=== PATIENT | female | born 1955 | race Caucasian/White ===

== ENCOUNTER → 2016-09-18 | Outpatient (CLI) | payer OTHER ==
[~2016-09-18] MED LIST: ALBU8I INH; AMBI5TAB PO; LORA-474 PO; NORC5TAB PO; PERC5TAB12 PO; PRED10 PO; VENTAER INH; ZOFR4TAB PO; ZOFR4TAB3 SL
== END ==
LOC: CPRE 09:28
PROVIDERS: ATTEND Orthopaedic Surgery
DX: Z01.812 Encounter for preprocedural laboratory examination (principal); M87.152 Osteonecrosis due to drugs, left femur; M79.609 Pain in unspecified limb

== ENCOUNTER 2016-12-20 10:02 | Day surgery (SDC) | payer OTHER ==
[~2016-12-20] VITALS: Ht 167.6 cm; Wt 51.0 kg
[~2016-12-20 10:02] MED LIST changes: -ALBU8I INH; -AMBI5TAB PO; -LORA-474 PO; +NS 1000P @30 MLS/HR (KVO) IV SCH; -PERC5TAB12 PO; -ZOFR4TAB3 SL
[2016-12-20] MEDS ORDERED: AMBI5TAB PO (10:59)
[2016-12-20] MEDS ORDERED: LORA-474 PO (10:59)
[2016-12-20 11:01] VITALS: BP 136/66; PULSE 104; RESP 18; TEMP 98; O2SAT 97
[2016-12-20 11:58] LABS: AUTOMATED NEUTROPHIL # 2.6 TH/MM3 (1.8-7.7); BASOPHIL # 0.1 TH/MM3 (0-0.2); BASOPHIL % 2.8 % (0.0-2.0); EOSINOPHIL # 0.2 TH/MM3 (0-0.4); EOSINOPHIL % 4.9 % (0.0-4.0); HEMATOCRIT 39.2 % (35.0-46.0); HEMO FLAGS DIFF FINAL; LYMPH % 26.1 % (9.0-44.0); LYMPHOCYTE # 1.3 TH/MM3 (1.0-4.8); MEAN CELL VOLUME 94.4 FL (80.0-100.0); MEAN CORPUSCULAR HEMOGLOBIN 32.8 PG (27.0-34.0); MEAN CORPUSCULAR HGB CONC 34.7 % (32.0-36.0); MONO % 12.2 % (0.0-8.0); PLATELET COUNT 220 TH/MM3 (150-450); RED BLOOD COUNT 4.16 MIL/MM3 (4.00-5.30); RED CELL DISTRIBUTION WIDTH 13.9 % (11.6-17.2); WHITE BLOOD COUNT 4.8 TH/MM3 (4.0-11.0)
[2016-12-20] MEDS ORDERED: HEPARIN-NS/PF INJ 500 ML ONE (12:10)
[2016-12-20 13:17] LABS: INTERNATIONAL NORMALIZED RATIO 1.2 RATIO; PROTHROMBIN TIME - PATIENT 13.1 SEC (9.8-11.6)
[2016-12-20 13:18] LABS: APTT (PATIENT) 31.5 SEC (24.3-30.1)
[2016-12-20 13:28] LABS: BICARBONATE 26.4 MEQ/L (21.0-32.0); POTASSIUM 3.9 MEQ/L (3.5-5.1)
[2016-12-20] MEDS ORDERED: MIDAZOLAM HCL 2 MG/2 ML VIAL ONE ×3 (13:34→14:48)
[2016-12-20] MEDS ORDERED: IOHEXOL 350 MG/ML 100 ML BTL (for Cath Lab) OTHER ONE (15:00)
--- NOTE | 2016-12-20 15:20 | CATHPROC ---
[employer] HIS Report Study Information Study Number Admission Scheduled Start Study Start 1037-17 12/20/2016 12/20/2016 Dec 20 2016 12:04PM Study Type [facility] Left and Right Heart Cath Cardiac Catheterization Referring Institution Admit Source Facility Department 1 Other [facility] - Collection Advisor Physician and Clinical Staff Initial Inderjit Brown Crystal Syrup Maker Jesus RN, Dean Recorder Aguila Griffin,RT(R) TECH2 Scrub Luzmaria Smith,RT(R) Procedures Performed Procedure Location (Site) Vessel Name Angiogram LV LV Ventricle Coronary Angiograms LCA Left Coronary Coronary Angiograms RCA Right Coronary Equipment Time Biometric Screener Description Size Mfg Part Number Used/Scraped [id number] 12:07 OWUSU ZIEGLER SWAN SHANI CATHETER FR 7 Used *[id number] TRANSDUCER, TRUWAVE [id number] 12:07 OWUSU ZIEGLER * Used W/STOCKCOCK *[id number] TRANSDUCER, TRUWAVE [id number] 12:07 OWUSU ZIEGLER * Used W/STOCKCOCK *[id number]-502-10.0- INTRODUCER SET, 12:07 [employer] FR 5 SC-NT-U-SST Used MICROPUNCTURE, STIFFENED *[id number] 538-476 *[id number] 538-420 *[id number] [id number] *[id number] INTRODUCER SET, 12:07 JRD Communication * [id number] Used MICROPUNCTURE [id number] 12:07 51 Give INDUSTRIES PACK, CCL CUSTOM * Used *[id number] 12:07 51 Give PACER PEN, SKIN DUAL W/ RULER * Used *[id number] 12:07 [email or web address] MEDICAL WIRE, 3MMJ .035 180CM 180CM Used *[id number] PROBE COVER, STERILE [id number] 12:07 [employer]UN * Used ULTRASOUND W/ GEL *[id number] 12:07 NAMIC MANIFOLD, 2 PORT * Used *[id number] 12:07 NAMIC MANIFOLD, 4 PORT * Used *[id number] 12:07 NYCOMED OMNIPAQUE, 350 MG, 150ML 150ML [id number] Used 14:46 NYCOMED OMNIPAQUE, 350 MG, 50ML 50ML [id number] Used [id number] 12:07 ELENA MEDICAL BLANKET,WARM AIR CCL * Used *[id number] 12:07 TERUMO MEDICAL SHEATH, FR4 TERUMO (10CM) FR 4 [id number] Used 12:07 TERUMO MEDICAL SHEATH, FR7 TERUMO (10CM) FR 7 [id number] Used History: Current Medications Medication Dosage/Unit Route Frequency Last Date/Time Taken PREDNISONE ATIVAN Ambien History: Allergies Allergy Reaction Ceftin NAUSEA/VOMITING/HIVES Dilaudid Confusion Ultram Confusion Cipro Nausea/Vomiting Latex Hives History: Risk Factors Family History of Hypertension Dyslipidemia Previous MD Previous Heart Failure Premature CAD No Yes No No No Prior Valve Prior PCI Prior CABG Surgery No No No Cerebrovascular Peripheral Artery Chronic Lung On Dialysis Diabetes Disease Disease Disease No No No Yes No History: Symptoms/Diagnosis Selection Items SOB History: Stress Tests Stress or Imaging Studies Performed Yes Standard Exercise Stress Test No Stress Echo No Stress Test SPECT No Stress Test CMR No Cardiac CTA Coronary Calcium Score No No History: Arrhythmias Selection Items Non-sustained VT PVC's History: Other Disease Selection Items COPD History: Other Current Smoker No Labs Hgb (g/dl) Hct (%) WBC (l/cumm) Platelets (thousands) 12.00-18.00 37.00-55.00 4.80-10.80 140.00-450.00 13.6 39.2 4.8 220 BUN (mg/dl) 8.00-20.00 90.7 Na (meq/l) K (meq/l) 138.00-146.00 3.80-5.10 137 3.9 PT (sec) INR (PTT:PT) 9.40-11.40 0.50-2.00 13.1 1.2 CPK-MB (ng/ML) 0.00-7.00 Not Drawn Medication Medication Total Dose (Bolus/Oral) Medication Total Dosage/Unit 1% XYLOCAINE 20 mL FENTANYL 100 mcg VERSED 5 mg Medications (Bolus/Oral) Medication Time Given Dosage/Unit Administered By Reason 1% XYLOCAINE 12/20/2016 2:26:59 PM 20 mL Inderjit Mancia 20 mL 1% XYLOCAINE given in lab by Inderjit Mancia in Right Groin via Subcutaneous. Ordered by Inderjit Moon. FENTANYL 12/20/2016 2:27:00 PM 50 mcg Dean Lee RN 50 mcg FENTANYL given in lab by Dean Lee RN via Peripheral IV. Ordered by Inderjit Mancia. VERSED 12/20/2016 2:28:00 PM 2 mg Dean Lee RN 2 mg VERSED given in lab by Dean Lee RN via Peripheral IV. Ordered by Inderjit Mancia. FENTANYL 12/20/2016 2:31:59 PM 50 mcg Dean Lee RN 50 mcg FENTANYL given in lab by Dean Lee RN via Peripheral IV. Ordered by Inderjit Mancia. VERSED 12/20/2016 2:32:00 PM 1 mg Dean Lee RN 1 mg VERSED given in lab by Dean Lee RN via Peripheral IV. Ordered by Inderjit Mancia. VERSED 12/20/2016 2:40:00 PM 1 mg Jesus AMBROSE, Dean 1 mg VERSED given in lab by Dean Lee RN via Peripheral IV. Ordered by Inderjit Mancia. VERSED 12/20/2016 2:49:00 PM 1 mg Dean Lee RN 1 mg VERSED given in lab by Dean Lee RN via Peripheral IV. Ordered by Inderjit Mancia. Medication (Drip) Medication Time Given Dosage/Unit Concentration/Unit Diluent (ml) Solution IV Solutions 12/20/2016 1:37:30 PM 0 mL (IV) 500 NaCl .9 Patient arrived on IV Solutions in Right Forearm via Peripheral IV. Pump/Drip Flow = 20 ml/hr using N aCl .9. Ordered by Inderjit Mancia. Initial Case Assessment Cardiovascular HR Rhythm 92 sr Edema Present Skin color Skin None Normal Warm Dry Circulatory - Right Pulses Dorsalis Pedis Femoral 2 2 Scale (0,1,2,3,4,d) Circulatory - Left Pulses Dorsalis Pedis Femoral 2 2 Scale (0,1,2,3,4,d) Circulatory - Lower Extremities Color Lower Right Color Lower Left Normal Normal Neurological State Oriented to time-place- Alert Moves all extremities person Respiration - General SpO2 (%) 100 Final Case Assessment Cardiovascular HR Rhythm NIBP Chest Pain 90 sr 124/65 0 Edema Present Skin color Skin None Normal Warm Dry Circulatory - Right Pulses Dorsalis Pedis Femoral 2 2 Scale (0,1,2,3,4,d) Circulatory - Left Pulses Dorsalis Pedis Femoral 2 2 Scale (0,1,2,3,4,d) Circulatory - Lower Extremities Color Lower Right Color Lower Left Normal Normal Neurological State Oriented to time-place- Alert Moves all extremities person Respiration - General SpO2 (%) 100 Chronological Log Time Study Chronological Log 13:37:14 Patient arrived via Bed. 13:37:15 Patient Name, D.O.B, / Armband Verified By R.N. 13:37:16 Consent signed by the physician and the patient and verified by the Collection Advisor staff. 13:37:19 Pre-op and post- op instructions given; patient acknowledges understanding of instructions. 13:37:22 Patient has been NPO for Less than 6Hrs. 13:37:22 Skin Breakdown- none 13:37:24 Patient Warmer Placed on the Table. 13:37:27 Abilio Prominences Protected 13:37:28 A # 20 IV was noted in the Forearm (right). Grade = 0 Patient arrived on IV Solutions in Right Forearm via Peripheral IV. Pump/Drip Flow = 20 ml/hr u sing NaCl .9. Ordered 13:37:30 by Inderjit Mancia. 13:37:34 History and physical on the chart or being dictated. Assessment: Initial Case, HR=92 BPM, Rhythm=sr, Edema=None, Color=Normal, Skin = Warm, Dry Right Pulses: Amador Ped=2, Femoral=2 Left Pulses: Amador Ped=2, Femoral=2 13:37:36 Lower Right Extremities: Color=Normal Lower Left Extremities: Color=Normal Neurological: State=Alert, Ox3, MENDEZ Respiration: XhR4=441 % 13:37:40 Table restraints applied according to hospital policy 13:37:43 Bilateral groins prepped with 2% chlorhexidine, and with a 3 min. waiting time. Vitals capture started with the following parameters, Patient=Adult, Interval=15 min, Initial P qzdweog=799 mmHg, :39:17 Deflation Rate=5 mmHg 13:39:29 Vitals capture stopped. Vitals capture started with the following parameters, Patient=Adult, Interval=15 min, Initial P lbgfmig=597 mmHg, 13:40:13 Deflation Rate=5 mmHg 13:40:39 Reference ECG taken 13:40:57 HR=94 bpm, UTCH=882/71 mmhg, SpO2=99.0 %, Resp=17 B/min, Pain=0, Quang=10, Malone=2 13:45:47 HR=96 bpm, MDHY=069/79 mmhg, SpO2=99.0 %, Resp=16 B/min 13:50:48 HR=85 bpm, IJUA=709/80 mmhg, SpO2=98.0 %, Resp=14 B/min 13:55:52 HR=93 bpm, KQUP=962/75 mmhg, SpO2=98.0 %, Resp=20 B/min, Pain=0, Quang=10, Malone=2 14:00:48 HR=82 bpm, JZAF=968/76 mmhg, SpO2=98.0 %, Resp=13 B/min, Pain=0, Quang=10, Malone=2 14:03:40 Pressure channel 1 zeroed. 14:05:52 HR=88 bpm, DNFF=792/74 mmhg, SpO2=99.0 %, Resp=12 B/min 14:06:24 Pressure channel 2 zeroed. 14:10:49 HR=89 bpm, VHCM=416/84 mmhg, SpO2=99.0 %, Resp=11 B/min, Pain=0, Quang=10, Malone=2 14:15:52 HR=91 bpm, NUOL=842/85 mmhg, SpO2=98.0 %, Resp=13 B/min, Pain=0, Quang=10, Malone=2 14:20:51 HR=87 bpm, SAQX=610/82 mmhg, SpO2=98.0 %, Resp=32 B/min, Pain=0, Quang=10, Malone=2 14:22:53 The physician was 120 minutes late. 14:25:50 HR=97 bpm, TBUK=340/70 mmhg, SpO2=97.0 %, Resp=20 B/min Time Out. Correct patient, correct procedure,correct physician, ,power injector loaded or not l oaded with contrast with 14:26:29 surgical team present. Time Out Concurred by MD, individual staff and DIE CASTING MACHINE SETTER in procedure 14:26:39 Case Start 20 mL 1% XYLOCAINE given in lab by Inderjit Mancia in Right Groin via Subcutaneous. Ordered by Blanche, 14:26:59 Inderjit. 14:27:00 50 mcg FENTANYL given in lab by Dean Lee RN via Peripheral IV. Ordered by Courtney Mancia. 14:27:10 Access site was Right Femoral Artery. 14:27:18 Access site was Right Femoral Vein. 14:28:00 2 mg VERSED given in lab by Dean Lee RN via Peripheral IV. Ordered by Inderjit Mancia. A INTRODUCER SET, MICROPUNCTURE, STIFFENED FR 5 was advanced into the Fem Art (right) using the Modified 14:30:36 Seldinger technique. 14:30:53 HR=93 bpm, ZJQE=911/74 mmhg, SpO2=95.0 %, Resp=20 B/min, Pain=0, Quang=10, Malone=2 A SHEATH, FR4 TERUMO (10CM) FR 4 was exchanged in the Fem Art (right). This was necessary in or monica to 14:31:03 accomodate a larger catheter. 14:31:59 50 mcg FENTANYL given in lab by Dean Lee RN via Peripheral IV. Ordered by Courtney Mancia. 14:32:00 1 mg VERSED given in lab by Dean Lee RN via Peripheral IV. Ordered by Inderjit Mancia. A JL 4.0 INFINITI CATHETER FR 4 was advanced over a wire. OMNIPAQUE, 350 MG, 150ML 150ML was us ed for 14:34:24 injections. Recorded Pressure: Ao, HR=88, Condition=Condition 1 14:35:10 (Aorta) Ao 128/77/99 14:35:28 The LCA was injected and visualized at various angles. OMNIPAQUE, 350 MG, 150ML 150ML used . Recorded Pressure: Ao, HR=87, Condition=Condition 1 14:35:50 (Aorta) Ao 130/75/98 14:35:52 HR=88 bpm, ASXC=979/71 mmhg, SpO2=95.0 %, Resp=14 B/min, Pain=0, Quang=10, Malone=2 After removing the current catheter a 3DRC INFINITI CATHETER FR 4 was advanced over a WIRE, 3MM J .035 180CM 14:39:25 180CM. 14:39:34 The RCA was injected and visualized at various angles. OMNIPAQUE, 350 MG, 150ML 150ML used . 14:40:00 1 mg VERSED given in lab by Dean Lee RN via Peripheral IV. Ordered by Inderjit Mancia. 14:40:51 HR=89 bpm, DRXL=109/75 mmhg, SpO2=95.0 %, Resp=11 B/min, Pain=0, Quang=10, Malone=2 After removing the current catheter a PIGTAIL ANG. INFINITI CATHETER FR 4 was advanced over a W WILLIE, 3MMJ .035 14:41:14 180CM 180CM. Recorded Pressure: LV, HR=84, Condition=Condition 1 14:43:02 (Left Ventricle) LV 131/2/8 Recorded Pressure: LV, Ao, HR=87, Condition=Condition 1 14:45:23 (Left Ventricle) LV 128/-19/10, (Aorta) Ao 124/65/92 14:45:48 The LV was injected at 8 cc/sec for a total of 32. OMNIPAQUE, 350 MG, 50ML 50ML used. 14:45:54 HR=88 bpm, YFZZ=689/66 mmhg, SpO2=93.0 %, Resp=19 B/min, Pain=0, Quang=10, Malone=2 A INTRODUCER SET, MICROPUNCTURE, STIFFENED FR 5 was advanced into the Fem Vein (right) using th e Modified 14:47:12 Seldinger technique. 14:47:21 A SHEATH, FR7 TERUMO (10CM) FR 7 was advanced into the Fem Vein (right) using the Modified Seldinger technique. 14:49:00 1 mg VERSED given in lab by Dean Lee RN via Peripheral IV. Ordered by Inderjit Mancia. 14:49:03 A SWAN SHANI CATHETER FR 7 was inserted via Fem Vein (right) 14:50:47 HR=86 bpm, SSPP=677/114 mmhg, SpO2=96.0 %, Resp=12 B/min Recorded Pressure: PCW, HR=83, Condition=Condition 1 14:51:10 (Pulmonary Capillary Wedge) PCW Recorded Pressure: MPA, HR=84, Condition=Condition 1 14:51:27 (Main Pulmonary Artery) MPA 17/06/17 Recorded Pressure: PCW, HR=89, Condition=Condition 1 14:54:23 (Pulmonary Capillary Wedge) PCW Thermo CO: CO=4.8 l/m, HR=89 bpm, Condition=Condition 1. Used in calculation. 14:55:29 Equipment: Description and Size=SWAN SHANI CATHETER FR 7, Type=Bath Probe, CC=0.579 Injectant: Temp=19.0 - 22.0 Celsius, Volume=10.0 ml 14:55:58 HR=88 bpm, DEDO=910/65 mmhg, SpO2=95.0 %, Resp=11 B/min, Pain=0, Quang=10, Malone=2 Thermo CO: CO=4.7 l/m, HR=90 bpm, Condition=Condition 1. Used in calculation. 14:55:59 Equipment: Description and Size=SWAN SHANI CATHETER FR 7, Type=Bath Probe, CC=0.579 Injectant: Temp=19.0 - 22.0 Celsius, Volume=10.0 ml Thermo CO: CO=4.6 l/m, HR=82 bpm, Condition=Condition 1. Used in calculation. 14:56:38 Equipment: Description and Size=SWAN SHANI CATHETER FR 7, Type=Bath Probe, CC=0.579 Injectant: Temp=19.0 - 22.0 Celsius, Volume=10.0 ml 14:57:07 Saturation: Site=Ao (Aorta) , O2=95.9 %, Hgb=13.6 gm/dl, Condition=Condition 1. Used in jad culation. 14:57:34 Saturation: Site=PA (Pulmonary Artery) , O2=79.5 %, Hgb=13.6 gm/dl, Condition=Condition 1. Used in calculation. Recorded Pressure: RV, HR=89, Condition=Condition 1 14:58:07 (Right Ventricle) RV Recorded Pressure: RA, HR=85, Condition=Condition 1 14:58:23 (Right Atrium) RA Recorded Pressure: RA, HR=88, Condition=Condition 1 14:58:34 (Right Atrium) RA 14:59:20 Saturation: Site=RA (Right Atrium) , O2=79.1 %, Hgb=13.6 gm/dl, Condition=Condition 1. Used in calculation. 15:00:55 HR=88 bpm, FIPD=165/56 mmhg, SpO2=97.0 %, Resp=8 B/min, Pain=0, Quang=10, Malone=2 15:01:50 [place] Shani Catheter Removed 15:02:02 Case End 15:06:31 HR=86 bpm, HEEG=662/70 mmhg, SpO2=97.0 %, Resp=10 B/min, Pain=0, Quang=10, Malone=2 Assessment: Final Case, HR=90 BPM, Rhythm=sr, INOJ=367/65 mmhg, Chest Pain=0, Edema=None, Amoret r=Normal, Skin = Warm, Dry Right Pulses: Amador Ped=2, Femoral=2 Left Pulses: Amador Ped=2, Femoral=2 15:09:56 Lower Right Extremities: Color=Normal Lower Left Extremities: Color=Normal Neurological: State=Alert, Ox3, MENDEZ Respiration: TgW1=333 % 15:12:01 Patient moved to stretcher 15:24:59 notes updated. d.e.r. End Study - Contrast Media Used In Study Contrast Total Opened (mL) Total Used (mL) Total Wasted (mL) Omnipaque 200 72 128 End Study - Radiation Exposure Fluoro Time (minutes) 3.4 End Study - Patient Disposition Complications Transferred To Interventional Outcome No Collection Advisor Holding No attempt made
--- NOTE | 2016-12-21 12:32 | MA ---
cc: INDERJIT MANCIA M.D., C. B. M.D (CHARLES). DATE 12/20/2016 PROCEDURE PERFORMED Cardiac catheterization. INDICATION FOR CATHETERIZATION. 1. Mitral regurgitation. 2. Shortness of breath on exertion. CONSENT A full, informed consent was obtained prior to the procedure. The risks of , bleeding, myocardial infarction, perforation, aspiration, foreseen and unforeseen complications were reviewed. The patient fully appeared to understand the risks. PROCEDURAL STATEMENTS The patient was draped and prepped in the usual manner. The right femoral artery and vein were entered using a micropuncture technique. Via the 4-Maltese sheath, a full left heart catheterization was carried out with bilateral coronaries and left ventriculogram. Following this, a right heart catheterization was carried out via the venous 7-Maltese sheath including cardiac outputs and saturations. At the end of the all catheters were removed. The sheaths were left in place, to be pulled in the holding area. FINDINGS I. HEMODYNAMICS The left ventricular pressure was 128 with the left ventricular end-diastolic pressure of 10. The aortic pressure was 124/____ with mean of 92. The mean pulmonary artery pressure is 26/11 with a mean of 17. The wedge pressure was 7/4 with a mean of 4. The right ventricular pressure was 24 with a right ventricular end-diastolic pressure of 3. The right atrial pressure was 3/1. ANGIOGRAPHY CORONARIES The left main is short and free of significant disease. The left anterior descending artery is a large vessel with enlarged first diagonal branch that trifurcated. The remainder of the LAD was large with a large septal process control specialist. There is no evidence of significant coronary artery disease. The circumflex artery is a large, very tortuous vessel and is free of significant disease. The right coronary artery gave off a medium-sized posterior descending artery and a large posterolateral branch. The right coronary artery was also very tortuous with mild 25-30% disease in its mid-section. LEFT VENTRICULOGRAM The left ventricular ejection fraction is estimated at 60%; it is normal. There is evidence of 4+ mitral regurgitation. CONCLUSIONS 1. Normal LV function. 2. 4+ mitral regurgitation. 3. No significant coronary artery disease. PLAN We will have to reevaluate for possible mitral valve repair. Given her very bad COPD, we will consider mitral valve clip versus minimally invasive mitral valve replacement. Inderjit Mancia MD, LINK,[facility]/CASSANDRA D 12/20/2016/3:19 PM T 01/03/2017/9:33 AM
--- NOTE | 2016-12-22 17:51 | MA ---
cc: INDERJIT MANCIA M.D. Corrected: 01/02/2017 DATE OF PROCEDURE 12/22/16 INDICATION FOR CATHETERIZATION Mitral regurgitation, marked shortness of breath. CONSENT Full informed consent was obtained prior to procedure. The risks of , bleeding, myocardial infarction, stroke, foreseen and foreseen complications reviewed. The patient fully appeared to understand the risks. PROCEDURE 1. Sedation. 2. Right and left heart catheterization. 3. Coronaries. 4. LV gram. PROCEDURAL STATEMENTS The patient was draped and prepped in the usual manner. The right femoral artery was entered using a micropuncture technique via the 4-Lithuanian sheath. Left and right coronary catheters used to intubate the left and right coronaries, pigtail catheter the left ventricle. Multiple angiographic views were carried out. Following this a full right heart catheterization was carried out. FINDINGS 1. HEMODYNAMICS: Thermodilution cardiac output was estimated at 4.7 liters per minute. Pulmonary artery saturation was 79.5, right ventricular pressure is 24 with a right ventricular end systolic pressure . Right atrial pressure was 4/2 with mean of 1. The wedge pressure was 7/4 with a mean of 4. Pulmonary artery pressure was 26/11 with a mean of 17. Femoral artery saturation was 97.0. CORONARIES The left main was short and free of significant disease. The left anterior descending had a very tortuous and free of significant disease. The circumflex artery was a large vessel with a large obtuse marginal branch and was free of significant disease. The right coronary artery was a large dominant artery with a medium sized PDA and a large posterolateral branch. There was a large diagonal branch, also free of significant disease coming off the LAD. There is a large tortuous obtuse marginal branch that was free of significant disease. LV gram showed normal ejection fraction 60%, heavy mitral annular calcification. There is evidence of 4+ mitral regurgitation. CONCLUSION 1. 4+ mitral vegetation. No significant coronary artery disease. PLAN Will possibly need mitral valve repair versus replacement and possibly a mitral valve clip given her history of severe lung disease. Inderjit Mancia MD, FRCP,FACC HAJ/ELIAN /3:13 PM /8:40 AM ZACH
== END 2016-12-20 19:42 | disposition home or self-care (01) ==
LOC: HDOC 10:02 → HDIC 10:03 → HDOC 19:42
PROVIDERS: ATTEND Internal Medicine Cardiovascular Disease
DX: I34.0 Nonrheumatic mitral (valve) insufficiency (principal); I34.1 Nonrheumatic mitral (valve) prolapse; J44.9 Chronic obstructive pulmonary disease, unspecified; F41.9 Anxiety disorder, unspecified; E78.5 Hyperlipidemia, unspecified; Z88.1 Allergy status to other antibiotic agents
CPT/HCPCS: 80048; 85025; 85610; 85730; 93460; C1769; C1893; J1644; J2250; J3010; J7030; Q9967

== ENCOUNTER 2017-04-19 07:53 | Day surgery (SDC) | payer MEDICARE, OTHER ==
--- NOTE | 2017-04-18 13:20 | PD.CAR.PN ---
CVT Progress Note Subjective/Hospital Course: sts data discussed with pt RISK SCORES About the STS Risk Calculator Procedure: MV Replacement Only Risk of Mortality: 1.542% Morbidity or Mortality: 16.524% Long Length of Stay: 7.432% Short Length of Stay: 26.023% Permanent Stroke: 1.083% Prolonged Ventilation: 10.844% DSW Infection: 0.139% Renal Failure: 2.225% Reoperation: 8.794% Tonya Jacobson Apr 18, 2017 13:20
[~2017-04-19] VITALS: Ht 167.6 cm; Wt 51.2 kg
[2017-04-19 06:11] VITALS: RESP 22; TEMP 97.8
[2017-04-19 07:16] VITALS: BP 120/79; PULSE 91; O2SAT 96
[~2017-04-19 07:53] MED LIST changes: +AMBI5TAB PO; +BUPIVACAINE HCL PF 0.5% 30 ML VIAL ONE; +CEFAZOLIN 500 MG in NS IRR BTL 500 ML IRRIGATION SCH; +CHLORHEXIDINE GLUCONATE 2 % 1 PACK (2 CLOTHS) TOPICAL PRN; +CHLORHEXIDINE GLUCONATE 4% SOLN 120 ML BTL TOPICAL SCH; +HEPARIN SODIUM - SQ 10,000 UNITS/ML VIAL ONE; +INSULIN HUMAN REGULAR 1,000 UNITS/10 ML VIAL SQ PRN; +INSULIN REGULAR 100 UNITS in NS 100 ML IV SCH; +IPRA17I INH; +LACTATED RINGER'S 1000 ML IV PRN; +LORA-474 PO; +METOPROLOL TARTRATE 25 MG TAB PO PRN; +METOPROLOL TARTRATE 25 MG TAB PO SCH; -NS 1000P @30 MLS/HR (KVO) IV SCH; +POVIDONE IODINE 5% (ANTISEPSIS KIT) 4 APPLICATIONS EACH NARE PRN; +SODIUM CHLORID 0.9% 500 ML IV PRN; +VANCOMYCIN HCL 1000 MG VIAL ONE; +ceFAZolin 2 GM PREMIX 0 ML ONE; +ceFAZolin 2 GM PREMIX 50 ML IV SCH; +methylPREDNISolone SOD SUCC 125 MG/2 ML VIAL ONE
--- NOTE | 2017-04-19 08:12 | EKG ---
Date Performed: 04/19/2017 Time Performed: 06:22:48 PTAGE: 62 years EKG: Sinus tachycardia with non-sustained ventricular tachycardia Left axis deviation Lateral ST -T changes are nonspecific Since previous tracing, now with NSVT Abnormal ECG PREVIOUS TRACING : 10/10/2014 13.35 DOCTOR: Zohra Mckay Interpretating Date/Time 04/19/2017 08:10:37
[2017-04-19 08:57] LABS: MRSA PCR NEGATIVE (NEGATIVE); STAPH AUREUS PCR NEGATIVE (NEGATIVE)
[2017-04-19] MEDS ORDERED: MIDAZOLAM HCL 5 MG/5 ML VIAL IV ONE (12:00)
[2017-04-19] MEDS ORDERED: fentaNYL CITRATE 1000 MCG/20 ML VIAL IV ONE (12:00)
== END 2017-04-19 08:07 | disposition home or self-care (01) ==
LOC: HSDC 07:53 → HSDI 07:55 → HSDC 08:07
PROVIDERS: ATTEND Thoracic Surgery (Cardiothoracic Vascular Surgery)
DX: I34.0 Nonrheumatic mitral (valve) insufficiency (principal); I50.33 Acute on chronic diastolic (congestive) heart failure; I47.2 Ventricular tachycardia; I10 Essential (primary) hypertension; I25.10 Atherosclerotic heart disease of native coronary artery without angina pectoris; J44.9 Chronic obstructive pulmonary disease, unspecified; Z53.09 Procedure and treatment not carried out because of other contraindication; Z79.891 Long term (current) use of opiate analgesic; Z79.51 Long term (current) use of inhaled steroids; Z79.52 Long term (current) use of systemic steroids; Z79.899 Other long term (current) drug therapy
CPT/HCPCS: 86850; 86900; 86901; 86920; 87640; 87641; 93005; G0463; J0690; J1644; J2250; J3010; J7120; 36430; 99211; J2930; J3370; P9016

== ENCOUNTER 2017-05-07 05:23 | Inpatient (IN) | payer OTHER, MEDICARE ==
[~2017-05-07] VITALS: Ht 167.6 cm; Wt 57.5 kg
[2017-05-07] VITALS (8 sets, daily range): BP systolic 94–157; BP diastolic 56–83; PULSE 91–109; RESP 12–18; TEMP 94.5–97.8; O2SAT 93–100
[~2017-05-07 05:23] MED LIST changes: -BUPIVACAINE HCL PF 0.5% 30 ML VIAL ONE; -CEFAZOLIN 500 MG in NS IRR BTL 500 ML IRRIGATION SCH; -CHLORHEXIDINE GLUCONATE 2 % 1 PACK (2 CLOTHS) TOPICAL PRN; -CHLORHEXIDINE GLUCONATE 4% SOLN 120 ML BTL TOPICAL SCH; -HEPARIN SODIUM - SQ 10,000 UNITS/ML VIAL ONE; -INSULIN HUMAN REGULAR 1,000 UNITS/10 ML VIAL SQ PRN; -INSULIN REGULAR 100 UNITS in NS 100 ML IV SCH; -LACTATED RINGER'S 1000 ML IV PRN; -METOPROLOL TARTRATE 25 MG TAB PO PRN; -METOPROLOL TARTRATE 25 MG TAB PO SCH; -POVIDONE IODINE 5% (ANTISEPSIS KIT) 4 APPLICATIONS EACH NARE PRN; -SODIUM CHLORID 0.9% 500 ML IV PRN; -VANCOMYCIN HCL 1000 MG VIAL ONE; -VENTAER INH; -ZOFR4TAB PO; -ceFAZolin 2 GM PREMIX 0 ML ONE; -ceFAZolin 2 GM PREMIX 50 ML IV SCH; -methylPREDNISolone SOD SUCC 125 MG/2 ML VIAL ONE
[2017-05-07] MEDS ORDERED: METOPROLOL TARTRATE 25 MG TAB PO PRN (05:45)
[2017-05-07] MEDS ORDERED: POVIDONE IODINE 5% (ANTISEPSIS KIT) 4 APPLICATIONS EACH NARE PRN (05:45)
[2017-05-07] MEDS ORDERED: INSULIN HUMAN REGULAR 1,000 UNITS/10 ML VIAL SQ PRN (05:45)
[2017-05-07] MEDS ORDERED: ceFAZolin 2 GM PREMIX 50 ML IV SCH (05:45)
[2017-05-07] MEDS ORDERED: INSULIN REGULAR 100 UNITS in NS 100 ML IV PRN (05:45)
[2017-05-07] MEDS ORDERED: LACTATED RINGER'S 1000 ML IV PRN (05:45)
[2017-05-07] MEDS ORDERED: CHLORHEXIDINE GLUCONATE 4% SOLN 120 ML BTL TOPICAL SCH (05:45)
[2017-05-07] MEDS ORDERED: SODIUM CHLORID 0.9% 500 ML IV PRN (05:45)
[2017-05-07] MEDS ORDERED: METOPROLOL TARTRATE 25 MG TAB PO SCH (05:45)
[2017-05-07] MEDS ORDERED: CHLORHEXIDINE GLUCONATE 2 % 1 PACK (2 CLOTHS) TOPICAL PRN (05:45)
[2017-05-07 06:26] LABS: AUTOMATED NEUTROPHIL # 3.4 TH/MM3 (1.8-7.7); BASOPHIL # 0.2 TH/MM3 (0-0.2); BASOPHIL % 2.3 % (0.0-2.0); EOSINOPHIL # 0.5 TH/MM3 (0-0.4); EOSINOPHIL % 7.8 % (0.0-4.0); HEMATOCRIT 39.1 % (35.0-46.0); HEMO FLAGS DIFF FINAL; LYMPH % 29.6 % (9.0-44.0); LYMPHOCYTE # 1.9 TH/MM3 (1.0-4.8); MEAN CELL VOLUME 96.5 FL (80.0-100.0); MEAN CORPUSCULAR HEMOGLOBIN 33.3 PG (27.0-34.0); MEAN CORPUSCULAR HGB CONC 34.5 % (32.0-36.0); MONO % 7.2 % (0.0-8.0); NEUT % 53.1 % (16.0-70.0); PLATELET COUNT 231 TH/MM3 (150-450); RED BLOOD COUNT 4.05 MIL/MM3 (4.00-5.30); RED CELL DISTRIBUTION WIDTH 13.1 % (11.6-17.2); WHITE BLOOD COUNT 6.4 TH/MM3 (4.0-11.0)
[2017-05-07] MEDS ORDERED: HEPARIN SODIUM - SQ 10,000 UNITS/ML VIAL ONE (06:33)
[2017-05-07] MEDS ORDERED: methylPREDNISolone SOD SUCC 125 MG/2 ML VIAL ONE (06:34)
[2017-05-07] MEDS ORDERED: ceFAZolin 2 GM PREMIX 50 ML ONE (06:34)
[2017-05-07] MEDS ORDERED: VANCOMYCIN HCL 1000 MG VIAL ONE (06:34)
[2017-05-07 06:40] LABS: INTERNATIONAL NORMALIZED RATIO 1.1 RATIO
[2017-05-07 06:47] LABS: BICARBONATE 22.5 MEQ/L (21.0-32.0); POTASSIUM 3.6 MEQ/L (3.5-5.1)
[2017-05-07 06:50] LABS: BLOOD, URINE NEG (NEG); COMMENT (UR) CULT NOT INDICATED; CULTURE IF INDICATED CULT NOT INDICATED; GLUCOSE,URINE NEG (NEG); KETONE, URINE NEG (NEG); NITRITE,URINE NEG (NEG); SQUAMOUS EPITHELIAL CELL URINE <1 /hpf (0-5); URINE COLOR LIGHT-YELLOW (YELLW/STRAW)
[2017-05-07] MEDS ORDERED: CUSTODIOL HTK IRR SOLN 2,000 ML ONE (07:18)
[2017-05-07] MEDS ORDERED: MANNITOL INJ 100 ML ONE (07:18)
[2017-05-07] MEDS ORDERED: HEPARIN SODIUM - IV 10,000 UNITS/10 ML VIAL ONE (07:19)
[2017-05-07] MEDS ORDERED: POTASSIUM CHLORIDE 20 MEQ/10 ML VIAL ONE (07:19)
[2017-05-07] MEDS ORDERED: SODIUM BICARBONATE 8.4% INJ 100 ML ONE (07:20)
[2017-05-07] MEDS: MUPIROCIN 2% OINT 22 GM TUBE EACH NARE SCH ×2 (09:00→21:00)
[2017-05-07] MEDS ORDERED: BUPIVACAINE HCL PF 0.5% 30 ML VIAL ONE (10:46)
[2017-05-07] MEDS ORDERED: DEXMEDETOMIDINE HCL 200 MCG/2 ML VIAL ONE (10:53)
[2017-05-07] MEDS ORDERED: HEPARIN SODIUM - SQ 10,000 UNITS/ML VIAL SQ ONE (12:00)
[2017-05-07] MEDS ORDERED: VECURONIUM BROMIDE 10 MG VIAL IV ONE (12:00)
[2017-05-07] MEDS ORDERED: PROTAMINE SULFATE 250 MG/25 ML VIAL IV ONE (12:00)
[2017-05-07] MEDS ORDERED: MIDAZOLAM HCL 2 MG/2 ML VIAL IV ONE (12:00)
[2017-05-07] MEDS ORDERED: NOREPINEPHRINE 4 MG/4 ML AMP IV ONE (12:00)
[2017-05-07] MEDS ORDERED: SODIUM BICARBONATE 8.4% INJ 50 MEQ/50 ML SYR IV ONE (12:00)
[2017-05-07] MEDS ORDERED: ARTIFICIAL TEARS OPTH OINT 3.5 APPLIC/3.5 GM TUBO EACH EYE ONE (12:00)
[2017-05-07] MEDS ORDERED: LIDOCAINE HCL 2% 100 MG/5 ML SYRINGE OTHER ONE (12:00)
[2017-05-07] MEDS ORDERED: ESMOLOL HCL 100 MG/10 ML VIAL IV ONE (12:00)
[2017-05-07] MEDS ORDERED: PROPOFOL 500 MG/50 ML BTL IV ONE (12:00)
[2017-05-07] MEDS ORDERED: CARDIOPLEGIC IRR 2,000 ML IRRIGATION ONE (12:00)
[2017-05-07] MEDS ORDERED: MAGNESIUM SULFATE 1 GM/2 ML VIAL IV ONE (12:00)
[2017-05-07] MEDS ORDERED: PHENYLEPH/NS 1000 MCG/10 ML SYR IV ONE (12:00)
[2017-05-07] MEDS ORDERED: PHENYLEPHRINE HCL 10 MG/ML VIAL IV ONE (12:00)
[2017-05-07] MEDS ORDERED: ePHEDrine/NS 25 MG/5 ML SYR IV ONE (12:00)
[2017-05-07] MEDS ORDERED: CALCIUM CHLORIDE 10% SOLN 1 GRAM/10 ML SYR IV ONE (12:00)
[2017-05-07] MEDS ORDERED: LACTATED RINGER'S 1000 ML INJ 500 ML IV PRN (12:09)
[2017-05-07] MEDS ORDERED: ALBUMIN 5% INJ 250 ML IV PRN (12:15)
[2017-05-07] MEDS ORDERED: SODIUM BICARBONATE 8.4% SOLN 50 MEQ/50 ML VIAL IV PUSH PRN ×2 (12:15)
[2017-05-07] MEDS ORDERED: CALCIUM CHLORIDE INJ 1 GM in SODIUM CHLORIDE 0.9% INJ 100 ML IV PRN (12:15)
[2017-05-07] MEDS ORDERED: NOREPINEPHRINE-DEXTROSE DRIP 250 ML IV SCH (12:15)
[2017-05-07] MEDS ORDERED: CALCIUM CHLORIDE 10% 1 GRAM/10 ML VIAL IV PUSH PRN (12:15)
[2017-05-07] MEDS ORDERED: INSULIN REGULAR (IV INFUSION) 100 UNITS in SODIUM CHLORIDE 0.9% INJ 99 ML IV PRN (12:15)
[2017-05-07] MEDS ORDERED: CLEVIDIPINE INJ 50 ML IV PRN (12:15)
[2017-05-07] MEDS ORDERED: hydrALAZINE HCL 20 MG/ML VIAL IV PUSH PRN (12:15)
[2017-05-07] MEDS ORDERED: METOPROLOL TARTRATE 5 MG/5 ML VIAL IV PUSH PRN (12:15)
[2017-05-07] MEDS ORDERED: Post-op Orders (for Pharmacy) MISC OTHER ONE (12:15)
[2017-05-07] MEDS ORDERED: ONDANSETRON HCL 4 MG/2 ML VIAL IV PUSH PRN (12:15)
[2017-05-07] MEDS ORDERED: ACETAMINOPHEN 650 MG SUPP RECTAL PRN (12:15)
[2017-05-07] MEDS ORDERED: ACETAMINOPHEN 325 MG TAB PO PRN (12:15)
[2017-05-07] MEDS ORDERED: MAGNESIUM SULFATE INJ 2 GM in SODIUM CHLORIDE 0.9% INJ 100 ML IV PRN ×4 (12:15)
[2017-05-07] MEDS ORDERED: POTASSIUM CHLOR 20 MEQ PREMIX 100 ML IV PRN ×2 (12:15)
[2017-05-07] MEDS ORDERED: RESP: RACEPINEPHRINE 2.25% 0.5 ML NEB NEB PRN (12:15)
[2017-05-07] MEDS ORDERED: POTASSIUM CHLORIDE 20 MEQ CONTROLLED RELEASE TAB PO PRN ×2 (12:15)
[2017-05-07] MEDS ORDERED: LORazepam 1 MG TAB PO PRN (12:15)
[2017-05-07] MEDS ORDERED: DEXMEDETOMIDINE INJ 200 MCG in SODIUM CHLORIDE 0.9% INJ 50 ML IV PRN (12:15)
--- NOTE | 2017-05-07 12:31 | PD.OP ---
cc: Inderjit Mancia MD; Argentina Molina MD Operative Report Date of Surgery: May 07, 2017 Preoperative Diagnosis: (1) Mitral regurgitation (2) Diastolic CHF due to valvular disease Postoperative Diagnosis: same Procedure: Minimally invasive MV repair with a 30 Camden ring WENDI Ultrasound guided percutaneous cannulation of the left femoral artery and vein with Perclose closure of the artery Anesthesia: Dr. Mohr Surgeon: Argentina Molina Crushing Mill Operator(s): Tommy Fletcher MD Operation and Findings: Standard monitoring lines and Melton catheter were placed. General anesthesia was induced. The patient was prepped and draped in a sterile fashion. A 6 cm right anterior thoracotomy was performed in the 5th intercostal space. An Jared retractor was placed followed by a small chest retractor. The pericardium was opened and a pericardial sling was created using interrupted 0 silk sutures. A small 1 cm incision was made at the 7th intercostal space and an LV vent CO2 line were placed through this access port. The aorta was dissected posteriorly for crossclamp placement. The left femoral artery and vein were percutaneously accessed using ultrasound guidance. The patient was heparinized for cardiopulmonary bypass. The left femoral artery was cannulated with a 17F [employer] arterial cannula. The left femoral vein was cannulated with a 21 [employer] cannula under WENDI guidance. Three Perclose devices were placed in the artery for later closure. Antegrade Custodiol cardioplegia was employed. The patient was placed on cardiopulmonary bypass. Waterstons groove was dissected using electrocuatery and blunt dissection. An aortic cross-clamp was applied and the heart was arrested using cold Custodiol cardioplegia delivered through a 14F catheter. The left atrium was opened and the mitral valve was exposed. The valve was analyzed and both leaflets were redundant with some prolapse. In order to increase the zone of coaptation, an annuloplasty was performed using a 30 [address] Zack Camden ring. This was performed using interrupted 4-0 Ticron horizontal mattress sutures. The repair was tested and found to be excellent. The left atrium was closed using running 4-0 Prolene suture. The patient systemically rewarmed and placed in Trendelenburg position. The cross clamp was removed, with the aorta and LV vented. The patient was easily weaned from cardiopulmonary bypass. Decannulation was carried out without incident and the artery was secured with the Perclose sutures. The vein was controlled with manual compression. Protamine was given. There was no adverse reaction. Intraoperative WENDI following the procedure showed a good repair with no MR or ALANNA. LV function was preserved. Wound was checked for hemostasis was obtained using electrocautery. A 32F right pleural chest tube was placed and secured to the skin with a 0 silk suture. The ribs were approximated using a 1 Vicryl suture. The subcutaneous tissue was closed using a running 3-0 Monocryl suture. The skin was closed with 4-0 Monocryl. Sterile dressings were placed. At the end of the operation, all sponge, instruments, and needle counts were correct. The patient was transferred to the CVICU in stable condition. The patient was noted to have a left pneumothorax and a 28F chest tube was placed percutaneously. Argentina Molina MD May 07, 2017 12:31
[2017-05-07] MEDS ORDERED: RESP: ALBUTEROL 2.5 MG/IPRATROPIUM 0.5 MG NEB (SCH) ONE (12:35)
[2017-05-07] MEDS: ACETAMINOPHEN 1000 MG/100 ML 100 ML IV SCH ×2 (13:46→18:18)
[2017-05-07] MEDS: POTASSIUM CHLOR 20 MEQ PREMIX 100 ML IV PRN ×2 (13:47→20:45)
--- NOTE | 2017-05-07 13:53 | RADRPT ---
EXAM DATE/TIME: 05/07/2017 13:23 [facility] COMPARISON: CHEST SINGLE AP, October 10, 2014, 14:06. INDICATIONS : Post stat CABG. MEDICAL HISTORY : Cardiovascular disease. Chronic obstructive pulmonary disease. Asthma. SURGICAL HISTORY : Cholecystectomy. ENCOUNTER: Subsequent ACUITY: 2 days PAIN SCORE: Non-responsive. LOCATION: Bilateral chest FINDINGS: The bilateral chest tubes and endotracheal tube are in good position. The heart is normal in size. Th e lungs demonstrate chronic interstitial changes but are otherwise clear. The bony structures are grossly intact. Note is made of an introducer sheath with interest of the head the left subclavian. The catheter is d irected cephalad into the left internal jugular. CONCLUSION: 1. The patient's left subclavian catheter is directed cephalad into the left internal jugular. 2. Bilateral chest tubes and endotracheal tube in good position. 3. Chronic interstitial changes within the pulmonary parenchyma Freddy Cox MD on May 07, 2017 at 13:51 Board Certified Radiologist. This report was verified electronically.
[2017-05-07] MEDS: RESP: ALBUTEROL 2.5 MG/IPRATROPIUM 0.5 MG NEB (PRN) NEB ×2 (14:59→21:02)
[2017-05-07] MEDS ORDERED: CALCIUM CHLORIDE INJ 1 GM in SODIUM CHLORIDE 0.9% INJ 100 ML IV ONE ×2 (16:00→22:00)
[2017-05-07] MEDS: DEXTROSE 50% IN WATER 50 ML VIAL(D50) IV PUSH PRN (20:45)
--- NOTE | 2017-05-07 21:55 | EKG ---
Date Performed: 05/07/2017 Time Performed: 06:30:25 PTAGE: 62 years EKG: Sinus rhythm WITH OCCASIONAL VENTRICULAR PREMATURE COMPLEXES MARKED LEFT AXIS DEVIATION MODERATE INTRAVENTRICULAR CONDUCTION DELAY ABNORMAL ECG Compared to the PREVIOUS TRACING NSVT no longer present DOCTOR: Evelyne Varghese Interpretating Date/Time 05/07/2017 21:54:41
[2017-05-07] MEDS ORDERED: MAGNESIUM SULFATE 2 GM/NS 100 ML IV ONE ×2 (22:00)
[2017-05-07] MEDS ORDERED: AMIODARONE 150 MG/D5W 97 ML BOLUS 10 MINUTES IV ONE ×2 (22:00)
[2017-05-08] VITALS (17 sets, daily range): BP systolic 106–131; BP diastolic 54–76; PULSE 86–110; RESP 16–22; TEMP 97.7–98.4; O2SAT 92–99
[2017-05-08] MEDS: ACETAMINOPHEN 1000 MG/100 ML 100 ML IV SCH ×2 (00:06→06:20)
[2017-05-08] MEDS: DEXTROSE 50% IN WATER 50 ML VIAL(D50) IV PUSH PRN (01:45)
[2017-05-08] MEDS: RESP: ALBUTEROL 2.5 MG/IPRATROPIUM 0.5 MG NEB (PRN) NEB ×2 (02:07→07:41)
[2017-05-08 03:24] LABS: HEMATOCRIT 27.9 % (35.0-46.0); MEAN CELL VOLUME 97.2 FL (80.0-100.0); MEAN CORPUSCULAR HEMOGLOBIN 33.3 PG (27.0-34.0); MEAN CORPUSCULAR HGB CONC 34.2 % (32.0-36.0); PLATELET COUNT 92 TH/MM3 (150-450); RED BLOOD COUNT 2.87 MIL/MM3 (4.00-5.30); RED CELL DISTRIBUTION WIDTH 12.9 % (11.6-17.2); WHITE BLOOD COUNT 11.6 TH/MM3 (4.0-11.0)
[2017-05-08 03:47] LABS: BICARBONATE 23.7 MEQ/L (21.0-32.0); MAGNESIUM 2.2 MG/DL (1.5-2.5); POTASSIUM 4.2 MEQ/L (3.5-5.1)
[2017-05-08 04:02] LABS: REVIEW FLAG FINAL
[2017-05-08] MEDS: predniSONE 10 MG TAB PO PRN ×3 (04:02→18:33)
--- NOTE | 2017-05-08 05:58 | RADRPT ---
EXAM DATE/TIME: 05/08/2017 04:47 [facility] COMPARISON: CHEST SINGLE AP, May 07, 2017, 13:23. INDICATIONS : Short of breath. MEDICAL HISTORY : Cardiovascular disease. Chronic obstructive pulmonary disease. Asthma. SURGICAL HISTORY : None. ENCOUNTER: Subsequent ACUITY: 1 week PAIN SCORE: 0/10 LOCATION: Bilateral chest FINDINGS: The cardiac silhouette is enlarged in transverse diameter. A right chest tube is in place. There is n o evidence of pneumothorax. Left chest tube is slightly kinked with a small left apical pneumothorax without tension. There is right lower lobe atelectasis versus pneumonia. This is new when compared wi th the prior exam. CONCLUSION: 1. Small left apical pneumothorax 2. New right basilar atelectasis versus pneumonia Timi Gonzalez MD on May 08, 2017 at 5:56 Board Certified Radiologist. This report was verified electronically.
[2017-05-08] MEDS: PANTOPRAZOLE SOD 40 MG DELAYED RELEASE TAB PO SCH (06:00)
[2017-05-08] MEDS ORDERED: SOD PHOSPHATE/SOD BIPHOSPHATE (ADULT) ENEMA 133ML RECTAL PRN (09:00)
[2017-05-08] MEDS ORDERED: BISACODYL 10 MG SUPP RECTAL PRN (09:00)
[2017-05-08] MEDS ORDERED: GLUCAGON 1 MG/ML VIAL OTHER PRN (09:00)
[2017-05-08] MEDS ORDERED: MULTIVITAMIN INJ 10 ML, THIAMINE INJ 500 MG, FOLIC ACID INJ 1 MG in SODIUM CHLORID 0.9%... IV SCH (09:00)
[2017-05-08] MEDS ORDERED: INSULIN DETEMIR 100 UNITS/ML VIAL SQ ONE (09:00)
[2017-05-08] MEDS: MAGNESIUM HYDROXIDE SUSP 30 ML CUP PO SCH (09:00)
[2017-05-08] MEDS ORDERED: DEXTROSE 50% IN WATER 50 ML VIAL(D50) IV PUSH PRN (09:00)
[2017-05-08] MEDS: ACETAMINOPHEN/HYDROcodone 325 MG/5 MG TAB PO PRN ×3 (09:08→20:22)
[2017-05-08] MEDS: TIOTROPIUM BROMIDE 18 MCG INH INH SCH (09:08)
[2017-05-08] MEDS: ASPIRIN 81 MG CHEW TAB PO SCH (09:08)
[2017-05-08] MEDS ORDERED: PILL SPLITTER OTHER PRN (09:30)
[2017-05-08] MEDS: MULTIVITAMINS/MINERALS THERAPEUTIC TAB PO SCH (10:27)
[2017-05-08] MEDS: METOPROLOL TARTRATE 25 MG TAB PO SCH ×2 (10:27→20:20)
[2017-05-08] MEDS ORDERED: POTASSIUM CHLOR 20 MEQ PREMIX 100 ML ONE (11:20)
[2017-05-08] MEDS: INSULIN ASPART SUPPLEMENTAL SCALE SQ SCH ×3 (13:36→21:42)
[2017-05-08] MEDS ORDERED: BENZOCAINE-MENTHOL (SUGAR FREE) 15 MG-3.6 MG LOZENGE BUCCAL PRN (15:30)
--- NOTE | 2017-05-08 17:51 | PD.CAR.PN ---
CVT Progress Note Subjective/Hospital Course: 62/ multi medical hx / hx of MVP severe MR elective surgery PMH: Vtach, esophageal strictures/ prior dilation , asthma, HLP, COPD anxiety , EF 57% surgery : Mini MVR 30 sequin ring/ WENDI intraop 05/07 extubated after surgery 05/08 c/o of difficulty swallowing , speech therapy consulted, requesting GI consult with Dr Huerta weaned off insulin gtt, pain controlled , add low dose xanax transfer to stepdown cxr small right apical PTX Objective: GENERAL: SKIN: Warm and dry. dressing D&I right upper chest wall, HEAD: Normocephalic. EYES: No scleral icterus. No injection or drainage. NECK: Supple, trachea midline. No JVD or lymphadenopathy. CARDIOVASCULAR: Regular rate and rhythm without murmurs, gallops, or rubs. RESPIRATORY: Breath sounds equal bilaterally. No accessory muscle use. right and left chest tube in place , right + 1 air leak GASTROINTESTINAL: Abdomen soft, non-tender, nondistended. MUSCULOSKELETAL: No cyanosis, or edema. BACK: Nontender without obvious deformity. No CVA tenderness. Vital Signs Date Time Temp Pulse Resp B/P (MAP) Pulse Ox O2 Delivery O2 Flow Rate FiO2 05/08/17 17:01 98 05/08/17 16:00 104 05/08/17 15:30 96 Nasal Cannula 4.00 05/08/17 15:30 97.7 97 20 125/76 (92) 96 05/08/17 15:01 102 05/08/17 14:00 110 05/08/17 13:00 102 05/08/17 11:01 92 Nasal Cannula 4.00 05/08/17 11:01 97.7 96 22 125/69 (87) 92 Arterial Line 05/08/17 07:41 94 Nasal Cannula 4.00 05/08/17 07:00 94 Nasal Cannula 4.00 05/08/17 07:00 96 05/08/17 07:00 97.9 100 16 122/74 (90) 97 123/65 (84) 05/08/17 06:50 16 05/08/17 04:00 98 Nasal Cannula 4.00 05/08/17 03:00 98.0 91 18 118/66 (83) 98 131/66 (87) 05/08/17 03:00 95 05/08/17 00:00 97 Nasal Cannula 4.00 05/08/17 00:00 18 05/07/17 23:00 91 05/07/17 23:00 97.8 91 18 136/72 (93) 97 05/07/17 21:55 99 Nasal Cannula 4.00 05/07/17 21:40 98 143/72 05/07/17 20:00 97 Nasal Cannula 4.00 05/07/17 19:00 97.6 102 18 113/64 (80) 96 05/07/17 19:00 102 05/07/17 19:00 18 Result Diagram: 05/08/17 0305 05/08/17 0305 Telemetry: NSR (1) COPD (chronic obstructive pulmonary disease) Plan: nebs, wean 02 as tolerated (2) Anxiety Plan: dd prn xanax (3) History of esophageal stricture Plan: consult GI, speech (4) Dysphagia (5) S/P MVR (mitral valve replacement) Plan: ASA, (6) Mitral regurgitation (7) Diastolic CHF due to valvular disease Tonya Jacobson May 08, 2017 17:51
[2017-05-08] MEDS: RESP: ALBUTEROL 2.5 MG/IPRATROPIUM 0.5 MG NEB (SCH) NEB (19:35)
--- NOTE | 2017-05-08 20:15 | EKG ---
Date Performed: 05/08/2017 Time Performed: 05:05:04 PTAGE: 62 years EKG: Sinus rhythm with PVC(s) Leftward axis Poor R wave progression - probable normal variant Low QRS voltages in prec ordial leads Since previous tracing 05/07/2017, QRS slightly narrower, otherwise no significant price e. Borderline ECG PREVIOUS TRACING : 05/07/2017 06.30 DOCTOR: Kam Vail Interpretating Date/Time 05/08/2017 20:14:35
[2017-05-08] MEDS: AMIODARONE 200 MG TAB PO SCH (20:22)
[2017-05-08] MEDS: DOCUSATE SODIUM 100 MG CAP PO SCH (21:00)
[2017-05-08] MEDS: SENNOSIDES 8.6 MG TAB PO SCH (21:00)
[2017-05-09] VITALS (29 sets, daily range): BP systolic 100–121; BP diastolic 56–58; PULSE 80–94; TEMP 98.2–99.2; O2SAT 97–99
--- NOTE | 2017-05-09 00:27 | PD.CONS ---
HPI History of Present Illness This is a 62 year old female who has undergone mitral valve repair complains of dysphagia this is an ongoing problem for her but appears to have slightly worsened she says she is not able to get anything down but talking to the nurse she is able to swallow her pills with apple sauce and she does need to have her pills crushed she has had dilations in the past but she tells me that her last gis specialist told her that she couldn't do anything for her and she was going to send her to [facility] in bed she had a complex situation but looking back at her earlier reports of endoscopy and at this hospital apparently she had a cervical lab and a Schatzki ring that were dilated in the past she denies any heartburn or reflux she is currently having some chest discomfort but no shortness of breath PFSH Past Medical History Esophageal strictures Mitral valve disease Past Surgical History Cholecystectomy Endoscopies Coded Allergies: ciprofloxacin (Unverified Allergy, Severe, Nausea/Vomiting, 05/07/17) hydromorphone (Unverified Allergy, Severe, Confusion, 03/06/17) latex (Unverified Allergy, Severe, Hives, 05/07/17) tramadol (Unverified Allergy, Severe, NAUSEA, 05/07/17) cefuroxime (Unverified Adverse Reaction, Unknown, PT STATES SHE IS NOT ALLERGIC TO THIS, 05/07/17) STATES SHE HAS NEVER HAD THIS MEDICATION ONLY ALLERGIC TO CIPRO AN ANTIBIOTIC Medications Current Medications Lactated Ringer's 1,000 ml @ 30 mls/hr Q24H PRN IV SEE LABEL COMMENTS Last administered on 05/07/17 06:12; Start 05/07/17 at 05:45; Stop 05/08/17 at 08 :57; Status DC Sodium Chloride 500 ml @ 30 mls/hr [id number] PRN IV SEE LABEL COMMENTS; Start at 05:45; Stop 05/10/17 at 05:44 Metoprolol Tartrate (Lopressor) 25 mg CAREER COORDINATOR PRN PO SEE LABEL COMMENTS; Start 05/07/17 at 05:45; Stop 05/08/17 at 08:57; Status DC Povidone Iodine (Betadine 5% Antisepsis Kit) 1 applic CAREER COORDINATOR PRN EACH NARE SEE LABEL COMMENTS Last administered on 05/07/17 06:20; Start 05/07/17 at 05: 45; Stop 05/08/17 at 08:57; Status DC Chlorhexidine Gluconate (Chlorhexidine 2% Cloth) 3 pack CAREER COORDINATOR PRN TOPICAL SEE LABEL COMMENTS Last administered on 05/07/17 05:40; Start 05/07/17 at 05: 45; Stop 05/08/17 at 08:57; Status DC Insulin Human Regular (NovoLIN R INJ) See Protocol Table ... CAREER COORDINATOR PRN SQ SEE PROTOCOL TABLE; Start 05/07/17 at 05:45; Stop 05/10/17 at 05:44 Cefazolin Sodium/ Dextrose 50 ml @ 150 mls/hr CAREER COORDINATOR IV Last administered on 05/07/17 08:40; Start 05/07/17 at 05:45; Stop 05/08/17 at 09:14; Status DC Metoprolol Tartrate (Lopressor) 12.5 mg CAREER COORDINATOR PO Last administered on 06:03; Start 05/07/17 at 05:45; Stop 05/08/17 at 08:57; Status DC Mupirocin (Bactroban 2% Oint) 1 applic BID EACH NARE ; Start 05/07/17 at 09:00 ; Stop 05/08/17 at 08:57; Status DC Chlorhexidine Gluconate (Hibiclens 4% Top Soln) 1 applic CAREER COORDINATOR TOPICAL ; Start 05/07/17 at 05:45; Stop 05/08/17 at 08:57; Status DC Insulin Human Regular 100 units/ Sodium Chloride 100 ml @ 3 mls/hr TITRATE PRN IV for blood glucose control; Start 05/07/17 at 05:45; Stop 05/08/17 at 08:57 ; Status DC Heparin Sodium (Porcine) (Heparin Inj) 40,000 units STK-MED ONCE .ROUTE Last administered on 05/07/17 06:33; Start 05/07/17 at 06:33; Stop 05/07/17 at 06 :34; Status DC Methylprednisolone Sodium Succinate (SoluMEDROL INJ) 125 mg STK-MED ONCE .ROUTE ; Start 05/07/17 at 06:34; Stop 05/07/17 at 06:35; Status DC Vancomycin HCl (Vancomycin Inj) 4,000 mg STK-MED ONCE .ROUTE ; Start 05/07/17 at 06:34; Stop 05/07/17 at 06:35; Status DC Cefazolin Sodium/ Dextrose 50 ml @ As Directed STK-MED ONCE .ROUTE ; Start at 06:34; Stop 05/07/17 at 06:35; Status DC Multi-Ingred Electrol/Mineral Irrig 2,000 ml @ As Directed STK-MED ONCE .ROUTE ; Start 05/07/17 at 07:18; Stop 05/07/17 at 07:19; Status DC Mannitol 100 ml @ As Directed STK-MED ONCE .ROUTE ; Start 05/07/17 at 07:18; Stop 05/07/17 at 07:19; Status DC Heparin Sodium (Porcine) (Heparin Inj) 20,000 units STK-MED ONCE .ROUTE ; Start 05/07/17 at 07:19; Stop 05/07/17 at 07:20; Status DC Potassium Chloride (KCl Inj) 2 meq STK-MED ONCE .ROUTE ; Start 05/07/17 at 07: 19; Stop 05/07/17 at 07:20; Status DC Sodium Bicarbonate 100 ml @ As Directed STK-MED ONCE .ROUTE ; Start 05/07/17 at 07:20; Stop 05/07/17 at 07:21; Status DC Bupivacaine HCl (Marcaine Pf 0.5% Inj) 30 ml STK-MED ONCE .ROUTE Last administered on 05/07/17t 10:46; Start 05/07/17 at 10:46; Stop 05/08/17 at 08 :57; Status DC Dexmedetomidine HCl (Precedex Inj) 200 mcg STK-MED ONCE .ROUTE ; Start at 10:53; Stop 05/08/17 at 08:57; Status DC Dexmedetomidine HCl 200 mcg/ Sodium Chloride 52 ml @ 2.73 mls/hr TITRATE PRN IV SEDATION; Start 05/07/17 at 12:15; Stop 05/08/17 at 08:57; Status DC Norepinephrine Bitartrate 250 ml @ 7.5 mls/hr UNSCH IV ; Start 05/07/17 at 12: 15; Stop 05/08/17 at 08:57; Status DC Clevidipine 50 ml @ 2 mls/hr TITRATE PRN IV Maintain BP < 140/90 mmHg; Start 05/07/17 at 12:15; Stop 05/08/17 at 08:57; Status DC Albumin Human 250 ml @ 250 mls/hr UNSCH PRN IV SEE LABEL COMMENTS; Start at 12:15; Stop 05/08/17 at 08:57; Status DC Lactated Ringer's 500 ml @ 500 mls/hr Q1H PRN IV SEE LABEL COMMENTS; Start at 12:09; Stop 05/08/17 at 08:57; Status DC Miscellaneous Information (Post-op Orders (for Pharmacy)) STAT ONCE OTHER ; Start 05/07/17 at 12:15; Stop 05/07/17 at 13:52; Status DC Cefazolin Sodium 1000 mg/Sodium Chloride 100 ml @ 200 mls/hr Q8H IV Last administered on 05/08/17 17:00; Start 05/07/17 at 17:00; Stop 05/09/17 at 01 :29 Aspirin (Aspirin Chew) 81 mg DAILY PO Last administered on 05/08/17 09:08; Start 05/08/17 at 09:00 Pantoprazole Sodium (Protonix) 40 mg DAILY@06 PO Last administered on 06:00; Start 05/08/17 at 06:00 Multivitamins 10 ml/Thiamine HCl 500 mg/Folic Acid 1 mg/Sodium Chloride 515.2 ml @ 21 mls/hr DAILY IV ; Start 05/08/17 at 09:00; Stop 05/08/17 at 09:00; Status DC Acetaminophen (Tylenol) 650 mg Q4H PRN PO TEMPERATURE > 101 F; Start 05/07/17 at 12:15 Acetaminophen (Tylenol Supp) 650 mg Q4H PRN RECTAL TEMPERATURE > 101 F; Start 05/07/17 at 12:15 Acetaminophen 100 ml @ 400 mls/hr Q6H IV Last administered on 05/08/17 06:20 ; Start 05/07/17 at 13:00; Stop 05/08/17 at 07:14; Status DC Fentanyl Citrate (fentaNYL INJ) 25 mcg Q1H PRN IV PUSH BREAKTHROUGH PAIN Last administered on 05/07/17 18:18; Start 05/07/17 at 12:15; Stop 05/07/17 at 19 :31; Status DC Ondansetron HCl (Zofran Inj) 4 mg Q6H PRN IV PUSH NAUSEA OR VOMITING Last administered on 05/07/17 19:51; Start 05/07/17 at 12:15 Hydralazine HCl (Apresoline Inj) 10 mg Q4H PRN IV PUSH SEE LABEL COMMENTS; Start 05/07/17 at 12:15 Metoprolol Tartrate (Lopressor Inj) 2.5 mg Q1H PRN IV PUSH SEE LABEL COMMENTS; Start 05/07/17 at 12:15; Stop 05/08/17 at 08:57; Status DC Potassium Chloride 100 ml @ 50 mls/hr UNSCH PRN IV SEE LABEL COMMENTS; Start 05/07/17 at 12:15; Stop 05/08/17 at 08:57; Status DC Potassium Chloride 100 ml @ 50 mls/hr UNSCH PRN IV SEE LABEL COMMENTS Last administered on 05/07/17 20:45; Start 05/07/17 at 12:15; Stop 05/07/17 at 20 :46; Status DC Potassium Chloride 100 ml @ 50 mls/hr UNSCH PRN IV SEE LABEL COMMENTS; Start 05/07/17 at 12:15; Stop 05/08/17 at 08:57; Status DC Potassium Chloride (KCl) 20 meq UNSCH PRN PO SEE LABEL COMMENTS; Start at 12:15; Stop 05/08/17 at 08:57; Status DC Potassium Chloride (KCl) 40 meq UNSCH PRN PO SEE LABEL COMMENTS; Start at 12:15; Stop 05/08/17 at 08:57; Status DC Magnesium Sulfate 2 gm/Sodium Chloride 104 ml @ 100 mls/hr UNSCH PRN IV SEE LABEL COMMENTS; Start 05/07/17 at 12:15 Magnesium Sulfate 2 gm/Sodium Chloride 104 ml @ 50 mls/hr UNSCH PRN IV SEE LABEL COMMENTS; Start 05/07/17 at 12:15 Calcium Chloride 1 gm/Sodium Chloride 110 ml @ 100 mls/hr UNSCH PRN IV SEE LABEL COMMENTS Last administered on 05/07/17 13:47; Start 05/07/17 at 12:15; Stop 05/07/17 at 13:48; Status DC Calcium Chloride (Calcium Chloride Inj) 0.5 gm UNSCH PRN IV PUSH SEE LABEL COMMENTS; Start 05/07/17 at 12:15; Stop 05/08/17 at 08:57; Status DC Insulin Human Regular 100 units/ Sodium Chloride 100 ml @ 3 mls/hr TITRATE PRN IV for blood glucose control; Start 05/07/17 at 12:15; Stop 05/08/17 at 12:00 ; Status DC Dextrose (D50w (Vial) Inj) 50 ml UNSCH PRN IV PUSH HYPOGLYCEMIA-SEE COMMENTS Last administered on 05/08/17 01:45; Start 05/07/17 at 12:15; Stop 05/08/17 at 09:14; Status DC Sodium Bicarbonate (Sodium Bicarbonate 8.4% Inj) 50 meq UNSCH PRN IV PUSH SEE LABEL COMMENTS; Start 05/07/17 at 12:15; Stop 05/08/17 at 08:57; Status DC Sodium Bicarbonate (Sodium Bicarbonate 8.4% Inj) 100 meq UNSCH PRN IV PUSH SEE LABEL COMMENTS; Start 05/07/17 at 12:15; Stop 05/08/17 at 08:57; Status DC Albuterol/ Ipratropium (Duoneb Neb) 1 ampule Q2HR NEB PRN NEB WHEEZING Last administered on 05/08/17 07:41; Start 05/07/17 at 12:15 Racepinephrine (Racepinephrine 2.25% Neb) 0.5 ml UNSCH X1 PRN NEB STRIDOR; Start 05/07/17 at 12:15; Stop 05/08/17 at 08:57; Status DC Acetaminophen/ Hydrocodone Bitart ([place] 5-325 Mg) 1 tab Q4H PRN PO PAIN 1-10 Last administered on 05/08/17 20:22; Start 05/07/17 at 12:15 Tiotropium [place] (Spiriva Inh) 18 mcg DAILY INH Last administered on 09:08; Start 05/08/17 at 09:00 Lorazepam (Ativan) 1 mg HS PRN PO ANXIETY AND/OR AGITATION Last administered on 05/08/17 03:55; Start 05/07/17 at 12:15; Stop 05/08/17 at 08:57; Status DC Prednisone (Deltasone) 10 mg DAILY PRN PO WHEEZING Last administered on 18:33; Start 05/07/17 at 12:15 Zolpidem Tartrate (Ambien) 5 mg HS PRN PO INSOMNIA; Start 05/07/17 at 21:00 Albuterol/ Ipratropium (Duoneb Neb) 2 ampule STK-MED ONCE .ROUTE ; Start at 12:35; Stop 05/07/17 at 12:36; Status DC Calcium Chloride 1 gm/Sodium Chloride 110 ml @ 110 mls/hr NOW ONCE IV Last administered on 05/07/17 16:00; Start 05/07/17 at 16:00; Stop 05/08/17 at 08 :57; Status DC Fentanyl Citrate (fentaNYL INJ) 50 mcg Q1H PRN IV PUSH BREAKTHROUGH PAIN Last administered on 05/08/17 04:58; Start 05/07/17 at 19:45; Stop 05/08/17 at 08 :57; Status DC Magnesium Sulfate 2 gm/Sodium Chloride 104 ml @ 52 mls/hr ONCE ONCE IV Last administered on 05/07/17 21:41; Start 05/07/17 at 22:00; Stop 05/07/17 at 23 :59; Status DC Amiodarone HCl 150 mg/Dextrose 100 ml @ 600 mls/hr NOW ONCE IV Last administered on 05/07/17 21:40; Start 05/07/17 at 22:00; Stop 05/07/17 at 22 :09; Status DC Calcium Chloride 1 gm/Sodium Chloride 110 ml @ 110 mls/hr ONCE ONCE IV Last administered on 05/07/17 21:41; Start 05/07/17 at 22:00; Stop 05/08/17 at 08 :57; Status DC Albuterol/ Ipratropium (Duoneb Neb) 1 ampule Q6HR WHILE AWAKE NEB NEB Last administered on 05/08/17 19:35; Start 05/08/17 at 14:00; Stop 05/10/17 at 13 :59 Docusate Sodium (Colace) 100 mg BID PO ; Start 05/08/17 at 21:00 Multivitamins/ Minerals Therapeutic (Theragran M Tab) 1 tab DAILY PO Last administered on 05/08/17 10:27; Start 05/08/17 at 09:00 Magnesium Hydroxide (Milk Of Magnesia Liq) 30 ml DAILY PO ; Start 05/08/17 at 09:00 Bisacodyl (Dulcolax Supp) 10 mg UNSCH PRN RECTAL SEE LABEL COMMENTS; Start at 09:00 Polyethylene Glycol (Miralax) 17 gm DAILY PO ; Start 05/09/17 at 09:00 Sennosides (Senokot) 8.6 mg HS PO ; Start 05/08/17 at 21:00 Sodium Biphosphate/ Sodium Phosphate (Fleets Enema (Adult)) 133 ml UNSCH PRN RECTAL SEE LABEL COMMENTS; Start 05/08/17 at 09:00 Metoprolol Tartrate (Lopressor) 12.5 mg BID PO Last administered on 05/08/17 20:20; Start 05/08/17 at 09:00 Insulin Detemir (Levemir Inj) 5 units ONCE ONCE SQ Last administered on 10:27; Start 05/08/17 at 09:00; Stop 05/08/17 at 09:12; Status DC Insulin Aspart (NovoLOG SUPPLEMENTAL SCALE) 1 02,06,10,14,18,22 SQ ; Start at 14:00; Stop 05/09/17 at 10:01 Dextrose (D50w (Vial) Inj) 50 ml UNSCH PRN IV PUSH HYPOGLYCEMIA-SEE COMMENTS; Start 05/08/17 at 09:00 Glucagon (Glucagon Inj) 1 mg UNSCH PRN OTHER HYPOGLYCEMIA-SEE COMMENTS; Start 05/08/17 at 09:00 Amiodarone HCl (Cordarone) 200 mg Q12HR PO Last administered on 05/08/17 20: 22; Start 05/08/17 at 09:15 Insulin Aspart (NovoLOG SUPPLEMENTAL SCALE) 1 02,06,10,14,18,22 SQ ; Start at 14:00 Miscellaneous (Pill Splitter) 1 ea UNSCH PRN OTHER SEE LABEL COMMENTS; Start 05/08/17 at 09:30 Potassium Chloride 100 ml @ As Directed STK-MED ONCE .ROUTE ; Start 05/08/17 at 11:20; Stop 05/08/17 at 11:21; Status DC Fentanyl Citrate (fentaNYL INJ) 50 mcg Q1H PRN IV PUSH BREAKTHROUGH PAIN Last administered on 05/08/17 21:53; Start 05/08/17 at 12:30 Benzocaine/Menthol (Cepacol Extra Arlette (Sugar Free)) 1 lozenge Q2HR PRN BUCCAL SORE THROAT ; Start 05/08/17 at 15:30 Family History Noncontributory Review of Systems ROS Review of systems Patient denies any headache dizziness blurry vision, denies any chest pain shortness of breath cough fever chills, Denies any palpitations or fatigue denies any polyuria dysuria hematuria, denies any numbness tingling or weakness, denies any skin rash pruritus or jaundice, denies any easy bruising or bleeding tendency, denies any recent change in mood GI Exam Vitals I&O Vital Signs Date Time Temp Pulse Resp B/P (MAP) Pulse Ox O2 Delivery O2 Flow Rate FiO2 05/08/17 19:35 96 Nasal Cannula 5.00 05/08/17 18:19 Nasal Cannula 5.00 05/08/17 18:01 101 05/08/17 17:01 98 05/08/17 16:00 104 05/08/17 15:30 96 Nasal Cannula 4.00 05/08/17 15:30 97.7 97 20 125/76 (92) 96 05/08/17 15:01 102 05/08/17 14:00 110 05/08/17 13:00 102 05/08/17 11:01 92 Nasal Cannula 4.00 05/08/17 11:01 97.7 96 22 125/69 (87) 92 Arterial Line 05/08/17 07:41 94 Nasal Cannula 4.00 05/08/17 07:00 94 Nasal Cannula 4.00 05/08/17 07:00 96 05/08/17 07:00 97.9 100 16 122/74 (90) 97 123/65 (84) 05/08/17 06:50 16 05/08/17 04:00 98 Nasal Cannula 4.00 05/08/17 03:00 98.0 91 18 118/66 (83) 98 131/66 (87) 05/08/17 03:00 95 I/O 05/08/17 05/08/17 05/08/17 05/09/17 05/09/17 05/09/17 07:00 15:00 23:00 07:00 15:00 23:00 Intake Total 800 ml 240 ml Output Total 1230 ml 575 ml Balance -430 ml -335 ml Intake Oral 200 ml 240 ml IV Total 600 ml Output Urine Total 1100 ml 300 ml Chest Tube Drainage Total 130 ml 275 ml # Voids 2 # Bowel Movements 0 2 Imaging Last Impressions Chest X-Ray 10/17/17 0500 Signed Impressions: Service Date/Time: Monday, May 08, 2017 04:47 - CONCLUSION: 1. Small left apical pneumothorax 2. New right basilar atelectasis versus pneumonia Timi Gonzalez MD Laboratory Test 05/08/17 03:05 White Blood Count 11.6 TH/MM3 Red Blood Count 2.87 MIL/MM3 Hemoglobin 9.5 GM/DL Hematocrit 27.9 % Mean Corpuscular Volume 97.2 FL Mean Corpuscular Hemoglobin 33.3 PG Mean Corpuscular Hemoglobin Concent 34.2 % Red Cell Distribution Width 12.9 % Platelet Count 92 TH/MM3 Mean Platelet Volume 7.8 FL Blood Urea Nitrogen 11 MG/DL Creatinine 0.42 MG/DL Random Glucose 133 MG/DL Calcium Level 8.2 MG/DL Magnesium Level 2.2 MG/DL Sodium Level 142 MEQ/L Potassium Level 4.2 MEQ/L Chloride Level 110 MEQ/L Carbon Dioxide Level 23.7 MEQ/L Anion Gap 8 MEQ/L Estimat Glomerular Filtration Rate 152 ML/MIN Physical Examination HEENT: Pupils round and reactive to light; normocephalic; atraumatic; no jaundice. Throat is clear. NECK: Neck is supple, no JVD, no lymphadenopathy. CHEST: Chest is clear to auscultation and percussion. CARDIAC: Regular rate and rhythm with no murmur gallop or rubs. ABDOMEN: Soft, nondistended, nontender; no hepatosplenomegaly; bowel sounds are present in all four quadrants. EXTREMITIES: No clubbing, cyanosis, or edema. SKIN: Normal; no rash; no jaundice. INSURANCE CLAIMS REPRESENTATIVE: No focal deficits; alert and oriented times three. Assessment and Plan Plan Dysphagia History of a cervical web and Schatzki ring At this point the patient states that she can't do the barium swallow she's not able to swallow anything and she wants to hold off on any endoscopy or possible dilation Continue with precautionary measures by crushing her pills and proceeding with pured diet Our best advice would be to proceed with an upper endoscopy and possible dilation we will readdress this issue with the patient tomorrow Savage Luciano MD May 09, 2017 00:27
[2017-05-09] MEDS: ZOLPIDEM TARTRATE 5 MG TAB PO PRN ×2 (00:35→23:14)
[2017-05-09] MEDS: INSULIN ASPART SUPPLEMENTAL SCALE SQ SCH ×6 (02:00→21:00)
[2017-05-09] MEDS: PANTOPRAZOLE SOD 40 MG DELAYED RELEASE TAB PO SCH (05:17)
[2017-05-09] MEDS: ACETAMINOPHEN/HYDROcodone 325 MG/5 MG TAB PO PRN ×4 (05:17→21:29)
[2017-05-09 06:06] LABS: AUTOMATED NEUTROPHIL # 9.5 TH/MM3 (1.8-7.7); BASOPHIL % 0.1 % (0.0-2.0); HEMATOCRIT 23.2 % (35.0-46.0); LYMPH % 9.5 % (9.0-44.0); LYMPHOCYTE # 1.1 TH/MM3 (1.0-4.8); MEAN CELL VOLUME 98.6 FL (80.0-100.0); MEAN CORPUSCULAR HGB CONC 33.5 % (32.0-36.0); MONO % 5.6 % (0.0-8.0); NEUT % 84.8 % (16.0-70.0); PLATELET COUNT 63 TH/MM3 (150-450); RED BLOOD COUNT 2.36 MIL/MM3 (4.00-5.30); RED CELL DISTRIBUTION WIDTH 13.1 % (11.6-17.2); WHITE BLOOD COUNT 11.2 TH/MM3 (4.0-11.0)
[2017-05-09 06:11] LABS: HEMO FLAGS AUTO DIFF
[2017-05-09 06:34] LABS: BICARBONATE 28.5 MEQ/L (21.0-32.0); MAGNESIUM 2.1 MG/DL (1.5-2.5)
[2017-05-09 07:42] LABS: PLATELET ESTIMATE SMEAR LOW (NORMAL); PLATELET MORPHOLOGY NORMAL (NORMAL)
[2017-05-09 07:43] LABS: SCAN/DIFF AUTO DIFF CONFIRMED
[2017-05-09] MEDS: RESP: ALBUTEROL 2.5 MG/IPRATROPIUM 0.5 MG NEB (SCH) NEB ×3 (08:07→20:40)
[2017-05-09] MEDS: TIOTROPIUM BROMIDE 18 MCG INH INH SCH (08:30)
[2017-05-09] MEDS: MULTIVITAMINS/MINERALS THERAPEUTIC TAB PO SCH (08:34)
[2017-05-09] MEDS: DOCUSATE SODIUM 100 MG CAP PO SCH ×2 (08:35→21:00)
[2017-05-09] MEDS: ASPIRIN 81 MG CHEW TAB PO SCH (08:35)
[2017-05-09] MEDS: AMIODARONE 200 MG TAB PO SCH ×2 (08:36→21:29)
[2017-05-09] MEDS: POLYETHYLENE GLYCOL 17 GM PKG PO SCH (08:36)
[2017-05-09] MEDS: METOPROLOL TARTRATE 25 MG TAB PO SCH ×2 (08:36→21:29)
[2017-05-09] MEDS: MAGNESIUM HYDROXIDE SUSP 30 ML CUP PO SCH (08:36)
--- NOTE | 2017-05-09 11:37 | RADRPT ---
EXAM DATE/TIME: 05/09/2017 10:43 [facility] COMPARISON: CHEST SINGLE AP, May 08, 2017, 4:47. INDICATIONS : Evaluate pneumothorax. Patient complains of chest pain. MEDICAL HISTORY : Cardiovascular disease. Chronic obstructive pulmonary disease. Asthma SURGICAL HISTORY : Cholecystectomy. Right shoulder. ENCOUNTER: Subsequent ACUITY: 3 days PAIN SCORE: 10/10 LOCATION: Bilateral chest FINDINGS: Right chest tube in good position with the 1.6 cm right pneumothorax. Left chest tube in good positi on. Heart is minimally enlarged. Bilateral parenchymal changes are slowly resolving. CONCLUSION: 1.6 there are left pneumothorax with chest tube in good position. Bairon Cox MD FACR on May 09, 2017 at 11:35 Board Certified Radiologist. This report was verified electronically.
--- NOTE | 2017-05-09 14:04 | HHI.GIFU ---
Subjective Remarks States she is still having difficulty swallowing, but takes soups, applesauce, and ice. Does not want EGD with dilatation until after her current issues resolve. (So Lozano) Objective Vitals I&O Vital Signs Date Time Temp Pulse Resp B/P (MAP) Pulse Ox O2 Delivery O2 Flow Rate FiO2 05/09/17 13:00 84 05/09/17 12:00 86 05/09/17 11:48 98.8 80 102/56 (71) 99 05/09/17 11:46 96 Nasal Cannula 5.00 05/09/17 11:00 82 05/09/17 10:00 88 05/09/17 09:00 84 05/09/17 08:11 97 Nasal Cannula 5.00 05/09/17 08:00 99.2 84 105/57 (73) 99 05/09/17 08:00 85 05/09/17 07:52 96 Nasal Cannula 5.00 05/09/17 07:00 82 05/09/17 06:06 85 05/09/17 05:00 90 05/09/17 04:27 90 05/09/17 04:14 98.6 80 100/56 (71) 99 05/09/17 04:14 Nasal Cannula 5.00 60 05/09/17 03:00 80 05/09/17 02:00 86 05/09/17 01:00 94 05/09/17 00:00 84 05/08/17 23:00 Nasal Cannula 4.00 05/08/17 23:00 103 05/08/17 23:00 98.3 86 107/58 (74) 99 05/08/17 22:00 90 05/08/17 21:00 92 05/08/17 20:00 98.4 86 106/54 (71) 99 05/08/17 20:00 103 05/08/17 20:00 Nasal Cannula 4.00 05/08/17 19:35 96 Nasal Cannula 5.00 05/08/17 19:00 103 05/08/17 18:19 Nasal Cannula 5.00 05/08/17 18:01 101 05/08/17 17:01 98 05/08/17 16:00 104 05/08/17 15:30 96 Nasal Cannula 4.00 05/08/17 15:30 97.7 97 20 125/76 (92) 96 05/08/17 15:01 102 05/08/17 14:00 110 I/O 05/08/17 05/08/17 05/08/17 05/09/17 05/09/17 05/09/17 06:59 14:59 22:59 06:59 14:59 22:59 Intake Total 800 ml 240 ml 340 ml 100 ml Output Total 1230 ml 575 ml 170 ml Balance -430 ml -335 ml 170 ml 100 ml Intake Oral 200 ml 240 ml 240 ml IV Total 600 ml 100 ml 100 ml Output Urine Total 1100 ml 300 ml Chest Tube Drainage Total 130 ml 275 ml 170 ml # Voids 2 2 # Bowel Movements 0 2 2 Laboratory Laboratory Tests Test 05/09/17 05:51 White Blood Count 11.2 Red Blood Count 2.36 Hemoglobin 7.8 Hematocrit 23.2 Mean Corpuscular Volume 98.6 Mean Corpuscular Hemoglobin 33.0 Mean Corpuscular Hemoglobin Concent 33.5 Red Cell Distribution Width 13.1 Platelet Count 63 Mean Platelet Volume 8.6 Neutrophils (%) (Auto) 84.8 Lymphocytes (%) (Auto) 9.5 Monocytes (%) (Auto) 5.6 Eosinophils (%) (Auto) 0.0 Basophils (%) (Auto) 0.1 Neutrophils # (Auto) 9.5 Lymphocytes # (Auto) 1.1 Monocytes # (Auto) 0.6 Eosinophils # (Auto) 0.0 Basophils # (Auto) 0.0 CBC Comment AUTO DIFF Differential Comment AUTO DIFF CONFIRMED Platelet Estimate LOW Platelet Morphology Comment NORMAL Basophilic Stippling FAINT Blood Urea Nitrogen 12 Creatinine 0.43 Random Glucose 129 Calcium Level 8.3 Magnesium Level 2.1 Sodium Level 143 Potassium Level 4.0 Chloride Level 108 Carbon Dioxide Level 28.5 Anion Gap 7 Estimat Glomerular Filtration Rate 148 Imaging Last Impressions Chest X-Ray 05/09/17 0000 Signed Impressions: Service Date/Time: Tuesday, May 09, 2017 10:43 - CONCLUSION: 1.6 there are left pneumothorax with chest tube in good position. Bairon Cox MD FACR Physical Exam HEENT: Normocephalic; atraumatic; no jaundice. CHEST: Resp. shallow/even. CT CARDIAC: RRR ABDOMEN: Soft, nondistended, nontender; no hepatosplenomegaly; bowel sounds are present in all four quadrants. EXTREMITIES: No clubbing, cyanosis, or edema. MANAGER MEETING: No focal deficits; lethargic and oriented times three. (So Lozano) Assessment and Plan Plan ASSESSMENT: - Dysphagia with hx of cervical web and Schatzki ring. She states she is taking liquids/apple sauce/ice chips. D/W patient possible EGD with dilatation, but she is wanting to hold off any endoscopic procedures until her current issues resolve. Recommend precautionary measures by crushing her pills and proceeding with pured diet. - Hx MVP with severe MR/. S/P Mitral Valve replacement per CVT. PLAN: - Puree diet - Crush pills and place in apple sauce - Recommend EGD with possible dilatation, patient is wanting to wait until she recovers from MVR surgery - Supportive care - Further recommendations to follow based on results of above - Pt seen and examined by Dr. Luciano and myself and this note is written on his behalf (So Lozano) Physician Comments Patient seen and examined Agree with above Continue with current supportive care Monitor labs Can also consider barium swallow We will defer to attending physician At this point not much to add from a GI perspective we will sign off (Savage Luciano MD) So Lozano May 09, 2017 14:04 Savage Luciano MD May 09, 2017 17:39
--- NOTE | 2017-05-09 17:32 | PD.CAR.PN ---
CVT Progress Note Subjective/Hospital Course: 62/ multi medical hx / hx of MVP severe MR elective surgery PMH: Vtach, esophageal strictures/ prior dilation , asthma, HLP, COPD anxiety , EF 57% surgery : Mini MVR 30 sequin ring/ WENDI intraop 05/07 extubated after surgery 05/08 c/o of difficulty swallowing , speech therapy consulted, requesting GI consult with Dr Huerta weaned off insulin gtt, pain controlled , add low dose xanax transfer to stepdown cxr small right apical PTX 05/09 small bilat PTX, leave chest tubes in to suction dysphagia improved pain controlled pulm toileting OOB/ ambulate Objective: GENERAL: SKIN: Warm and dry. dressing right upper chest wall / HEAD: Normocephalic. EYES: No scleral icterus. No injection or drainage. NECK: Supple, trachea midline. No JVD or lymphadenopathy. CARDIOVASCULAR: Regular rate and rhythm without murmurs, gallops, or rubs. RESPIRATORY: Breath sounds equal bilaterally. No accessory muscle use. R&L chest tube no air leak left drained 50cc/ 12 hrs , right drained 225cc/ 12hrs GASTROINTESTINAL: Abdomen soft, non-tender, nondistended. MUSCULOSKELETAL: No cyanosis, or edema. BACK: Nontender without obvious deformity. No CVA tenderness. Vital Signs Date Time Temp Pulse Resp B/P (MAP) Pulse Ox O2 Delivery O2 Flow Rate FiO2 05/09/17 16:00 95 Nasal Cannula 5.00 05/09/17 16:00 98.5 80 104/58 (73) 97 05/09/17 16:00 85 05/09/17 15:00 87 05/09/17 14:00 88 05/09/17 13:00 84 05/09/17 12:00 86 05/09/17 11:48 98.8 80 102/56 (71) 99 05/09/17 11:46 96 Nasal Cannula 5.00 05/09/17 11:00 82 05/09/17 10:54 18 05/09/17 10:00 88 05/09/17 09:34 20 05/09/17 09:00 84 05/09/17 08:11 97 Nasal Cannula 5.00 05/09/17 08:00 99.2 84 105/57 (73) 99 05/09/17 08:00 85 05/09/17 07:52 96 Nasal Cannula 5.00 05/09/17 07:00 82 05/09/17 06:06 85 05/09/17 05:00 90 05/09/17 04:27 90 05/09/17 04:14 98.6 80 100/56 (71) 99 05/09/17 04:14 Nasal Cannula 5.00 60 05/09/17 03:00 80 05/09/17 02:00 86 05/09/17 01:00 94 05/09/17 00:00 84 05/08/17 23:00 Nasal Cannula 4.00 05/08/17 23:00 103 05/08/17 23:00 98.3 86 107/58 (74) 99 05/08/17 22:00 90 05/08/17 21:00 92 05/08/17 20:00 98.4 86 106/54 (71) 99 05/08/17 20:00 103 05/08/17 20:00 Nasal Cannula 4.00 05/08/17 19:35 96 Nasal Cannula 5.00 05/08/17 19:00 103 05/08/17 18:19 Nasal Cannula 5.00 05/08/17 18:01 101 Labs: Laboratory Tests Test 05/09/17 05:51 White Blood Count 11.2 TH/MM3 (4.0-11.0) Red Blood Count 2.36 MIL/MM3 (4.00-5.30) Hemoglobin 7.8 GM/DL (11.6-15.3) Hematocrit 23.2 % (35.0-46.0) Mean Corpuscular Volume 98.6 FL (80.0-100.0) Mean Corpuscular Hemoglobin 33.0 PG (27.0-34.0) Mean Corpuscular Hemoglobin Concent 33.5 % (32.0-36.0) Red Cell Distribution Width 13.1 % (11.6-17.2) Platelet Count 63 TH/MM3 (150-450) Mean Platelet Volume 8.6 FL (7.0-11.0) Neutrophils (%) (Auto) 84.8 % (16.0-70.0) Lymphocytes (%) (Auto) 9.5 % (9.0-44.0) Monocytes (%) (Auto) 5.6 % (0.0-8.0) Eosinophils (%) (Auto) 0.0 % (0.0-4.0) Basophils (%) (Auto) 0.1 % (0.0-2.0) Neutrophils # (Auto) 9.5 TH/MM3 (1.8-7.7) Lymphocytes # (Auto) 1.1 TH/MM3 (1.0-4.8) Monocytes # (Auto) 0.6 TH/MM3 (0-0.9) Eosinophils # (Auto) 0.0 TH/MM3 (0-0.4) Basophils # (Auto) 0.0 TH/MM3 (0-0.2) CBC Comment AUTO DIFF Differential Comment AUTO DIFF CONFIRMED Platelet Estimate LOW (NORMAL) Platelet Morphology Comment NORMAL (NORMAL) Basophilic Stippling FAINT (NORMAL) Blood Urea Nitrogen 12 MG/DL (7-18) Creatinine 0.43 MG/DL (0.50-1.00) Random Glucose 129 MG/DL (74-106) Calcium Level 8.3 MG/DL (8.5-10.1) Magnesium Level 2.1 MG/DL (1.5-2.5) Sodium Level 143 MEQ/L (136-145) Potassium Level 4.0 MEQ/L (3.5-5.1) Chloride Level 108 MEQ/L (98-107) Carbon Dioxide Level 28.5 MEQ/L (21.0-32.0) Anion Gap 7 MEQ/L (5-15) Estimat Glomerular Filtration Rate 148 ML/MIN (>89) Result Diagram: 05/09/17 0551 05/09/17 0551 (1) COPD (chronic obstructive pulmonary disease) Plan: nebs, wean 02 as tolerated (2) Anxiety Plan: dd prn xanax (3) History of esophageal stricture Plan: consult GI, speech (4) Dysphagia Plan: mechanical soft diet appreciate GI input (5) S/P MVR (mitral valve replacement) Plan: ASA, amiodarone pulm toileting OOB ambulate leave chest tubes in (6) Mitral regurgitation (7) Diastolic CHF due to valvular disease Tonya Jacobson May 09, 2017 17:32
--- NOTE | 2017-05-09 17:35 | HHI.FF ---
Face to Face Verification Diagnosis: (1) Mitral regurgitation (2) Diastolic CHF due to valvular disease (3) COPD (chronic obstructive pulmonary disease) (4) Anxiety (5) Dysphagia (6) History of esophageal stricture (7) S/P MVR (mitral valve replacement) Physical Therapy Order: Evaluate and Treat Home Health Nursing Order: Signs/symptoms of disease process Medication education-adverse effect Wound care and dressing changes Nursing assessment with vital signs Instructions: Heart and Vascular Surgery patients *Special attention to sternal dressing Mandatory frequency Assess and evaluation, 4 days in a row The next week 3X week 2 times a week for 4 weeks 1 time a week for 5 weeks Schedule Heart and Vascular patients for full 60 day certification period Initial visit Review Open Heart Surgery Discharge Instructions (Sternal precautions, Activity, Elastic hose, Incision care, Driving, Incentive spirometry, Smoking, Crane, Work and other) Need Betadine to paint incision Medication reconciliation Importance of follow up care/ check on appointments Make calendar record temperature daily When to call [facility] at Home nurse, review instructions, phone list Incentive Spirometry, demonstration Visit 1- Begin discharge instruction for patient family and/ or caregiver using teach back method- Signs and symptoms of infection Disease characteristics Medicines and side effects Foods and nutrition/ appetite Infection control/ hand washing/ hygiene Visit 2- Continue teaching Discharge instructions- include additional information on smoking cessation , sternal dressing (sternal vac) Visit 3- Continue teaching- Cough and deep breathing, incision monitoring. Choose my plate Visit 4- Continue teaching- Discuss limitations Discuss how they are feeling Discuss progress toward goals Remaining visits- continue teaching and monitoring Incentive spirometry Q1 hr x 10, while awake, also use acapella device hourly whole awake Sternal Breast Bone Precautions: NO pushing or pulling, ( pt must use sternal pillow to support chest with all activities and with coughing ( takes up to 3 months breast bone to heal ) All females to wear sternal bra , launder as needed Daily incision care: ok to shower daily, no tub bath. Wash all incisions with liquid dial soap, clean wash cloth to each site, rinse and pat dry. Observe for any signs of infection, such as drainage which is dark yellow, smith, green or foul smelling. Immediately report to the surgeon any drainage from the chest incision, or legs, and for any abnormal drainage from the chest tube sites. Notify surgeon if any temp >101.5 degrees F. When specialty dressing removed/ or if you do not have one, continue to shower daily as above, then rinse and pat incision dry and paint with betadine daily x 5 days. Allow steri strips to fall off if you have any. Avoid lotions, creams, salves, oils, etc. for the first month For Dr. Molina patients , please obtain CBC, BMP, PA & Lat CXR in 2 weeks, results to Dr. Mloina ( prescription will be given) ( ) (Tele: [phone]) , Valve replacement pts will need 2decho in 2 weeks with results to Dr. Molina . Please obtain 2 d echo at your highway engineering technician office if possible F/U appointment: as per DC instructions: PCP in 2 weeks, CV surgeon 2 weeks, Starch Crab 3-4 weeks For any questions regarding incisions/ dressing / meds / post op care or above Symptoms, Sunday 8am-5pm Heart & Vascular Surgery Office ( Dr. Fletcher & Dr. Molina), After Hours / Nights (5pm -8am) Weekends and Holidays Please call [facility] ([facility]) Charge Nurse I have seen patient Valentine Adamson on 05/09/17. My clinical findings support the need for the requested home health care services because: Patient has SOB Deconditioned w/ increased weakness I certify that my clinical findings support that this patient is homebound because: Post-op weakness Tonya Jacobson May 09, 2017 17:35
[2017-05-09] MEDS: SENNOSIDES 8.6 MG TAB PO SCH (21:28)
[2017-05-10] VITALS (31 sets, daily range): BP systolic 97–117; BP diastolic 55–70; PULSE 80–105; RESP 16–20; TEMP 97–98.4; O2SAT 97–100
[2017-05-10] MEDS: RESP: ALBUTEROL 2.5 MG/IPRATROPIUM 0.5 MG NEB (PRN) NEB ×2 (02:37→20:27)
[2017-05-10] MEDS: ALPRAZolam 0.25 MG TAB PO PRN ×2 (03:25→19:16)
[2017-05-10] MEDS: ACETAMINOPHEN/HYDROcodone 325 MG/5 MG TAB PO PRN ×4 (03:26→21:02)
--- NOTE | 2017-05-10 05:11 | RADRPT ---
EXAM DATE/TIME: 05/10/2017 04:19 [facility] COMPARISON: CHEST SINGLE AP, May 09, 2017, 10:43. INDICATIONS : Shortness of breath, possible pulmonary disease. MEDICAL HISTORY : Cardiovascular disease. Chronic obstructive pulmonary disease. Asthma SURGICAL HISTORY : Cholecystectomy. ENCOUNTER: Subsequent ACUITY: 4 - 6 days PAIN SCORE: 8/10 LOCATION: Bilateral chest FINDINGS: The cardiac silhouette is enlarged in transverse diameter. A left chest tube is in place. There is no evidence of pneumothorax. A vascular sheath is kinked in the left subclavian vein. A right chest tub e is present with small right apical pneumothorax. There is subsegmental atelectasis in the both bas es. CONCLUSION: 1. Small right apical pneumothorax. There has been no significant change when compared to the prior e xam. 2. Vascular sheath kinked in the left subclavian vein Timi Gonzalez MD on May 10, 2017 at 5:08 Board Certified Radiologist. This report was verified electronically.
[2017-05-10] MEDS: PANTOPRAZOLE SOD 40 MG DELAYED RELEASE TAB PO SCH (05:28)
[2017-05-10] MEDS: INSULIN ASPART SUPPLEMENTAL SCALE SQ SCH ×4 (08:00→21:00)
[2017-05-10] MEDS: RESP: ALBUTEROL 2.5 MG/IPRATROPIUM 0.5 MG NEB (SCH) NEB (08:42)
[2017-05-10] MEDS: ASPIRIN 81 MG CHEW TAB PO SCH (09:00)
[2017-05-10] MEDS: POLYETHYLENE GLYCOL 17 GM PKG PO SCH (09:00)
[2017-05-10] MEDS: MAGNESIUM HYDROXIDE SUSP 30 ML CUP PO SCH (09:00)
[2017-05-10] MEDS: METOPROLOL TARTRATE 25 MG TAB PO SCH ×2 (09:25→21:03)
[2017-05-10] MEDS: AMIODARONE 200 MG TAB PO SCH ×2 (09:25→21:02)
[2017-05-10] MEDS: MULTIVITAMINS/MINERALS THERAPEUTIC TAB PO SCH (09:25)
[2017-05-10] MEDS: DOCUSATE SODIUM 100 MG CAP PO SCH ×2 (09:26→21:02)
[2017-05-10] MEDS: TIOTROPIUM BROMIDE 18 MCG INH INH SCH (09:26)
--- NOTE | 2017-05-10 10:15 | PD.CAR.PN ---
CVT Progress Note Subjective/Hospital Course: 62/ multi medical hx / hx of MVP severe MR elective surgery PMH: Vtach, esophageal strictures/ prior dilation , asthma, HLP, COPD anxiety , EF 57% surgery : Mini MVR 30 sequin ring/ WENDI intraop 05/07 extubated after surgery 05/08 c/o of difficulty swallowing , speech therapy consulted, requesting GI consult with Dr Huerta weaned off insulin gtt, pain controlled , add low dose xanax transfer to stepdown cxr small right apical PTX 05/09 small bilat PTX, leave chest tubes in to suction dysphagia improved pain controlled pulm toileting OOB/ ambulate 05/10 right upper chest wall incision intact and well approximated silk suture removed from left groin left chest tube removed without difficulty right chest tube now to water seal PLT 63 05/09/ f/u lab in am , hold ASA for PLT <70K Objective: GENERAL: SKIN: Warm and dry. incision intact right upper chest wall, right chest tube in place, to water seal HEAD: Normocephalic. EYES: No scleral icterus. No injection or drainage. NECK: Supple, trachea midline. No JVD or lymphadenopathy. CARDIOVASCULAR: Regular rate and rhythm without murmurs, gallops, or rubs. + 1 edema lower ext RESPIRATORY: Breath sounds equal bilaterally. No accessory muscle use. right chest tube in place, no air leak , left chest tube removed GASTROINTESTINAL: Abdomen soft, non-tender, nondistended. MUSCULOSKELETAL: No cyanosis, or edema. BACK: Nontender without obvious deformity. No CVA tenderness. Vital Signs Date Time Temp Pulse Resp B/P (MAP) Pulse Ox O2 Delivery O2 Flow Rate FiO2 05/10/17 08:43 100 Nasal Cannula 4.00 05/10/17 08:32 100 Nasal Cannula 4.00 05/10/17 08:32 98.1 89 16 117/60 (79) 100 05/10/17 07:10 96 05/10/17 06:00 86 05/10/17 05:00 82 05/10/17 04:04 82 05/10/17 03:53 98.1 95 109/70 (83) 100 05/10/17 03:53 Nasal Cannula 5.00 05/10/17 03:00 105 05/10/17 02:26 105 05/10/17 01:00 80 05/10/17 00:22 97.8 83 103/56 (72) 100 05/10/17 00:22 Nasal Cannula 5.00 05/10/17 00:00 80 05/09/17 23:00 80 05/09/17 22:00 86 05/09/17 21:00 90 05/09/17 20:41 97 Nasal Cannula 4.00 05/09/17 20:38 98 Nasal Cannula 3.00 05/09/17 20:00 88 05/09/17 19:00 Nasal Cannula 5.00 05/09/17 19:00 88 05/09/17 19:00 98.2 90 121/57 (78) 99 05/09/17 18:00 85 05/09/17 17:01 20 05/09/17 17:01 20 05/09/17 17:00 84 05/09/17 16:00 95 Nasal Cannula 5.00 05/09/17 16:00 98.5 80 104/58 (73) 97 05/09/17 16:00 85 05/09/17 15:00 87 05/09/17 14:00 88 05/09/17 13:00 84 05/09/17 12:00 86 05/09/17 11:48 98.8 80 102/56 (71) 99 05/09/17 11:46 96 Nasal Cannula 5.00 05/09/17 11:00 82 Result Diagram: 05/09/1755005/09/17550 (1) COPD (chronic obstructive pulmonary disease) Plan: nebs, wean 02 as tolerated (2) Anxiety Plan: prn xanax (3) History of esophageal stricture Plan: GI, speech following / improved (4) Dysphagia Plan: mechanical soft diet appreciate GI input (5) S/P MVR (mitral valve replacement) Plan: ASA, amiodarone pulm toileting OOB ambulate left chest tube dc right chest tube to water seal (6) Mitral regurgitation (7) Diastolic CHF due to valvular disease Plan: on Tonya Roberts May 10, 2017 10:15
[2017-05-10] MEDS: FUROSEMIDE 20 MG/2 ML VIAL IV PUSH SCH ×2 (12:19→17:03)
[2017-05-10] MEDS: POTASSIUM CHLORIDE 10 MEQ CAP PO SCH ×2 (12:20→21:02)
[2017-05-10] MEDS: ZOLPIDEM TARTRATE 5 MG TAB PO PRN (21:03)
[2017-05-10] MEDS: SENNOSIDES 8.6 MG TAB PO SCH (21:03)
[2017-05-11] VITALS (27 sets, daily range): BP systolic 92–116; BP diastolic 53–60; PULSE 16–103; RESP 14–16; TEMP 97–98.8; O2SAT 92–98
[2017-05-11] MEDS: ACETAMINOPHEN/HYDROcodone 325 MG/5 MG TAB PO PRN ×3 (04:19→14:11)
[2017-05-11 05:45] LABS: HEMATOCRIT 24.5 % (35.0-46.0); MEAN CELL VOLUME 98.9 FL (80.0-100.0); MEAN CORPUSCULAR HEMOGLOBIN 34.4 PG (27.0-34.0); MEAN CORPUSCULAR HGB CONC 34.8 % (32.0-36.0); PLATELET COUNT 88 TH/MM3 (150-450); RED BLOOD COUNT 2.47 MIL/MM3 (4.00-5.30); RED CELL DISTRIBUTION WIDTH 12.2 % (11.6-17.2); WHITE BLOOD COUNT 8.1 TH/MM3 (4.0-11.0)
[2017-05-11 05:49] LABS: REVIEW FLAG FINAL
[2017-05-11 05:53] LABS: BICARBONATE 32.3 MEQ/L (21.0-32.0); POTASSIUM 3.2 MEQ/L (3.5-5.1)
--- NOTE | 2017-05-11 06:19 | RADRPT ---
EXAM DATE/TIME: 05/11/2017 04:48 [facility] COMPARISON: CHEST SINGLE AP, May 10, 2017, 4:19. INDICATIONS : Follow up right sided pneumothorax. MEDICAL HISTORY : Cardiovascular disease. Chronic obstructive pulmonary disease. Asthma. SURGICAL HISTORY : Cholecystectomy. ENCOUNTER: Subsequent ACUITY: 4 - 6 days PAIN SCORE: 0/10 LOCATION: chest FINDINGS: A single view of the chest demonstrates right-sided chest tube and tiny right apical pneumothorax. Mi nimal bibasilar atelectasis slightly improved. Left-sided chest tube removed. No pneumothorax on the left. Heart normal in size and midline. Osseous structures are intact. CONCLUSION: 1. Tiny right apical pneumothorax. 2. Removal of left-sided chest tube and no pneumothorax. Andry Pretty MD on May 11, 2017 at 6:16 Board Certified Radiologist. This report was verified electronically.
[2017-05-11] MEDS: PANTOPRAZOLE SOD 40 MG DELAYED RELEASE TAB PO SCH (06:20)
[2017-05-11] MEDS: INSULIN ASPART SUPPLEMENTAL SCALE SQ SCH ×4 (08:00→21:36)
[2017-05-11] MEDS: RESP: ALBUTEROL 2.5 MG/IPRATROPIUM 0.5 MG NEB (PRN) NEB (08:39)
[2017-05-11] MEDS: MAGNESIUM HYDROXIDE SUSP 30 ML CUP PO SCH (09:00)
[2017-05-11] MEDS: POLYETHYLENE GLYCOL 17 GM PKG PO SCH (09:00)
[2017-05-11] MEDS: ASPIRIN 81 MG CHEW TAB PO SCH (09:00)
[2017-05-11] MEDS ORDERED: POTASSIUM CHLORIDE 10 MEQ CONTROLLED RELEASE TAB PO ONE (09:00)
[2017-05-11] MEDS: TIOTROPIUM BROMIDE 18 MCG INH INH SCH (09:04)
[2017-05-11] MEDS: METOPROLOL TARTRATE 25 MG TAB PO SCH ×2 (09:04→21:15)
[2017-05-11] MEDS: MULTIVITAMINS/MINERALS THERAPEUTIC TAB PO SCH (09:05)
[2017-05-11] MEDS: DOCUSATE SODIUM 100 MG CAP PO SCH ×2 (09:05→21:00)
[2017-05-11] MEDS: AMIODARONE 200 MG TAB PO SCH ×2 (09:05→21:16)
[2017-05-11] MEDS: FUROSEMIDE 20 MG/2 ML VIAL IV PUSH SCH (09:07)
--- NOTE | 2017-05-11 13:22 | RADRPT ---
EXAM DATE/TIME: 05/11/2017 12:56 [facility] COMPARISON: CHEST SINGLE AP, May 11, 2017, 4:48. INDICATIONS : Chest tube removed. MEDICAL HISTORY : Cardiovascular disease. Chronic obstructive pulmonary disease. Asthma SURGICAL HISTORY : Right shoulder. ENCOUNTER: Subsequent ACUITY: 4 - 6 days PAIN SCORE: 0/10 LOCATION: Bilateral chest FINDINGS: Status post removal of the right-sided chest tube. No definite pneumothorax. There are mild bibasilar infiltrates. The heart size is stable. The bony structures are stable. CONCLUSION: No evidence of pneumothorax. Martín Crooks MD on May 11, 2017 at 13:19 Board Certified Radiologist. This report was verified electronically.
[2017-05-11] MEDS ORDERED: ASPI81CH25 PO (16:05)
[2017-05-11] MEDS ORDERED: ALPR.25 PO (16:05)
[2017-05-11] MEDS ORDERED: METO25TA3 PO (16:05)
[2017-05-11] MEDS ORDERED: AMBI5TAB PO (16:05)
[2017-05-11] MEDS ORDERED: AMIO200T PO (16:05)
[2017-05-11] MEDS ORDERED: DOCU1CAP39 PO (16:05)
[2017-05-11] MEDS ORDERED: HYDR-3516 PO (16:05)
[2017-05-11] MEDS ORDERED: THERM PO (16:05)
--- NOTE | 2017-05-11 16:13 | HHI.DS ---
Discharge Summary Admission Date May 07, 2017 at 05:23 Discharge Date: May 12, 2017 Admitting Diagnosis MITRAL VALVE REGURGITATION (1) Mitral regurgitation Diagnosis: Principal ICD Codes: I34.0 - Nonrheumatic mitral (valve) insufficiency Status: Chronic (2) Diastolic CHF due to valvular disease Diagnosis: Principal ICD Codes: I38 - Endocarditis, valve unspecified; I50.30 - Unspecified diastolic (congestive) heart failure Status: Chronic (3) COPD (chronic obstructive pulmonary disease) Diagnosis: Principal ICD Codes: J44.9 - Chronic obstructive pulmonary disease, unspecified Status: Chronic (4) Anxiety Diagnosis: Principal ICD Codes: F41.9 - Anxiety disorder, unspecified Status: Chronic (5) Dysphagia Diagnosis: Principal ICD Codes: R13.10 - Dysphagia, unspecified Status: Chronic (6) History of esophageal stricture Diagnosis: Principal ICD Codes: Z87.19 - Personal history of other diseases of the digestive system Status: Chronic (7) S/P MVR (mitral valve replacement) Diagnosis: Principal ICD Codes: Z95.2 - Presence of prosthetic heart valve Procedures Minimally invasive MV repair with a 30 [place] ring WENDI Ultrasound guided percutaneous cannulation of the left femoral artery and vein with Perclose closure of the artery 05/07 Brief History 62/ multi medical hx / hx of MVP severe MR elective surgery PMH: Vtach, esophageal strictures/ prior dilation , asthma, HLP, COPD anxiety , EF 57% surgery : Mini MVR 30 sequin ring/ WENDI intraop 05/07 CBC/BMP: 05/11/17 0510 05/11/17 0510 Significant Findings Laboratory Tests Test 05/09/17 05:51 05/11/17 05:10 White Blood Count 11.2 TH/MM3 (4.0-11.0) Red Blood Count 2.36 MIL/MM3 (4.00-5.30) 2.47 MIL/MM3 (4.00-5.30) Hemoglobin 7.8 GM/DL (11.6-15.3) 8.5 GM/DL (11.6-15.3) Hematocrit 23.2 % (35.0-46.0) 24.5 % (35.0-46.0) Platelet Count 63 TH/MM3 (150-450) 88 TH/MM3 (150-450) Neutrophils (%) (Auto) 84.8 % (16.0-70.0) Neutrophils # (Auto) 9.5 TH/MM3 (1.8-7.7) Platelet Estimate LOW (NORMAL) Basophilic Stippling FAINT (NORMAL) Creatinine 0.43 MG/DL (0.50-1.00) 0.35 MG/DL (0.50-1.00) Random Glucose 129 MG/DL (74-106) Calcium Level 8.3 MG/DL (8.5-10.1) Chloride Level 108 MEQ/L (98-107) Mean Corpuscular Hemoglobin 34.4 PG (27.0-34.0) Blood Urea Nitrogen 4 MG/DL (7-18) Potassium Level 3.2 MEQ/L (3.5-5.1) Carbon Dioxide Level 32.3 MEQ/L (21.0-32.0) Imaging Last Impressions Chest X-Ray 05/11/17 1300 Signed Impressions: Service Date/Time: Thursday, May 11, 2017 12:56 - CONCLUSION: No evidence of pneumothorax. Martín Crooks MD PE at Discharge GENERAL: SKIN: Warm and dry.incision intact right upper chest wall dressing to right and left chest tube sites HEAD: Normocephalic. EYES: No scleral icterus. No injection or drainage. NECK: Supple, trachea midline. No JVD or lymphadenopathy. CARDIOVASCULAR: Regular rate and rhythm without murmurs, gallops, or rubs. RESPIRATORY: Breath sounds equal bilaterally. No accessory muscle use. GASTROINTESTINAL: Abdomen soft, non-tender, nondistended. MUSCULOSKELETAL: No cyanosis, or edema. BACK: Nontender without obvious deformity. No CVA tenderness. Hospital Course extubated after surgery 05/08 c/o of difficulty swallowing , speech therapy consulted, requesting GI consult with Dr Huerta weaned off insulin gtt, pain controlled , add low dose xanax transfer to stepdown cxr small right apical PTX 05/09 small bilat PTX, leave chest tubes in to suction dysphagia improved pain controlled pulm toileting OOB/ ambulate 05/10 right upper chest wall incision intact and well approximated silk suture removed from left groin left chest tube removed without difficulty right chest tube now to water seal PLT 63 05/09/ f/u lab in am , hold ASA for PLT <70K 05/11 plt improving to 88 k right chest tube removed without difficulty f/u CXR no PTX , eval for dc to SNF in am remains in NSR Pt Condition on Discharge: Good Discharge Disposition: Discharge to SNF Discharge Instructions DIET: Follow Instructions for: Heart Healthy Diet Activities you can perform: Full Weight Bearing, Shower Only-No Bath Activities to avoid: Prolonged Standing, Strenuous Activity, Driving Additional Activity Instructio: no lifting > 8 lbs or gallon of milk Follow up Referrals: Appointment for Follow Up Appointment for Follow Up PCP Follow-up New Orders: 2D ECHO - 2 Weeks BASIC METABOLIC PROF - 2 Weeks CBC NO DIFF - 2 Weeks X-RAY CHEST PA & LAT - 2 Weeks New Medications: Alprazolam (Xanax) 0.25 Mg Tab 0.25 MG PO Q12HR PRN for ANXIETY AND/OR INSOMNIA, #14 TAB 0 Refills Amiodarone (Amiodarone) 200 Mg Tab 200 MG PO Q12HR for heart rhythm, #28 TAB 0 Refills for 2 weeks only Aspirin (Aspirin Low Strength) 81 Mg Chew 81 MG PO DAILY for Blood Clot Prevention, #30 EA 2 Refills Docusate Sodium (Dok) 100 Mg Cap 100 MG PO DAILY PRN for CONSTIPATION, #30 CAP Hydrocodone-Acetaminophen (Hydrocodone-Acetaminophen) 5-325 mg Tab 1 TAB PO Q4H PRN for PAIN SCALE 1 TO 5, #40 TAB 0 Refills Metoprolol Tartrate (Metoprolol Tartrate) 25 Mg Tab 12.5 MG PO BID for Blood Pressure Management, #60 TAB 2 Refills Multiple Vitamins W/ Minerals (Thera M Plus) 1 Tab 1 TAB PO DAILY for multi vitamin, #30 TAB 2 Refills Zolpidem (Ambien) 5 Mg Tab 5 MG PO HS PRN for INSOMNIA, #7 TAB 0 Refills Continued Medications: Ipratropium HFA 12.9 GM Inh (Atrovent HFA 12.9 GM Inh) 17 Mcg/Actuation Aer 2 PUFF INH QID, #1 INHALER 0 Refills Prednisone (Prednisone) 10 Mg Tab 10 MG PO DAILY PRN for WHEEZING, TAB 0 Refills Discontinued Medications: Hydrocodone-Acetaminophen ([place]) 5-325 mg Tab 1 TAB PO Q4H PRN for PAIN, TAB 0 Refills Lorazepam (Ativan) 1 Mg Tab 1 MG PO HS PRN for ANXIETY AND/OR AGITATION, TAB 0 Refills Zolpidem (Ambien) 5 Mg Tab 5 MG PO HS PRN for INSOMNIA, TAB 0 Refills Tonya Jacobson May 11, 2017 16:13
[2017-05-11] MEDS: predniSONE 10 MG TAB PO PRN (18:37)
[2017-05-11] MEDS: ALPRAZolam 0.25 MG TAB PO PRN (18:37)
[2017-05-11] MEDS: SENNOSIDES 8.6 MG TAB PO SCH (21:00)
[2017-05-11] MEDS: ZOLPIDEM TARTRATE 5 MG TAB PO PRN (21:15)
[2017-05-12] VITALS (25 sets, daily range): BP systolic 88–108; BP diastolic 50–65; PULSE 80–105; RESP 16–18; TEMP 97.7–98.7; O2SAT 94–100
[2017-05-12] MEDS: ACETAMINOPHEN/HYDROcodone 325 MG/5 MG TAB PO PRN ×3 (01:00→21:09)
[2017-05-12] MEDS: PANTOPRAZOLE SOD 40 MG DELAYED RELEASE TAB PO SCH (06:00)
[2017-05-12 06:28] LABS: BICARBONATE 32.6 MEQ/L (21.0-32.0); MAGNESIUM 1.9 MG/DL (1.5-2.5); POTASSIUM 4.1 MEQ/L (3.5-5.1)
[2017-05-12] MEDS: INSULIN ASPART SUPPLEMENTAL SCALE SQ SCH ×4 (08:00→21:00)
[2017-05-12] MEDS: POLYETHYLENE GLYCOL 17 GM PKG PO SCH (09:00)
[2017-05-12] MEDS: DOCUSATE SODIUM 100 MG CAP PO SCH ×2 (09:00→21:00)
[2017-05-12] MEDS: POTASSIUM CHLORIDE 10 MEQ CAP PO SCH (09:00)
[2017-05-12] MEDS: MAGNESIUM HYDROXIDE SUSP 30 ML CUP PO SCH (09:00)
[2017-05-12] MEDS: METOPROLOL TARTRATE 25 MG TAB PO SCH ×2 (09:12→21:09)
[2017-05-12] MEDS: FUROSEMIDE 20 MG/2 ML VIAL IV PUSH SCH (09:12)
[2017-05-12] MEDS: AMIODARONE 200 MG TAB PO SCH ×2 (09:13→21:08)
[2017-05-12] MEDS: TIOTROPIUM BROMIDE 18 MCG INH INH SCH (09:13)
[2017-05-12] MEDS: MULTIVITAMINS/MINERALS THERAPEUTIC TAB PO SCH (09:13)
[2017-05-12] MEDS: ASPIRIN 81 MG CHEW TAB PO SCH (09:13)
--- NOTE | 2017-05-12 09:41 | PD.CAR.PN ---
CVT Progress Note Subjective/Hospital Course: 62/ multi medical hx / hx of MVP severe MR elective surgery PMH: Vtach, esophageal strictures/ prior dilation , asthma, HLP, COPD anxiety , EF 57% surgery : Mini MVR 30 sequin ring/ WENDI intraop 05/07 extubated after surgery 05/08 c/o of difficulty swallowing , speech therapy consulted, requesting GI consult with Dr Huerta weaned off insulin gtt, pain controlled , add low dose xanax transfer to stepdown cxr small right apical PTX 05/09 small bilat PTX, leave chest tubes in to suction dysphagia improved pain controlled pulm toileting OOB/ ambulate 05/10 right upper chest wall incision intact and well approximated silk suture removed from left groin left chest tube removed without difficulty right chest tube now to water seal PLT 63 05/09/ f/u lab in am , hold ASA for PLT <70K 05/12 Doing well Awaiting discharge disposition. Evaluate for SNF Objective: Vital Signs Date Time Temp Pulse Resp B/P (MAP) Pulse Ox O2 Delivery O2 Flow Rate FiO2 05/12/17 06:00 84 05/12/17 05:00 82 05/12/17 04:00 80 05/12/17 04:00 14 05/12/17 03:00 100 Nasal Cannula 2.00 05/12/17 03:00 94 05/12/17 03:00 98.7 85 16 96/53 (67) 100 05/12/17 02:04 16 05/12/17 02:00 82 05/12/17 01:00 84 05/12/17 00:00 86 05/11/17 23:00 94 Room Air 05/11/17 23:00 88 05/11/17 23:00 98.5 90 16 102/59 (73) 94 05/11/17 22:00 86 05/11/17 21:26 92 05/11/17 21:00 98 05/11/17 20:00 98 16 116/55 (75) 96 05/11/17 20:00 96 Room Air 05/11/17 20:00 100 05/11/17 19:00 96 05/11/17 18:00 92 05/11/17 17:00 95 05/11/17 16:00 96 05/11/17 15:00 94 Nasal Cannula 2.00 05/11/17 15:00 98 10/20/17 15:00 97.9 98 16 92/53 (66) 96 05/11/17 14:00 95 05/11/17 13:00 93 05/11/17 12:00 100 05/11/17 11:00 98.8 93 16 98/60 (73) 94 05/11/17 11:00 93 05/11/17 11:00 94 Nasal Cannula 2.00 05/11/17 10:00 103 Labs: Laboratory Tests Test 05/12/17 04:21 Blood Urea Nitrogen 4 MG/DL (7-18) Creatinine 0.34 MG/DL (0.50-1.00) Random Glucose 88 MG/DL (74-106) Calcium Level 8.5 MG/DL (8.5-10.1) Magnesium Level 1.9 MG/DL (1.5-2.5) Sodium Level 139 MEQ/L (136-145) Potassium Level 4.1 MEQ/L (3.5-5.1) Chloride Level 103 MEQ/L (98-107) Carbon Dioxide Level 32.6 MEQ/L (21.0-32.0) Anion Gap 3 MEQ/L (5-15) Estimat Glomerular Filtration Rate 194 ML/MIN (>89) Result Diagram: 05/11/17 0510 05/12/17 0421 (1) COPD (chronic obstructive pulmonary disease) Plan: nebs, wean 02 as tolerated (2) Anxiety Plan: prn xanax (3) History of esophageal stricture Plan: GI, speech following / improved (4) Dysphagia Plan: mechanical soft diet appreciate GI input (5) S/P MVR (mitral valve replacement) Plan: ASA, amiodarone pulm toileting OOB ambulate left chest tube dc right chest tube to water seal (6) Mitral regurgitation (7) Diastolic CHF due to valvular disease Plan: on Tommy Borges MD May 12, 2017 09:41
[2017-05-12] MEDS: ALPRAZolam 0.25 MG TAB PO PRN (19:01)
[2017-05-12] MEDS: SENNOSIDES 8.6 MG TAB PO SCH (21:00)
[2017-05-12] MEDS: ZOLPIDEM TARTRATE 5 MG TAB PO PRN (21:40)
[2017-05-13] VITALS (13 sets, daily range): BP systolic 96–112; BP diastolic 55–59; PULSE 81–96; RESP 16–18; TEMP 97.7–98.5; O2SAT 92–96
[2017-05-13] MEDS: ACETAMINOPHEN/HYDROcodone 325 MG/5 MG TAB PO PRN ×3 (03:30→12:34)
[2017-05-13] MEDS: PANTOPRAZOLE SOD 40 MG DELAYED RELEASE TAB PO SCH (05:57)
[2017-05-13] MEDS: INSULIN ASPART SUPPLEMENTAL SCALE SQ SCH ×2 (08:00→12:00)
[2017-05-13] MEDS: AMIODARONE 200 MG TAB PO SCH (08:11)
[2017-05-13] MEDS: POTASSIUM CHLORIDE 10 MEQ CAP PO SCH (08:11)
[2017-05-13] MEDS: TIOTROPIUM BROMIDE 18 MCG INH INH SCH (08:11)
[2017-05-13] MEDS: MULTIVITAMINS/MINERALS THERAPEUTIC TAB PO SCH (08:12)
[2017-05-13] MEDS: METOPROLOL TARTRATE 25 MG TAB PO SCH (08:12)
[2017-05-13] MEDS: ASPIRIN 81 MG CHEW TAB PO SCH (08:12)
[2017-05-13] MEDS: MAGNESIUM HYDROXIDE SUSP 30 ML CUP PO SCH (08:13)
[2017-05-13] MEDS: POLYETHYLENE GLYCOL 17 GM PKG PO SCH (08:13)
[2017-05-13] MEDS: DOCUSATE SODIUM 100 MG CAP PO SCH (08:13)
[2017-05-13] MEDS: FUROSEMIDE 20 MG/2 ML VIAL IV PUSH SCH (08:13)
[2017-05-17] MEDS ORDERED: CHOL5000 PO (09:42)
[2017-05-17] MEDS ORDERED: LORA-474 PO (09:42)
== END 2017-05-13 14:28 | disposition home health service (06) | DRG 219 ==
LOC: HSDI 05:23 → HCVI 12:28 → HCPC 05-08 11:20
PROVIDERS: ADMIT Thoracic Surgery (Cardiothoracic Vascular Surgery); ATTEND Thoracic Surgery (Cardiothoracic Vascular Surgery)
PROC: 5A1221Z Performance of Cardiac Output, Continuous (ICD-10-PCS; 2017-05-07)
PROC: 0W9B30Z Drainage of Left Pleural Cavity with Drainage Device, Percutaneous Approach (ICD-10-PCS; 2017-05-07)
PROC: 0W9930Z Drainage of Right Pleural Cavity with Drainage Device, Percutaneous Approach (ICD-10-PCS; 2017-05-07)
PROC: 02UG0JZ Supplement Mitral Valve with Synthetic Substitute, Open Approach (ICD-10-PCS; principal; 2017-05-07 07:50)
PROC: B246ZZ4 Ultrasonography of Right and Left Heart, Transesophageal (ICD-10-PCS; 2017-05-07 07:50)
DX: I34.0 Nonrheumatic mitral (valve) insufficiency (principal); I50.33 Acute on chronic diastolic (congestive) heart failure; J93.9 Pneumothorax, unspecified; R13.10 Dysphagia, unspecified; F41.9 Anxiety disorder, unspecified; E78.5 Hyperlipidemia, unspecified; J44.9 Chronic obstructive pulmonary disease, unspecified; Z88.1 Allergy status to other antibiotic agents; Z88.5 Allergy status to narcotic agent; Z91.040 Latex allergy status
CPT/HCPCS: 36430; 71010; 76937; 80048; 81001; 82948; 83735; 85025; 85027; 85610; 85730; 86850; 86900; 86901; 86920; 93005; 93318; 94002; 94150; 94640; 94664; 94667; 94668; J0131; J0282; J0690; J1644; J1815; J1940; J2150; J2250; J2370; J2405; J2720; J2930; J3010; J3370; J3475; J3480; J7120; J7512; P9016

== ENCOUNTER → 2017-05-17 | Day surgery (SDC) | payer MEDICARE, OTHER ==
[~2017-05-17] VITALS: Ht 167.6 cm; Wt 51.0 kg
[~2017-05-17] MED LIST changes: +*RESP: ALBUTEROL 2.5 MG/3 ML NEB (PRN) PERIprocedural Use ONLY NEB ONE; +ALPR.25 PO; +ALUMINUM/MAGNESIUM/SIMETH 30 ML CUP PO ONE; +AMIO200T PO; +AMPICILLIN 2 GM/NS 100 ML IV ONE; +ASPI81CH25 PO; +CHOL5000 PO; +DO NOT ADM ANY ANTICOAGULANT DRUGS PRN; +DOCU1CAP39 PO; +GLUCAGON 1 MG/ML VIAL IV ONE; +HYDR-3516 PO; +METO25TA3 PO; +MORPHINE SULFATE 4 MG/ML INJ IV PUSH ONE; -NORC5TAB PO; +ONDANSETRON HCL 4 MG/2 ML VIAL IV PUSH ONE; +PANTOPRAZOLE SODIUM 40 MG VIAL IV PUSH ONE; +PANTOPRAZOLE SODIUM 40 MG VIAL ONE; +SODIUM CHLOR 0.9% 1000 ML INJ 1,000 ML IV SCH; +SODIUM CHLORIDE 0.9% INJ 10 ML ONE; +THERM PO
[2017-05-17 09:28] VITALS: BP 128/73; PULSE 96; RESP 20; TEMP 98.8; O2SAT 98
[2017-05-17 09:59] VITALS: RESP 20; O2SAT 98
--- NOTE | 2017-05-17 10:01 | PD ---
HPI Chief Complaint: Chest Pain Time Seen by Provider: 09:34 Travel History International Travel<30 days: No Contact w/Intl Traveler<30days: No Traveled to known affect area: No History of Present Illness HPI 62-year-old female complains of chest pain and difficulty swallowing. Patient has history of mitral valve regurgitation status post mitral valve replacement 10 days ago. And also has history of dysphagia with history of cervical wept and Schatzki ring. Patient has recurrent difficulty swallowing in the past and has been seen by solar site assessment specialist Dr. Huerta. Patient most recent seen by gastroenterology was the time she was admitted for mitral valve replacement. Patient refused EGD at that time secondary to her cardiac problem. Patient has been taking liquids and applesauce and ice chips. Patient states that she has increasing difficulty swallowing unable to swallow anything since last night. Patient's unable to take her medications since last night. Patient denies any headache. Patient states that she has chest pain substernally with radiation to the back which is not new to her. Patient denies any shortness of breath. Patient denies abdominal pain. Patient denies any focal weakness or numbness of extremity. Patient also has history of diastolic CHF secondary to valvular disease, COPD, anxiety. 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) Psychiatric: No Reproductive: No Respiratory: Yes (ASTHMA) Immunizations Current: Yes Thyroid Disease: No Tetanus Vaccination: < 5 Years Influenza Vaccination: No Menopausal: Yes : 0 Past Surgical History Abdominal Surgery: Yes (GALLBLADDER ) AICD: No Body Medical Devices: MAGY IN R ARM Cardiac Surgery: Yes (MITRAL VALVE 04/2017) Cholecystectomy: Yes Ear Surgery: No Endocrine Surgery: No Eye Surgery: No Gynecologic Surgery: No Joint Replacement: Yes (R SHOULDER) Oral Surgery: No Pacemaker: No Other Surgery: Yes (ENDOSCOPIES/COLONOCOPIES/ESOPHAGEAL DILITATIONS) Social History Alcohol Use: No Tobacco Use: No Substance Use: No Allergies-Medications (Allergen,Severity, Reaction): Coded Allergies: ciprofloxacin (Unverified Allergy, Severe, Nausea/Vomiting, 05/17/17) hydromorphone (Unverified Allergy, Severe, Confusion, 05/17/17) latex (Unverified Allergy, Severe, Hives, 05/17/17) GLOVE LATEX tramadol (Unverified Allergy, Severe, NAUSEA, 05/17/17) cefuroxime (Unverified Adverse Reaction, Unknown, PT STATES SHE IS NOT ALLERGIC TO THIS, 05/17/17) STATES SHE HAS NEVER HAD THIS MEDICATION ONLY ALLERGIC TO CIPRO AN ANTIBIOTIC Reported Meds & Prescriptions Reported Meds & Active Scripts Active Thera M Plus (Multivitamins/Minerals Therapeutic) 1 Tab 1 Tab PO DAILY Ambien (Zolpidem Tartrate) 5 Mg Tab 5 Mg PO HS PRN Hydrocodone-Acetaminophen 5-325 mg Tab 1 Tab PO Q4H PRN Aspirin Low Strength (Aspirin) 81 Mg Chew 81 Mg PO DAILY Metoprolol Tartrate 25 Mg Tab 12.5 Mg PO BID Amiodarone (Amiodarone HCl) 200 Mg Tab 200 Mg PO Q12HR for 2 weeks only Reported Vitamin D3 (Cholecalciferol) 5,000 Unit Cap 5,000 Units PO DAILY Ativan (Lorazepam) 1 Mg Tab 1 Mg PO Q4H PRN Atrovent HFA 12.9 GM Inh (Ipratropium [place]) 17 Mcg/Actuation Aer 2 Puff INH QID Prednisone 10 Mg Tab 10 Mg PO DAILY PRN Review of Systems General / Constitutional: No: Fever Eyes: No: Visual changes HENT: No: Headaches Cardiovascular: Positive: Chest Pain or Discomfort Respiratory: No: Shortness of Breath Gastrointestinal: Positive: Dysphagia, No: Abdominal Pain Genitourinary: No: Dysuria Musculoskeletal: No: Pain Skin: No Rash Neurologic: No: Weakness Psychiatric: No: Depression Endocrine: No: Polydipsia Hematologic/Lymphatic: No: Easy Bruising Physical Exam Narrative GENERAL: Well-nourished, well-developed patient. SKIN: Focused skin assessment warm/dry. HEAD: Normocephalic. EYES: No scleral icterus. No injection or drainage. NECK: Supple, trachea midline. No JVD or lymphadenopathy. CARDIOVASCULAR: Regular rate and rhythm without murmurs, gallops, or rubs. RESPIRATORY: Breath sounds equal bilaterally. No accessory muscle use. GASTROINTESTINAL: Abdomen soft, non-tender, nondistended. MUSCULOSKELETAL: No cyanosis, or edema. BACK: Nontender without obvious deformity. No CVA tenderness. Neurologic exam normal. Data Data Last Documented VS Vital Signs Date Time Temp Pulse Resp B/P (MAP) Pulse Ox O2 Delivery O2 Flow Rate FiO2 05/17/17 11:41 05/17/17 11:19 89 20 98 Nasal Cannula 2.00 05/17/17 09:28 98.8 Orders Orders Electrocardiogram (05/17/17 ) Electrocardiogram (05/17/17 09:34) Complete Blood Count With Diff (05/17/17 09:34) Comprehensive Metabolic Panel (05/17/17 09:34) Creatine Kinase (Cpk) (05/17/17 09:34) Troponin I (05/17/17 09:34) B-Type Natriuretic Peptide (05/17/17 09:34) Prothrombin Time / Inr (Pt) (05/17/17 09:34) Act Partial Throm Time (Ptt) (05/17/17 09:34) Chest, Single Ap (05/17/17 09:34) Iv Access Insert/Monitor (05/17/17 09:34) Ecg Monitoring (05/17/17 09:34) Oximetry (05/17/17 09:34) Sodium Chlor 0.9% 1000 Ml Inj (Ns 1000 M (05/17/17 09:45) Ondansetron Inj (Zofran Inj) (05/17/17 09:45) Morphine Inj (Morphine Inj) (05/17/17 10:00) Panendo (05/17/17 ) Labs Laboratory Tests Test 05/17/17 10:00 White Blood Count 9.4 TH/MM3 Red Blood Count 2.72 MIL/MM3 Hemoglobin 9.0 GM/DL Hematocrit 26.9 % Mean Corpuscular Volume 98.7 FL Mean Corpuscular Hemoglobin 33.2 PG Mean Corpuscular Hemoglobin Concent 33.6 % Red Cell Distribution Width 13.9 % Platelet Count 328 TH/MM3 Mean Platelet Volume 7.1 FL Neutrophils (%) (Auto) 77.7 % Lymphocytes (%) (Auto) 10.7 % Monocytes (%) (Auto) 8.1 % Eosinophils (%) (Auto) 3.0 % Basophils (%) (Auto) 0.5 % Neutrophils # (Auto) 7.3 TH/MM3 Lymphocytes # (Auto) 1.0 TH/MM3 Monocytes # (Auto) 0.8 TH/MM3 Eosinophils # (Auto) 0.3 TH/MM3 Basophils # (Auto) 0.0 TH/MM3 CBC Comment DIFF FINAL Differential Comment Prothrombin Time 11.1 SEC Prothromb Time International Ratio 1.0 RATIO Activated Partial Thromboplast Time 24.5 SEC Blood Urea Nitrogen 5 MG/DL Creatinine 0.63 MG/DL Random Glucose 87 MG/DL Total Protein 6.5 GM/DL Albumin 3.1 GM/DL Calcium Level 9.0 MG/DL Alkaline Phosphatase 53 U/L Aspartate Amino Transf (AST/SGOT) 26 U/L Alanine Aminotransferase (ALT/SGPT) 26 U/L Total Bilirubin 0.8 MG/DL Sodium Level 141 MEQ/L Potassium Level 3.5 MEQ/L Chloride Level 107 MEQ/L Carbon Dioxide Level 22.8 MEQ/L Anion Gap 11 MEQ/L Estimat Glomerular Filtration Rate 95 ML/MIN Total Creatine Kinase 61 U/L Troponin I 0.06 NG/ML B-Type Natriuretic Peptide 162 PG/ML MDM Medical Decision Making Medical Screen Exam Complete: Yes Emergency Medical Condition: Yes Interpretation(s) Last Impressions Chest X-Ray 05/17/17 0934 Signed Impressions: Service Date/Time: April 10:21 - CONCLUSION: Trace effusion and atelectasis at the right lung base. Shahram Duffy MD 11:46 AM. CBC WBC 9.4. Hemoglobin 9.0 hematocrit 26.9. 77 neutrophil. CMP within normal limit. Troponin 0.06. BNP 162. Differential Diagnosis Differential diagnosis including esophageal stricture, esophageal obstruction, angina, TX, PE, pneumothorax. Narrative Course 62-year-old female with chest pain and difficulty in swallowing. History of esophageal stricture. Normal saline solution 100 cc an hour. Morphine 4 mg IV. Zofran 4 mg IV. I spoke with Dr. Goldstein, solar site assessment specialist covering for Dr. Huerta. Was advised the patient needs EGD this morning. Diagnosis Primary Impression: Dysphagia Qualified Codes: R13.14 - Dysphagia, pharyngoesophageal phase Oumar Spann MD May 17, 2017 10:01
[2017-05-17 10:30] LABS: AUTOMATED NEUTROPHIL # 7.3 TH/MM3 (1.8-7.7); BASOPHIL % 0.5 % (0.0-2.0); EOSINOPHIL # 0.3 TH/MM3 (0-0.4); HEMATOCRIT 26.9 % (35.0-46.0); HEMO FLAGS DIFF FINAL; LYMPH % 10.7 % (9.0-44.0); MEAN CELL VOLUME 98.7 FL (80.0-100.0); MEAN CORPUSCULAR HEMOGLOBIN 33.2 PG (27.0-34.0); MEAN CORPUSCULAR HGB CONC 33.6 % (32.0-36.0); MONO % 8.1 % (0.0-8.0); NEUT % 77.7 % (16.0-70.0); PLATELET COUNT 328 TH/MM3 (150-450); RED BLOOD COUNT 2.72 MIL/MM3 (4.00-5.30); RED CELL DISTRIBUTION WIDTH 13.9 % (11.6-17.2); WHITE BLOOD COUNT 9.4 TH/MM3 (4.0-11.0)
[2017-05-17 10:33] LABS: ALT (GPT) 26 U/L (10-53); ANION GAP 11 MEQ/L (5-15); AST (GOT) 26 U/L (15-37); BICARBONATE 22.8 MEQ/L (21.0-32.0); BLOOD UREA NITROGEN 5 MG/DL (7-18); CHLORIDE 107 MEQ/L (98-107); GLOMERULAR FILTRATION RATE 95 ML/MIN (>89); POTASSIUM 3.5 MEQ/L (3.5-5.1); SODIUM (NA) 141 MEQ/L (136-145)
[2017-05-17 10:37] LABS: ALKALINE PHOSPHATASE 53 U/L (45-117); TOTAL BILIRUBIN ADULT 0.8 MG/DL (0.2-1.0)
[2017-05-17 10:38] LABS: APTT (PATIENT) 24.5 SEC (24.3-30.1); CREATINE KINASE 61 U/L (26-192); PROTHROMBIN TIME - PATIENT 11.1 SEC (9.8-11.6)
--- NOTE | 2017-05-17 10:56 | RADRPT ---
EXAM DATE/TIME: 05/17/2017 10:21 [facility] COMPARISON: CHEST SINGLE AP, May 11, 2017, 12:56. INDICATIONS : Chest pain. Just had open heart surgery. MEDICAL HISTORY : Cardiovascular disease. Chronic obstructive pulmonary disease. Asthma. SURGICAL HISTORY : Right shoulder replacement. Open heart surgery. ENCOUNTER: Initial ACUITY: 4 - 6 days PAIN SCORE: 10/10 LOCATION: Bilateral chest FINDINGS: Trace atelectasis and a tiny effusion have developed at the right lung base. Left lung remains clear. No pneumothorax. Heart size stable, within normal limits. CONCLUSION: Trace effusion and atelectasis at the right lung base. Shahram Duffy MD on May 17, 2017 at 10:55 Board Certified Radiologist. This report was verified electronically.
[2017-05-17 11:19] VITALS: BP 90/50; PULSE 89; RESP 20; O2SAT 98
--- NOTE | 2017-05-17 14:53 | HHI.GIFU ---
Subjective Remarks GI consult and procedure report completed. She had EGD with food bolus removal and esophageal stricture dilatation under general anesthesia. She received 2gm ampicillin preoperatively because of her recent mitral valve surgery. she reports she only takes aspirin daily, no other blood thinners. I gave her 80mg of protonix IV after the procedure to prevent acid irritating the newly dilated strictures. She is in PACU. The nurse reports she has mild desaturation when she is on room air. She is receiving a neb treatment for chest wheezing. She may need observation overnight if she continues to desaturate on room air. Objective Vitals I&O Vital Signs Date Time Temp Pulse Resp B/P (MAP) Pulse Ox O2 Delivery O2 Flow Rate FiO2 05/17/17 11:41 05/17/17 11:19 89 20 90/50 (63) 98 Nasal Cannula 2.00 05/17/17 10:04 20 05/17/17 09:59 20 98 Nasal Cannula 2.00 05/17/17 09:28 98.8 96 20 128/73 (91) 98 I/O 05/16/17 05/16/17 05/16/17 05/17/17 05/17/17 05/17/17 07:00 15:00 23:00 07:00 15:00 23:00 Intake Total 1100 ml Balance 1100 ml Intake Other 1100 ml Laboratory Laboratory Tests Test 05/17/17 10:00 White Blood Count 9.4 Red Blood Count 2.72 Hemoglobin 9.0 Hematocrit 26.9 Mean Corpuscular Volume 98.7 Mean Corpuscular Hemoglobin 33.2 Mean Corpuscular Hemoglobin Concent 33.6 Red Cell Distribution Width 13.9 Platelet Count 328 Mean Platelet Volume 7.1 Neutrophils (%) (Auto) 77.7 Lymphocytes (%) (Auto) 10.7 Monocytes (%) (Auto) 8.1 Eosinophils (%) (Auto) 3.0 Basophils (%) (Auto) 0.5 Neutrophils # (Auto) 7.3 Lymphocytes # (Auto) 1.0 Monocytes # (Auto) 0.8 Eosinophils # (Auto) 0.3 Basophils # (Auto) 0.0 CBC Comment DIFF FINAL Differential Comment Prothrombin Time 11.1 Prothromb Time International Ratio 1.0 Activated Partial Thromboplast Time 24.5 Blood Urea Nitrogen 5 Creatinine 0.63 Random Glucose 87 Total Protein 6.5 Albumin 3.1 Calcium Level 9.0 Alkaline Phosphatase 53 Aspartate Amino Transf (AST/SGOT) 26 Alanine Aminotransferase (ALT/SGPT) 26 Total Bilirubin 0.8 Sodium Level 141 Potassium Level 3.5 Chloride Level 107 Carbon Dioxide Level 22.8 Anion Gap 11 Estimat Glomerular Filtration Rate 95 Total Creatine Kinase 61 Troponin I 0.06 B-Type Natriuretic Peptide 162 Physical Exam HEENT: Pupils round and reactive to light; normocephalic; atraumatic; no jaundice. Throat is clear. NECK: Neck is supple, no JVD, no lymphadenopathy. CHEST: Chest is clear to auscultation and percussion. CARDIAC: Regular rate and rhythm with no murmur gallop or rubs. ABDOMEN: Soft, nondistended, nontender; no hepatosplenomegaly; bowel sounds are present in all four quadrants. EXTREMITIES: No clubbing, cyanosis, or edema. SKIN: Normal; no rash; no jaundice. 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 Assessment and Plan Plan Imp: Esophageal obstruction from food. Esophageal strictures dilated. Recent mitral valve surgery. wheezing Anemia Plan: Home today if fully recovered after the neb treatment. Consider observation overnight if needed. consider transfusion if she stays overnight. Valerio Goldstein MD May 17, 2017 14:53
[2017-05-17 16:36] VITALS: BP 93/63; PULSE 88; RESP 16; TEMP 97.6; O2SAT 96
--- NOTE | 2017-05-17 17:12 | MB ---
cc: VALERIO GOLDSTEIN MD DATE OF CONSULTATION 05/17/17 REASON FOR CONSULTATION Esophageal obstruction. HISTORY OF PRESENT ILLNESS The patient is A 62 years old female who has had dysphagia for some years. She has undergone esophageal dilatations in the past with findings of proximal and distal esophageal strictures. Recently, her strictures have been more severe and she has had increasing difficulty with swallowing. Yesterday, she was eating some shrimp and was trying to chew it very carefully, however, her esophagus became obstructed. She continued to be unable to drink even water and handle her secretions, therefore, she came to the emergency room. PAST MEDICAL HISTORY 1. Positive also for mitral valve disease for which she has undergone surgery with apparent valve replacement and possibly repair of the mitral valve ring. 2. Cholecystectomy in the past. ALLERGIES CIPROFLOXACIN MEDICATIONS Currently do not include any blood thinners except aspirin. FAMILY HISTORY Noncontributory. REVIEW OF SYSTEMS Negative for headache. She does have a bit of a sore discomfort in her lower throat. She denies any rash, no shortness of breath or cough. No dysuria. Otherwise, complete review of systems is normal. PHYSICAL EXAMINATION GENERAL: She is a well-appearing pale female in no apparent distress. She is alert and oriented x3. Her mood is normal and appropriate, although she appears anxious. CHEST: Clear to auscultation. CARDIAC: Heart sounds are normal. ABDOMEN: Soft and nontender. EXTREMITIES: Without cyanosis, clubbing or edema. LABORATORY DATA Shows normal liver enzymes. She has anemia but no evidence of iron-deficiency. White blood cell count was normal. IMPRESSION 1. Esophageal obstruction 2. Known esophageal strictures. 3. Recent mitral valve surgery. PLAN 1. We will perform EGD to remove the food bolus obstructing her esophagus and to dilate her esophagus. She will need a general endotracheal anesthesia and we will premedicate her with ampicillin 2 grams. Postprocedure, we will begin her on Omeprazole and we will try to dilate her well enough so that she can avoid esophageal obstruction in the near future. Valerio Goldstein MD [facility]/ /2:39 PM /4:57 PM
--- NOTE | 2017-05-17 23:40 | EKG ---
Date Performed: 05/17/2017 Time Performed: 09:36:16 PTAGE: 62 years EKG: Sinus rhythm WITH OCCASIONAL VENTRICULAR PREMATURE COMPLEXES BORDERLINE LEFT AXIS DEVIATION NONSPECIFIC T-WAVE AB NORMALITY BORDERLINE ECG PREVIOUS TRACING : 05/08/2017 05.05 Compared to prior tracing no significant change DOCTOR: Gualberto Mendoza Interpretating Date/Time 05/17/2017 23:40:19
== END | disposition home or self-care (01) ==
LOC: NEPC 09:21 → HSDC 12:25
PROVIDERS: ATTEND Internal Medicine Gastroenterology
DX: R13.14 Dysphagia, pharyngoesophageal phase (principal); T18.128A Food in esophagus causing other injury, initial encounter; K22.2 Esophageal obstruction; D64.9 Anemia, unspecified; J44.9 Chronic obstructive pulmonary disease, unspecified; R07.9 Chest pain, unspecified; R06.2 Wheezing; I50.32 Chronic diastolic (congestive) heart failure; F41.9 Anxiety disorder, unspecified; K21.9 Gastro-esophageal reflux disease without esophagitis; Z79.82 Long term (current) use of aspirin; Z79.899 Other long term (current) drug therapy; Z95.2 Presence of prosthetic heart valve; Z96.611 Presence of right artificial shoulder joint; X58.XXXA Exposure to other specified factors, initial encounter
CPT/HCPCS: 00740; 43247; 43248; 71010; 80053; 82550; 83880; 84484; 85025; 85610; 85730; 93005; 94640; 96361; 96374; 96375; 99285; C1769; C9113; J1610; J2270; J2405; J7030; J7613

== ENCOUNTER 2018-03-29 11:10 | Inpatient (IN) ==
[2018-03-29] MEDS ORDERED: Morphine Inj 4 MG/ML Vial IV.PUSH ONE (12:46)
[2018-03-29] MEDS ORDERED: Aluminum/Magnesium/Simethacone Susp 30 ML UDC PO ONE (12:46)
--- NOTE | 2018-03-29 12:53 | ED ---
HPI General Chief complaint: Abdominal Pain Stated complaint: Abd pain Time Seen by Provider: 03/29/18 12:28 History of Present Illness HPI narrative: 63-year-old female here for evaluation of abdominal pain, nausea , vomiting, and diarrhea. The patient reports that she has had these symptoms intermittently for the last several months, however her symptoms have been worse over the last few days. She describes right upper quadrant abdominal pain that is sharp, constant, worse with vomiting. She reports several episodes of vomiting and diarrhea over the last few days. Diarrhea is nonbloody. She reports noticing specks of red in her emesis, however she is unsure if this is Jell-O or blood. History of cholecystectomy. No fevers. No recent travel. No sick contacts. Patient tells me she was at [facility] yesterday and had a significant workup including right upper quadrant ultrasound, however she does not know the results of these tests, and states that her pain has not gone away, and because of that she contacted her primary care physician who advised that she present to the [facility] ED for further evaluation. Related Data Home Medications Medication Instructions Recorded Confirmed aspirin 81 mg PO DAILY 03/29/18 03/29/18 metoprolol tartrate [Lopressor] 12.5 mg PO BID 03/29/18 03/29/18 Allergies Allergy/AdvReac Type Severity Reaction Status Date / Time ciprofloxacin Allergy Severe Nausea/Vomi Verified 03/29/18 12:59 ting hydromorphone Allergy Severe Confusion Verified 03/29/18 12:59 latex Allergy Severe Hives Verified 03/29/18 12:59 tramadol Allergy Severe NAUSEA Verified 03/29/18 12:59 cefuroxime AdvReac Unknown PT STATES Verified 03/29/18 12:59 SHE IS NOT ALLERGIC TO THIS Review of Systems ROS: all other systems reviewed are negative [facility] Medical History Medical History Asthma (Acute) COPD (chronic obstructive pulmonary disease) (Acute) Diverticulitis (Acute) Hiatal hernia (Acute) Social History Social History Substance History: No History of Abuse Second Hand Smoke Exposure: No Smoking Status: Never smoker How Often Do You Have a Drink Containing Alcohol: 2 to 4 times a month Recent Travel in [facility] within the Last 8 Weeks: No Recent Out of Country Travel within the Last 8 Weeks: No Immunization History Tetanus Immunization: Unsure Hx Influenza Vaccine This Season: No Exam Narrative Exam Narrative: GENERAL: Well-developed, well-nourished, awake, alert, no apparent distress. SKIN: Focused skin assessment warm/dry. No rash. HEAD: Atraumatic. Normocephalic. EYES: Pupils equal and round. No scleral icterus. No injection or drainage. ENT: Mucous membranes pink and moist. NECK: Trachea midline. No JVD. CARDIOVASCULAR: Regular rate and rhythm. RESPIRATORY: No accessory muscle use. Clear to auscultation. Breath sounds equal bilaterally. GASTROINTESTINAL: Abdomen soft, nondistended. Mild right upper quadrant tenderness without peritoneal signs. Normal bowel sounds. No hernias. MUSCULOSKELETAL: No obvious deformities. No clubbing. No cyanosis. No edema. NEUROLOGICAL: Awake and alert. No obvious cranial nerve deficits. Motor grossly within normal limits. Normal speech. PSYCHIATRIC: Appropriate mood and affect; insight and judgment normal. Course Initial Documented Vital Signs Temperature 97.8 F 03/29/18 11:17 Pulse Rate 93 H 03/29/18 11:17 Respiratory Rate 16 03/29/18 11:17 Blood Pressure 128/69 03/29/18 11:17 Pulse Oximetry 95 03/29/18 11:17 Last Documented Vital Signs Temperature 97.8 F 03/29/18 11:17 Pulse Rate 90 03/29/18 11:33 Respiratory Rate 20 03/29/18 13:15 Blood Pressure 121/74 03/29/18 11:33 Pulse Oximetry 96 03/29/18 11:33 Medical Decision Making [facility] Narrative Medical decision making narrative: 1:45 PM: The patient tells me that for the last 2 years she has been using alcohol to help her fall asleep drinking 1-2 glasses of wine per night. She started doing this after her mother's 2 years ago. She states that occasionally she has more than this and she is concerned about possibly withdrawing from alcohol as she stopped drinking 3 days ago. At this time I reassured her that she is not displaying any signs or symptoms of alcohol withdrawal. Vital signs and labs reviewed and show slight transaminitis with a T bili of 2.6. This is new for the patient. Troponin is 0.05. CT abdomen pelvis: Prominent common bile duct. No inflammatory changes in the mesentery. Moderate fatty replacement to the liver with small low-density mass 2 cm. Patient was made aware of all findings. She was given a dose of morphine and as well as a GI cocktail which seemed to improve her pain at first, however on reassessment the patient reports that her pain has returned. She does have new T-wave inversions in the anterior and lateral leads as well as a troponin of 0.05. She has history of mitral valve repair performed last year by Dr. Molina. Her maintenance analyst is Dr. Mancia. Given ongoing abdominal pain as well as EKG changes, the patient will be admitted for overnight observation. Case discussed with hospitalist Dr. Morris who will admit the patient to observation. Medical Screen Exam Complete: Yes Emergency Medical Condition: Yes Lab Data Result diagrams: 03/29/18 12:57 03/29/18 12:57 Lab Results 03/29/18 03/29/18 03/29/18 Range/Units 12:57 12:57 12:57 WBC 6.3 (4.0-11.0) th/mm3 RBC 3.95 L (4.00-5.30) mil/mm3 Hgb 13.3 (11.6-15.3) gm/dL Hct 38.8 (35.0-46.0) % MCV 98.4 (80.0-100.0) fL MCH 33.8 (27.0-34.0) pg MCHC 34.3 (32.0-36.0) % RDW 13.5 (11.6-17.2) % Plt Count 154 (150-450) th/mm3 MPV 8.3 (7.0-11.0) fL Neut % (Auto) 65.6 (16.0-70.0) % Lymph % (Auto) 23.3 (9.0-44.0) % Hill % (Auto) 8.7 H (0.0-8.0) % Eos % (Auto) 1.1 (0.0-4.0) % Baso % (Auto) 1.3 (0.0-2.0) % Neut # (Auto) 4.1 (1.8-7.7) th/mm3 Lymph # (Auto) 1.5 (1.0-4.8) th/mm3 Hill # (Auto) 0.5 (0.0-0.9) th/mm3 Eos # (Auto) 0.1 (0.0-0.4) th/mm3 Baso # (Auto) 0.1 (0.0-0.2) th/mm3 WBC Differential . Differential Comment Auto diff final PT 12.0 H (9.8-11.6) sec INR 1.2 Ratio APTT 29.5 (24.3-30.1) sec Sodium 137 (136-145) meq/L Potassium 3.9 (3.5-5.1) meq/L Chloride 98 (98-107) meq/L Carbon Dioxide 25.3 (21.0-32.0) meq/L Anion Gap 14 (5-15) meq/L BUN 5 L (7-18) mg/dL Creatinine 0.98 (0.50-1.00) mg/dL Estimated GFR 57 L (>89) mL/min Random Glucose 115 H (74-106) mg/dL Calcium 8.6 (8.5-10.1) mg/dL Total Bilirubin 2.6 H (0.2-1.0) mg/dL AST 209 H (15-37) U/L ALT 102 H (10-53) U/L Alkaline Phosphatase 141 H (45-117) U/L Total Creatine Kinase 305 H (26-192) U/L CK-MB (CK-2) 6.4 H (0.5-3.6) ng/mL CK-MB (CK-2) % 2.1 (0.0-4.0) % Troponin I 0.05 (0.02-0.05) ng/mL Total Protein 7.3 (6.4-8.2) g/dL Albumin 3.5 (3.4-5.0) g/dL Lipase 76 (73-393) U/L Imaging Data Radiologist's impression: Abdomen/Pelvis CT 03/29/18 12:46 CONCLUSION: 1. Prominent common duct 2. Do not see inflammatory changes in the mesentery 3. Moderate fatty replacement to the liver with small low-density mass laterally left lobe segment 7 as above ECG Data Attestation: I personally reviewed and interpreted this ECG as follows: (Sinus, rate 95, leftward axis, normal intervals, T-wave inversions in V3 through V6) Discharge Plan Discharge Disposition Patient Disposition: 30 Still Patient Discharge Condition Condition: Stable Discharge Details Diagnosis: Transaminitis, Abdominal pain, Abnormal EKG Physicians Team ED Provider: Fei Vale Primary Care Provider: Shahram Whipple Rxs /Orders / Referrals /Forms Prescriptions: No Action metoprolol tartrate [Lopressor] 50 mg Tablet 12.5 mg PO BID RF: 0 aspirin 81 mg Tablet,Chewable 81 mg PO DAILY RF: 0 Status ED Status: With Doctor
[2018-03-29 13:06] LABS: Baso # (Auto) 0.1 th/mm3 (0.0-0.2); Baso % (Auto) 1.3 % (0.0-2.0); Eos # (Auto) 0.1 th/mm3 (0.0-0.4); Eos % (Auto) 1.1 % (0.0-4.0); Hematocrit 38.8 % (35.0-46.0); Hemoglobin 13.3 gm/dL (11.6-15.3); Lymph # (Auto) 1.5 th/mm3 (1.0-4.8); Lymph % (Auto) 23.3 % (9.0-44.0); Mean Corpuscular HGB Conc 34.3 % (32.0-36.0); Mean Corpuscular Hemoglobin 33.8 pg (27.0-34.0); Mean Corpuscular Volume 98.4 fL (80.0-100.0); Mean Platelet Volume 8.3 fL (7.0-11.0); Mono # (Auto) 0.5 th/mm3 (0.0-0.9); Mono % (Auto) 8.7 % (0.0-8.0); Neut # (Auto) 4.1 th/mm3 (1.8-7.7); Neut % (Auto) 65.6 % (16.0-70.0); Platelet Count 154 th/mm3 (150-450); Red Blood Count 3.95 mil/mm3 (4.00-5.30); Red Cell Distribution Width 13.5 % (11.6-17.2); White Blood Count 6.3 th/mm3 (4.0-11.0)
[2018-03-29 13:21] LABS: Activated Partial Thrombo Time 29.5 sec (24.3-30.1); INR 1.2 Ratio
[2018-03-29 13:35] LABS: Alanine Aminotransferase 102 U/L (10-53); Albumin 3.5 g/dL (3.4-5.0); Alkaline Phosphatase 141 U/L (45-117); Anion Gap 14 meq/L (5-15); Blood Urea Nitrogen 5 mg/dL (7-18); Calcium 8.6 mg/dL (8.5-10.1); Carbon Dioxide 25.3 meq/L (21.0-32.0); Chloride 98 meq/L (98-107); Glomerular Filtration Rate 57 mL/min (>89); Glucose,Random 115 mg/dL (74-106); Lipase 76 U/L (73-393); Sodium 137 meq/L (136-145); Total Protein 7.3 g/dL (6.4-8.2); Troponin I 0.05 ng/mL (0.02-0.05)
[2018-03-29 13:36] LABS: Aspartate Aminotransferase 209 U/L (15-37); Creatine Kinase 305 U/L (26-192); Potassium 3.9 meq/L (3.5-5.1)
[2018-03-29 13:49] LABS: CKMB Percent 2.1 % (0.0-4.0); Creatine Kinase MB 6.4 ng/mL (0.5-3.6)
[2018-03-29] MEDS ORDERED: Sod Chloride 0.9% Inj 1,000 ML IV.SIG SCH (14:00)
--- NOTE | 2018-03-29 14:31 | CT ---
EXAM DATE: 03/29/2018 2:12 PM EDT AGE/SEX: 63 years / Female INDICATIONS: Nausea and abdominal pain for one month. CLINICAL DATA: This is the patient's initial encounter. Patient reports that signs and symptoms have been present for 1 month and indicates a pain score of 2/10. MEDICAL/SURGICAL HISTORY: Asthma. Chronic obstructive pulmonary disease. Diverticulitis. Hia maxwell hernia. None. ORAL CONTRAST: No oral contrast ingested. RADIATION DOSE: 6.60 CTDI (mGy) COMPARISON: POI, CT ABDOMEN AND PELVIS W AND W/O CONTRAST, 12/01/2015. . TECHNIQUE: Multiple contiguous axial images were obtained through the abdomen and pelvis following b olus infusion of 90 ml Omnipaque 350 (iohexol) nonionic water-soluble contrast as a single exam dos e. No oral contrast ingested. Using automated exposure control and adjustment of the mA and/or kV ac cording to patient size, radiation dose was kept as low as reasonably achievable to obtain optimal di agnostic quality images. DICOM format image data is available electronically for review and comparis on. FINDINGS: The lower lungs are clear. Moderate fatty replacement to the liver with small 2 cm low-density mass left lobe. Prominent right l obe.. Gallbladder surgically absent Prominent common duct measuring 1.5 cm in the pancreas. Pancreas unremarkable Spleen unremarkable Adrenal glands appear normal Right and left kidneys are unremarkable. Moderate vascular calcifications No inflammatory changes in the abdomen I do not evidence for for colitis. In The pelvis there are multiple diverticuli in the sigmoid colon. Minimal calcifications are seen in the small fibroid uterus. There is no free air. There is no free fluid. CONCLUSION: 1. Prominent common duct 2. Do not see inflammatory changes in the mesentery 3. Moderate fatty replacement to the liver with small low-density mass laterally left lobe segment 7 as above Electronically signed by: Bairon Cox MD 03/29/2018 2:30 PM EDT
[2018-03-29] MEDS ORDERED: Morphine Sulfate Inj 2 MG/ML Vial IV.PUSH ONE (14:57)
[2018-03-29] MEDS ORDERED: Morphine Inj 4 MG/ML Vial IV.PUSH PRN (15:37)
[2018-03-29] MEDS ORDERED: LORazepam 1 MG Tablet PO PRN (15:39)
[2018-03-29] MEDS ORDERED: Haloperidol Inj 5 MG/ML Ampul IV.PUSH PRN (15:39)
--- NOTE | 2018-03-29 15:50 | P.HPIM ---
History of Present Illness Primary Care Physician: Shahram Whipple DO Chief Complaint: abdominal pain History of Present Illness: patient is a 63 y/o female with history of MVP/MR - s/p mitral valve repair, with history of alcohol abuse, presented to ER with abdominal pain. she says that the pain has been going on for a couple of months and associated with on and off nausea, vomiting and diarrhea. pain is localized to the RUQ. she had some night sweats and reports 15 pound weight loss over the past month or two. she also says that since the surgery she's had some pain to the right chest but today she had some left sided chest pain. she was seen at [facility] yesterday and she says that she had some work-up including sonogram of the liver - result of which unknown. she says that she was told that she had ' some withdrawal symptoms'. she says that she started to drink two years ago after she lost her mother. she drinks wine daily and the last drink was four days ago. Review of Systems All other systems reviewed negative except as stated in HPI PMFSH - History History Provided By: Patient - Medical History Medical History: Medical History (Last Updated 03/29/18 @ 15:46 by Domo Morris MD) Asthma COPD (chronic obstructive pulmonary disease) Diverticulitis Hiatal hernia - Surgical History Surgical History: Surgical History (Last Updated 03/29/18 @ 15:46 by Domo Morris MD) History of cholecystectomy - Tobacco History Second Hand Smoke Exposure: No Tobacco Use In Past 30 Days: No Smoking Status: Never smoker - Alcohol History How Often Do You Have a Drink Containing Alcohol: 2 to 4 times a month - Substance Use History Substance History: No History of Abuse - Travel History Recent Travel in the [place] Within the Last 8 Weeks: No Recent Travel Out of the Country Within the Last 8 Weeks: No - Immunization History Tetanus Immunization: Unsure Hx Influenza Vaccine This Season: No Medications and Allergies Active Medications: Active Medications Haloperidol Lactate (Haldol Inj) 1 mg IV.PUSH Q15M PRN PRN Reason: for severe agitation Sodium Chloride (Ns Inj) 1,000 mls @ 0 mls/hr IV.SIG BOLUS THOMAS Last Admin: 03/29/18 15:22 Dose: 1,000 mls/hr Lorazepam (Ativan) 1 mg PO Q4H PRN PRN Reason: for CIWA 8-10 Lorazepam (Ativan) 2 mg PO Q2H PRN PRN Reason: for CIWA 11-14 Lorazepam (Ativan Inj) 2 mg IV.PUSH Q2H PRN PRN Reason: for CIWA 11-14 Lorazepam (Ativan Inj) 2 mg IV.PUSH Q1H PRN PRN Reason: for CIWA 15-20 Lorazepam (Ativan Inj) 2 mg IV.PUSH Q15M PRN PRN Reason: for CIWA > 20 Lorazepam (Ativan Inj) 1 mg IV.PUSH Q4H PRN PRN Reason: for CIWA 8-10 Metoprolol Tartrate (Lopressor) 12.5 mg PO BID THOMAS Sodium Chloride (Ns Flush) 2 ml IV.FLUSH PRN PRN PRN Reason: FLUSH AFTER USING IV ACCESS Allergies Allergy/AdvReac Type Severity Reaction Status Date / Time ciprofloxacin Allergy Severe Nausea/Vomi Verified 03/29/18 12:59 ting hydromorphone Allergy Severe Confusion Verified 03/29/18 12:59 latex Allergy Severe Hives Verified 03/29/18 12:59 tramadol Allergy Severe NAUSEA Verified 03/29/18 12:59 cefuroxime AdvReac Unknown PT STATES Verified 03/29/18 12:59 SHE IS NOT ALLERGIC TO THIS Home Medications Medication Instructions Recorded Confirmed Type aspirin 81 mg PO DAILY 03/29/18 03/29/18 History metoprolol tartrate [Lopressor] 12.5 mg PO BID 03/29/18 03/29/18 History Exam Vital signs: Vital Signs 03/29/18 11:17 03/29/18 11:33 03/29/18 13:15 Temperature 97.8 F Pulse Rate 93 H 90 Respiratory Rate 16 18 20 Blood Pressure 128/69 121/74 Pulse Oximetry 95 96 03/29/18 15:24 Temperature Pulse Rate 85 Respiratory Rate 16 Blood Pressure 127/58 L Pulse Oximetry 97 Intake & Output 03/28/18 03/29/18 03/29/18 18:59 06:59 18:59 Weight 52.163 kg - Constitutional no acute distress - Routine HEENT Exam Eye: Present: PERRL - Detailed Chest Wall Exam Comments: right chest tenderness. - Routine Respiratory Exam Present: CTA bilaterally - Routine Cardiovascular Exam Present: RRR - Routine Abdominal Exam Present: soft, tenderness (RUQ) - Routine Extremities Exam Comments: no pedal edema. - Routine Neurological Exam Present: alert, oriented X3 Results - Labs CBC & Chem 7: 03/29/18 12:57 03/29/18 12:57 Labs: Short CBC 03/29/18 Range/Units 12:57 WBC 6.3 (4.0-11.0) th/mm3 Hgb 13.3 (11.6-15.3) gm/dL Hct 38.8 (35.0-46.0) % Plt Count 154 (150-450) th/mm3 BMP 03/29/18 12:57 Sodium 137 Potassium 3.9 Chloride 98 Carbon Dioxide 25.3 BUN 5 L Creatinine 0.98 Calcium 8.6 Cardiac Enzymes 03/29/18 Range/Units 12:57 Total Creatine Kinase 305 H (26-192) U/L CK-MB (CK-2) 6.4 H (0.5-3.6) ng/mL Troponin I 0.05 (0.02-0.05) ng/mL Liver Function 03/29/18 Range/Units 12:57 Total Bilirubin 2.6 H (0.2-1.0) mg/dL AST 209 H (15-37) U/L ALT 102 H (10-53) U/L Alkaline Phosphatase 141 H (45-117) U/L Albumin 3.5 (3.4-5.0) g/dL - Imaging Impressions Abdomen/Pelvis CT 03/29/18 12:46 CONCLUSION: 1. Prominent common duct 2. Do not see inflammatory changes in the mesentery 3. Moderate fatty replacement to the liver with small low-density mass laterally left lobe segment 7 as above Caprini VTE Risk Assessment Caprini VTE Risk Assessment: Moderate/High Risk (score >= 2) Caprini Risk Assessment Model: Point Value = 1 Point Value = 2 Point Value = 3 Point Value = 5 Age 41-60 Minor surgery BMI > 25 kg/m2 Swollen legs Varicose veins or History of unexplained or recurrent spontaneous Oral contraceptives or hormone replacement Sepsis (< 1 month) Serious lung disease, including pneumonia (< 1 month) Abnormal pulmonary function Acute myocardial infarction Congestive heart failure (< 1 month) History of inflammatory bowel disease Medical patient at bed rest Age 61-74 Arthroscopic surgery Major open surgery (> 45 min) Laparoscopic surgery (> 45 min) Malignancy Confined to bed (> 72 hours) Immobilizing plaster cast Central venous access Age >= 75 History of VTE Family history of VTE Factor V Leiden Prothrombin [id number] Lupus anticoagulant Anticardiolipin antibodies Elevated serum homocysteine Heparin-induced thrombocytopenia Other congenital or acquired thrombophilia Stroke (< 1 month) Elective arthroplasty Hip, pelvis, or leg fracture Acute spinal cord injury (< 1 month) Prophylaxis Regimen: Total Risk Factor Score Risk Level Prophylaxis Regimen 0-1 Low Early ambulation 2 Moderate Order ONE of the following: *Sequential Compression Device (SCD) *Heparin 5000 units SQ BID 3-4 Higher Order ONE of the following medications: *Heparin 5000 units SQ TID *Enoxaparin/Lovenox 40 mg SQ daily (WT < 150 kg, CrCl > 30 mL/min) *Enoxaparin/Lovenox 30 mg SQ daily (WT < 150 kg, CrCl > 10-29 mL/min) *Enoxaparin/Lovenox 30 mg SQ BID (WT < 150 kg, CrCl > 30 mL/min) AND/OR *Sequential Compression Device (SCD) 5 or more Highest Order ONE of the following medications: *Heparin 5000 units SQ TID (Preferred with Epidurals) *Enoxaparin/Lovenox 40 mg SQ daily (WT < 150 kg, CrCl > 30 mL/min) *Enoxaparin/Lovenox 30 mg SQ daily (WT < 150 kg, CrCl > 10-29 mL/min) *Enoxaparin/Lovenox 30 mg SQ BID (WT < 150 kg, CrCl > 30 mL/min) AND *Sequential Compression Device (SCD) Assessment and Plan - Plan A/P - RUQ pain with elevated LFT's and history of alcohol abuse liquid diet for now- continue with supportive care with IV fluid, pain management, antiemetics- will obtain the result of the work-up from [facility]- including sonogram of the liver- consult GI -alcohol abuse; start on CIWA protocol, multivitamin/ folate/thiamine- advised to stop drinking. -chest pain- atypical; check the troponin. continue aspirin and metoprolol. -s/p mitral valve repair- continue metoprolol and aspirin . -DVT prophylaxis with SCD's Discussed Condition With: ER physician and the patient.
[2018-03-29] MEDS: Morphine Sulfate Inj 2 MG/ML Vial IV.PUSH PRN (17:52)
[2018-03-29] MEDS: Multivitamin Inj 10 ML, Thiamine Inj 100 MG, Folic Acid Inj 1 MG in Sodium Chlor 0.9% I... IV.SIG SCH (19:07)
[2018-03-29] MEDS: Metoprolol Tartrate 25 MG Tablet PO SCH (22:46)
[2018-03-30] MEDS: Morphine Sulfate Inj 2 MG/ML Vial IV.PUSH PRN ×2 (02:23→12:22)
[2018-03-30] MEDS: Metoprolol Tartrate 25 MG Tablet PO SCH ×2 (09:39→20:17)
[2018-03-30 10:35] LABS: Albumin 3.2 g/dL (3.4-5.0); Anion Gap 10 meq/L (5-15); Aspartate Aminotransferase 120 U/L (15-37); Blood Urea Nitrogen 2 mg/dL (7-18); Calcium 8.5 mg/dL (8.5-10.1); Carbon Dioxide 24.6 meq/L (21.0-32.0); Chloride 103 meq/L (98-107); Glomerular Filtration Rate 83 mL/min (>89); Glucose,Random 98 mg/dL (74-106); Potassium 3.3 meq/L (3.5-5.1); Sodium 138 meq/L (136-145)
[2018-03-30 10:37] LABS: Alanine Aminotransferase 79 U/L (10-53)
[2018-03-30 10:39] LABS: Alkaline Phosphatase 118 U/L (45-117); Total Protein 6.5 g/dL (6.4-8.2)
[2018-03-30] MEDS ORDERED: Potassium Chloride 25 MEQ Effervescent Tablet PO ONE (11:30)
--- NOTE | 2018-03-30 13:30 | MB ---
cc: Allyssa Porras MD DATE: 03/30/2018 TYPE OF CONSULTATION: GI consult. HISTORY OF PRESENT ILLNESS: This is a 63-year-old female patient who presented to the emergency room complaining of abdominal pain, nausea and vomiting of several days' duration. She had several episodes of diarrhea. The patient had similar attacks and episodes of these symptoms for the last several months, but her symptoms got worse over the last few days. The patient denies any fever, chills or rigors. Denies any change in urine color. Denies any change in weight or appetite or any other associated symptoms. The patient went to [facility] [place], and she had a workup, including right upper quadrant ultrasound, the results of which are not available at this time. At the current time, the patient is asymptomatic. Denies any discomfort. No nausea or vomiting. Currently on clear liquid diet and requesting her diet to be advanced. Her initial labs showed significant increase in liver enzymes and her CT scan showed dilated common bile duct. GI consulted for further evaluation. REVIEW OF SYSTEMS: All 14-point review of systems are negative, other than ones mentioned in the history of present illness. PAST MEDICAL HISTORY: Asthma, chronic obstructive pulmonary disease, diverticulitis, hiatal hernia. PAST SURGICAL HISTORY: Cholecystectomy in 2007, EGD and colonoscopy in 2013 and they were reported as normal except for diverticulosis. PSYCHOSOCIAL HISTORY: The patient never smoked in the past. No history of IV drug abuse. She did admit to drinking over the last 2 years after the loss of her mother, at least a bottle of wine to help her to sleep. MEDICATIONS AT HOME: 1. Aspirin. 2. Lorazepam. ALLERGIES: CIPRO, HYDROMORPHONE, LATEX, TRAMADOL AND CEFUROXIME. PHYSICAL EXAMINATION: GENERAL: The patient found to be comfortable, not in distress or in pain. Hemodynamically stable and good build and nutrition. Normal hydration status. HEAD AND NECK: Normocephalic, atraumatic. Pupils equal, round, reactive to light. NECK: Supple. CHEST: Clear to auscultation bilaterally. No crackles or wheezes. HEART: Regular rate and rhythm. No murmurs. ABDOMEN: Showed overall soft abdomen with mild tenderness on deep palpation, mainly in the right upper quadrant, but Mathias sign is negative. Active bowel sounds. No hepatosplenomegaly. No palpable masses. EXTREMITIES: Normal pulses. No edema. NEUROLOGIC: Cranial nerves 2-12 grossly intact. No focal sensory or motor deficits. ASSESSMENT AND PLAN: A 63-year-old female patient with the following problems. 1. Right upper quadrant abdominal pain, nausea and vomiting. 2. Increase in liver enzymes with mixed picture including transaminitis and cholestasis. 3. Increased AST ratio to double. 4. History of heavy alcohol use over the last 2 years. 5. Dilated biliary tree on the CT scan and history of cholecystectomy. 6. Previous EGD and colonoscopy were unremarkable in 2013. RECOMMENDATIONS: We will need to continue workup for chronic liver disease, although alcohol abuse seems to be the main cause for her problem. We will need to check for antimitochondrial antibody, antiliver microsomal antibody, antinuclear antibody, hepatitis B serology, and hepatitis C serology. The patient will need also to have an MRCP to check for biliary dilatation seen on the CT scan. The patient advised to abstain from alcohol and avoid any hepatotoxic medication. Thank you for the consult. MD MOUSTAPHA Fisher/shannan , 01:12 PM , 01:21 PM
--- NOTE | 2018-03-30 13:34 | P.PN ---
Subjective Interval history: Follow-up for right upper quadrant pain, nausea vomiting diarrhea: Complains of right upper quadrant pain with minimal touch, no more nausea, no more vomiting. Last episode of diarrhea was yesterday. Describes a loose stool, small amount. No fever, no chest pain, no shortness of breath. Indicates that her last alcoholic drink was 5 days ago. When questioned further, patient indicates that it was not 1 glass of wine but she was working her way up to almost 1 bottle a day. Endorses history of elevated liver enzymes in the past, unclear if she had any kind of workup. States that she had lab work done at her PCP in the last 3 months that was okay. Had endoscopy and colonoscopy in 2013 that were both normal. States she went to [facility] a couple days ago and had liver ultrasound done. She was discharged from the emergency room but continued to have abdominal pain therefore she called EMS Physical Exam Vital signs: Vital Signs 03/29/18 15:24 03/29/18 16:00 03/29/18 16:32 Temperature 98.8 F Pulse Rate 85 85 Respiratory Rate 16 19 16 Blood Pressure 127/58 L 110/59 L Pulse Oximetry 97 93 L 03/29/18 19:31 03/29/18 23:59 03/30/18 01:01 Temperature 98.5 F 98.2 F 98.2 F Pulse Rate 92 H 99 H 95 H Respiratory Rate 18 19 19 Blood Pressure 108/63 123/59 L 114/60 Pulse Oximetry 91 L 91 L 95 03/30/18 03:31 03/30/18 08:00 03/30/18 12:00 Temperature 98.4 F 98.3 F 98.5 F Pulse Rate 96 H 99 H 81 Respiratory Rate 18 16 16 Blood Pressure 107/69 120/66 108/61 Pulse Oximetry 92 L 92 L 96 Intake & Output 03/29/18 03/30/18 03/30/18 18:59 06:59 18:59 Intake Total 1000 / 1000 511.2 / 511.2 Balance 1000 / 1000 511.2 / 511.2 Weight 52.163 kg Intake: IV 1000 / 1000 511.2 / 511.2 MVI-12 Inj 10 ML Thiamine Inj 511.2 / 511.2 100 MG Folvite Inj 1 MG In NS Inj 500 ML @ 127.8 mls/hr IV. SIG Q24H [facility] Rx#:[id number] NS Inj 1,000 ML @ Wide Open IV. 1000 / 1000 SIG BOLUS [facility] Rx#:[id number] Other: # Voids 2 # Urine Diapers 1 Date of Last Bowel Movement 03/29/18 03/29/18 Narrative: GENERAL: Thin built female. No apparent distress SKIN: Warm and dry. HEAD: Atraumatic. Normocephalic. EYES: Pupils equal and round. No scleral icterus. No injection or drainage. ENT: No nasal bleeding or discharge. Mucous membranes pink and moist. NECK: Trachea midline. No JVD. CARDIOVASCULAR: Regular rate and rhythm. RESPIRATORY: No accessory muscle use. Clear to auscultation. Breath sounds equal bilaterally. GASTROINTESTINAL: Abdomen soft, right upper quadrant significantly tender with minimal palpation, voluntary guarding. Nondistended. Hepatic and splenic margins unable to palpate MUSCULOSKELETAL: Extremities without clubbing, cyanosis, or edema. No obvious deformities. NEUROLOGICAL: Awake and alert. No obvious cranial nerve deficits. Motor grossly within normal limits. Five out of 5 muscle strength in the arms and legs. Normal speech. PSYCHIATRIC: Appropriate mood and affect; insight and judgment normal. Results - Labs CBC & Chem 7: 03/29/18 12:57 03/30/18 09:46 Laboratory Results - last 24 hr 03/29/18 03/29/18 03/29/18 12:57 16:35 20:00 Sodium 137 Potassium 3.9 Chloride 98 Carbon Dioxide 25.3 Anion Gap 14 BUN 5 L Creatinine 0.98 Estimated GFR 57 L Random Glucose 115 H Calcium 8.6 Total Bilirubin 2.6 H AST 209 H ALT 102 H Alkaline Phosphatase 141 H Total Creatine Kinase 305 H CK-MB (CK-2) 6.4 H CK-MB (CK-2) % 2.1 Troponin I 0.05 0.05 0.05 Total Protein 7.3 Albumin 3.5 Lipase 76 03/30/18 09:46 Sodium 138 Potassium 3.3 L Chloride 103 Carbon Dioxide 24.6 Anion Gap 10 BUN 2 L Creatinine 0.71 Estimated GFR 83 L Random Glucose 98 Calcium 8.5 Total Bilirubin 2.9 H AST 120 H ALT 79 H Alkaline Phosphatase 118 H Total Creatine Kinase CK-MB (CK-2) CK-MB (CK-2) % Troponin I Total Protein 6.5 D Albumin 3.2 L Lipase - Imaging Impressions Abdomen/Pelvis CT 03/29/18 12:46 CONCLUSION: 1. Prominent common duct 2. Do not see inflammatory changes in the mesentery 3. Moderate fatty replacement to the liver with small low-density mass laterally left lobe segment 7 as above Assessment and Plan - Assessment (1) Abdominal pain Code(s): R10.9 - Unspecified abdominal pain Status: Acute (2) Nausea vomiting and diarrhea Code(s): R11.2 - Nausea with vomiting, unspecified; R19.7 - Diarrhea, unspecified Status: Acute (3) Transaminitis Code(s): R74.0 - Nonspecific elevation of levels of transaminase and lactic acid dehydrogenase [LDH] Status: Acute (4) ETOH abuse Code(s): F10.10 - Alcohol abuse, uncomplicated Status: Acute - Plan A/P 63-year-old female presents to the emergency room with complaint of right upper quadrant pain associated with nausea, vomiting, diarrhea. Went to [facility] emergency room for the same, had liver ultrasound done. Endorses drinking 1 bottle of wine a day. No fever, no chills. RUQ pain with elevated LFT's and history of alcohol abuse CT reviewed--and biliary dilatation noted, hx of cholecystectomy. Need to rule out autoimmune causes of transaminitis, possibly elevation is due to alcohol use. -Clear liquid diet for now Continue with pain management, does not like morphine, we will order oxycodone 5 mg p.o. every 6 as needed Antiemetics as needed Report from liver ultrasound pending from [facility], requested that RN refaxed again GI consult, discussed with Dr. Porras. Recommends MRCP. He will do liver workup. -Patient is counseled to quit drinking -Repeat LFTs in a.m., already trending down Alcohol abuse, endorses drinking 1 bottle of wine a day CIWA protocol, multivitamin/ folate/thiamine -advised to stop drinking. -chest pain- atypical -Serial troponin done, 0.053. continue aspirin and metoprolol. s/p mitral valve repair - continue metoprolol and aspirin . DVT prophylaxis with SCD's Replace K We will follow up on MRCP results If patient stable, possible discharge tomorrow. She can follow-up with GI as outpatient for lliver work up results Discussed with RN, patient, Dr. Porras (1) Abdominal pain Qualifiers: Abdominal location: right upper quadrant Qualified Code(s): R10.11 - Right upper quadrant pain
--- NOTE | 2018-03-30 16:24 | MR ---
EXAM DATE: 03/30/2018 4:08 PM EDT AGE/SEX: 63 years / Female INDICATIONS: Abdominal pain. Abnormal abdomen CT with prominent common bile duct. CLINICAL DATA: This is the patient's initial encounter. Patient reports that signs and symptoms have been present for 1 day and indicates a pain score of 5/10. MEDICAL/SURGICAL HISTORY: Cholecystectomy. Right shoulder. Mitral valve replacement. COMPARISON: Abdomen and pelvic CT [facility] 03/29/2018. TECHNIQUE: Multiplanar, multisequence images of the abdomen were obtained without contrast including dedicated cholangiographic images. FINDINGS: Liver: The liver is homogeneous and normal in signal intensity with a benign-appearing cystic lesion left lobe of the liver measuring up to 2 x 1.6 cm. Intrahepatic Bile Ducts: There is mild prominence of the central intrahepatic biliary ductal system with no filling defect or mass. Common Bile Duct: The common bile duct is again noted to be prominent measuring up to 1.3 cm. There is a focal filling defect in the distal duct measuring up to 6 to 7 mm. This is best seen on coronal T2 image #14 and axial T2-weighted image #21. Gallbladder: Status post cholecystectomy with susceptibility artifact in the joy hepatis. Pancreas: The pancreas appears normal in signal with no focal parenchymal abnormalities. The pancrea tic duct is normal in caliber with no filling defects, or obstructing lesions identified. CONCLUSION: 1. Prominence of the common bile duct again noted measuring up to 1.3 cm with a 6 x 8 mm filling def ect along the distal duct. This is of unclear significance but could represent a stone or small mass. 2. Status post cholecystectomy. 3. Benign-appearing cystic lesion in the left lobe of the liver measuring up to approximately 2 x 1. 6 cm. Electronically signed by: Wilmar Wooten MD 03/30/2018 4:23 PM EDT
[2018-03-30] MEDS: Multivitamin Inj 10 ML, Thiamine Inj 100 MG, Folic Acid Inj 1 MG in Sodium Chlor 0.9% I... IV.SIG SCH (19:34)
[2018-03-31 08:09] LABS: Albumin 2.9 g/dL (3.4-5.0); Anion Gap 7 meq/L (5-15); Aspartate Aminotransferase 89 U/L (15-37); Blood Urea Nitrogen 1 mg/dL (7-18); Calcium 8.5 mg/dL (8.5-10.1); Carbon Dioxide 27.8 meq/L (21.0-32.0); Chloride 107 meq/L (98-107); Glomerular Filtration Rate Greater Than 89 mL/min (>89); Glucose,Random 95 mg/dL (74-106); Potassium 3.4 meq/L (3.5-5.1); Sodium 142 meq/L (136-145)
[2018-03-31 08:11] LABS: Alanine Aminotransferase 65 U/L (10-53)
[2018-03-31 08:12] LABS: Alkaline Phosphatase 96 U/L (45-117); Total Protein 5.8 g/dL (6.4-8.2)
[2018-03-31] MEDS: Metoprolol Tartrate 25 MG Tablet PO SCH ×2 (09:00→20:22)
--- NOTE | 2018-03-31 12:33 | ECG ---
Date Performed: 03/29/2018 Time Performed: 14:22:43 PTAGE: 63 years EKG: Sinus rhythm MARKED LEFT AXIS DEVIATION MODERATE T-WAVE ABNORMALITY, CONSIDER ANTERIOR ISCHEMIA ABNORMAL ECG PREVIOUS TRACING : 05/17/2017 09.36 Since the previous tracing, no significant change noted DOCTOR: Timi Yen Interpretating Date/Time 03/31/2018 12:30:49
--- NOTE | 2018-03-31 12:47 | P.PN ---
Subjective Interval history: Follow-up for right upper quadrant pain, nausea vomiting diarrhea: Right upper quadrant pain markedly improved, had some dry heaves yesterday but none today. Bowel movement is loose, green color. Indicates she has vaginal spotting, trista color. Endorses she has had for a couple of months, she is due to see a computer tester at the end of the month. Denies any pelvic pain. No history of STD. Patient is not sexually active. Patient very anxious, wants to go home today.Asking about MRCP results. Physical Exam Vital signs: Vital Signs 03/30/18 19:16 03/30/18 23:33 03/31/18 03:38 Temperature 98.5 F 98.5 F 98.2 F Pulse Rate 82 76 78 Respiratory Rate 18 16 18 Blood Pressure 118/62 108/61 101/57 L Pulse Oximetry 94 L 95 93 L 03/31/18 07:26 03/31/18 12:00 Temperature 98.8 F 98.2 F Pulse Rate 83 85 Respiratory Rate 16 16 Blood Pressure 106/56 L 99/60 L Pulse Oximetry 93 L 93 L Intake & Output 03/30/18 03/31/18 03/31/18 18:59 06:59 18:59 Intake Total 1231.2 / 1231.2 Balance 1231.2 / 1231.2 Intake: IV 511.2 / 511.2 MVI-12 Inj 10 ML Thiamine Inj 511.2 / 511.2 100 MG Folvite Inj 1 MG In NS Inj 500 ML @ 127.8 mls/hr IV. SIG Q24H [facility] Rx#:[id number] Oral 720 / 720 Other: # Voids 2 4 # Urine Diapers 1 Date of Last Bowel Movement 03/29/18 03/30/18 03/30/18 Narrative: GENERAL: Thin built female. No apparent distress SKIN: Warm and dry. HEAD: Atraumatic. Normocephalic. EYES: Pupils equal and round. No scleral icterus. No injection or drainage. ENT: No nasal bleeding or discharge. Mucous membranes pink and moist. NECK: Trachea midline. No JVD. CARDIOVASCULAR: Regular rate and rhythm. RESPIRATORY: No accessory muscle use. Clear to auscultation. Breath sounds equal bilaterally. GASTROINTESTINAL: Abdomen soft, right upper quadrant significantly minimally tender. Nondistended. Hepatic and splenic margins unable to palpate MUSCULOSKELETAL: Extremities without clubbing, cyanosis, or edema. No obvious deformities. NEUROLOGICAL: Awake and alert. No obvious cranial nerve deficits. Motor grossly within normal limits. Five out of 5 muscle strength in the arms and legs. Normal speech. PSYCHIATRIC: Appropriate mood and affect; insight and judgment normal. Results - Labs CBC & Chem 7: 03/29/18 12:57 03/31/18 07:04 Laboratory Results - last 24 hr 03/30/18 03/30/18 03/31/18 14:35 14:35 07:04 Sodium 142 Potassium 3.4 L Chloride 107 Carbon Dioxide 27.8 Anion Gap 7 BUN 1 L Creatinine 0.62 Estimated GFR Greater than 89 Random Glucose 95 Calcium 8.5 Total Bilirubin 1.7 H AST 89 H ALT 65 H Alkaline Phosphatase 96 Total Protein 5.8 L D Albumin 2.9 L Hep Bs Antigen Nonreactive Hep C IgG Ab Nonreactive - Imaging Impressions Cholangiopancreatography MRI 03/30/18 00:00 CONCLUSION: 1. Prominence of the common bile duct again noted measuring up to 1.3 cm with a 6 x 8 mm filling defect along the distal duct. This is of unclear significance but could represent a stone or small mass. 2. Status post cholecystectomy. 3. Benign-appearing cystic lesion in the left lobe of the liver measuring up to approximately 2 x 1.6 cm. Assessment and Plan - Assessment (1) Abdominal pain Code(s): R10.9 - Unspecified abdominal pain Status: Acute (2) Nausea vomiting and diarrhea Code(s): R11.2 - Nausea with vomiting, unspecified; R19.7 - Diarrhea, unspecified Status: Acute (3) Transaminitis Code(s): R74.0 - Nonspecific elevation of levels of transaminase and lactic acid dehydrogenase [LDH] Status: Acute (4) ETOH abuse Code(s): F10.10 - Alcohol abuse, uncomplicated Status: Acute - Plan A/P 63-year-old female presents to the emergency room with complaint of right upper quadrant pain associated with nausea, vomiting, diarrhea. Went to [facility] emergency room for the same, had liver ultrasound done. Endorses drinking 1 bottle of wine a day. No fever, no chills. RUQ pain with elevated LFT's and history of alcohol abuse CT reviewed--and biliary dilatation noted, hx of cholecystectomy. Need to rule out autoimmune causes of transaminitis, possibly elevation is due to alcohol use. -Change to cardiac diet Continue with pain management, oxycodone 5 mg p.o. every 6 as needed Antiemetics as needed Report from liver ultrasound pending from [facility]-pending GI following, input appreciated -Liver workup in progress -Patient is counseled to quit drinking -LFTs and T bili continue to trend down -MRCP done, findings of prominence of CBD up to 1.3 cm with 6.8 mm filling defect along the distal duct. Unclear significance, could represent a stone or small mass. Benign-appearing cystic lesion in the left lobe of liver. Discussed with Dr. Porras ERCP for tomorrow, keep n.p.o. after midnight Alcohol abuse, endorses drinking 1 bottle of wine a day Stable, no tremors, mildly anxious. CIWA protocol, multivitamin/ folate/thiamine -advised to stop drinking. -chest pain- atypical -Serial troponin done, 0.053. continue aspirin and metoprolol. s/p mitral valve repair - continue metoprolol and aspirin . DVT prophylaxis with SCD's Replace K ERCP for tomorrow, n.p.o. after midnight Discussed with RN, patient, Dr. Porras (1) Abdominal pain Qualifiers: Abdominal location: right upper quadrant Qualified Code(s): R10.11 - Right upper quadrant pain
[2018-03-31] MEDS: Multivitamin Inj 10 ML, Thiamine Inj 100 MG, Folic Acid Inj 1 MG in Sodium Chlor 0.9% I... IV.SIG SCH (17:37)
[2018-04-01 05:58] LABS: Albumin 2.8 g/dL (3.4-5.0)
[2018-04-01 06:00] LABS: Total Protein 5.7 g/dL (6.4-8.2)
[2018-04-01] MEDS ORDERED: Metoprolol Tartrate 25 MG Tablet PO ONE (09:30)
[2018-04-01] MEDS ORDERED: Sodium Chlor 0.9% Inj 500 ML IV.CONT ONE (09:30)
[2018-04-01] MEDS ORDERED: Chlorhexidine Gluconate 2% 1 Pack (2 Cloths) TOPICAL ONE (09:30)
[2018-04-01] MEDS ORDERED: Esmolol Bolus Inj 100 MG/10 ML Vial IV.PUSH ONE (11:00)
[2018-04-01] MEDS ORDERED: Lidocaine PF 1% Inj 5 ML Syringe INFILTRATN ONE (11:00)
--- NOTE | 2018-04-01 12:10 | GIPROC ---
[facility] [address] [facility]. [facility], [address] ERCP PROCEDURE REPORT EXAM DATE: 04/01/2018 PATIENT NAME: Valentine Adamson MR #: [id number] BIRTHDATE: 1955 ATTENDING: Allyssa Porras MD ORDER #: [id number] ELECTRIC LOCOMOTIVE CRANE OPERATOR: Kori Pantoja Powell, Bianca, Power, Victoria, and Sagrario Gilbert STATUS: inpatient INDICATIONS: The patient is a 63 yr old female here for an ERCP due to suspected or rule out bile duct stones PROCEDURE PERFORMED: EsophageoGastroDuodenoscopy MEDICATIONS: None and Per Anesthesia. CONSENT: The patient understands the risks and benefits of the procedure and understands that these risks include, but are not limited to: sedation, allergic reaction, infection, perforation and/or bleeding. Alternative means of evaluation and treatment include, among others: physical exam, x-rays, and/or surgical intervention. The patient elects to proceed with this endoscopic procedure. medical equipment was checked for proper function. Hand hygiene and appropriate measures for infection prevention was taken. After the risks, benefits and alternatives of the procedure were thoroughly explained, Informed was verified, confirmed and timeout was successfully executed by the treatment team. With the patient in left semi-prone position, medications were administered intravenously. Pe coby se Unable to pass the side viewer scope into the other esophagus, slim forward scope pass with difficulty, and advanced to the stomach, the entire esophagus especially the lower part appeared deformed and mucosal rent noted from passing the scope . 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 ADVERSE EVENT: There were no complications. IMPRESSIONS: Unable to pass the side viewer scope into the other esophagus, slim forward scope pass with difficulty, and advanced to the stomach, the entire esophagus especially the lower part appeared deformed and mucosal rent noted from passing the scope . 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
--- NOTE | 2018-04-01 12:41 | P.PN ---
Subjective Interval history: Follow-up for right upper quadrant pain, nausea vomiting diarrhea: Right upper quadrant pain gone, no nausea, no vomiting. No fever, no chest pain, no shortness of breath. Very anxious about going to ERCP today. Physical Exam Vital signs: Vital Signs 03/31/18 15:26 03/31/18 15:32 03/31/18 20:00 Temperature 98.9 F 98.1 F Pulse Rate 80 88 Respiratory Rate 18 14 18 Blood Pressure 92/55 L 112/57 L Pulse Oximetry 93 L 04/01/18 00:00 04/01/18 04:00 04/01/18 07:24 Temperature 98.5 F 98.4 F 97.9 F Pulse Rate 71 73 90 Respiratory Rate 16 18 18 Blood Pressure 94/59 L 82/44 L 106/51 L Pulse Oximetry 99 92 L 95 Intake & Output 03/31/18 04/01/18 04/01/18 18:59 06:59 18:59 Intake Total 1231.2 / 1231.2 Balance 1231.2 / 1231.2 Intake: IV 511.2 / 511.2 MVI-12 Inj 10 ML Thiamine Inj 511.2 / 511.2 100 MG Folvite Inj 1 MG In NS Inj 500 ML @ 127.8 mls/hr IV. SIG Q24H [facility] Rx#:[id number] Oral 720 / 720 Other: # Voids 3 Date of Last Bowel Movement 03/30/18 03/31/18 Narrative: GENERAL: Thin built female. No apparent distress SKIN: Warm and dry. HEAD: Atraumatic. Normocephalic. EYES: Pupils equal and round. No scleral icterus. No injection or drainage. ENT: No nasal bleeding or discharge. Mucous membranes pink and moist. NECK: Trachea midline. No JVD. CARDIOVASCULAR: Regular rate and rhythm. RESPIRATORY: No accessory muscle use. Clear to auscultation. Breath sounds equal bilaterally. GASTROINTESTINAL: Abdomen soft, right upper quadrant significantly minimally tender. Nondistended. Hepatic and splenic margins unable to palpate MUSCULOSKELETAL: Extremities without clubbing, cyanosis, or edema. No obvious deformities. NEUROLOGICAL: Awake and alert. No obvious cranial nerve deficits. Motor grossly within normal limits. Five out of 5 muscle strength in the arms and legs. Normal speech. PSYCHIATRIC: Appropriate mood and affect; insight and judgment normal. Results - Labs CBC & Chem 7: 03/29/18 12:57 03/31/18 07:04 Laboratory Results - last 24 hr 04/01/18 03:45 Total Bilirubin 1.2 H Direct Bilirubin 0.4 H Indirect Bilirubin 0.8 AST 69 H ALT 59 H Alkaline Phosphatase 93 Total Protein 5.7 L Albumin 2.8 L Assessment and Plan - Assessment (1) Abdominal pain Code(s): R10.9 - Unspecified abdominal pain Status: Acute (2) Nausea vomiting and diarrhea Code(s): R11.2 - Nausea with vomiting, unspecified; R19.7 - Diarrhea, unspecified Status: Acute (3) Transaminitis Code(s): R74.0 - Nonspecific elevation of levels of transaminase and lactic acid dehydrogenase [LDH] Status: Acute (4) ETOH abuse Code(s): F10.10 - Alcohol abuse, uncomplicated Status: Acute - Plan A/P 63-year-old female presents to the emergency room with complaint of right upper quadrant pain associated with nausea, vomiting, diarrhea. Went to [facility] emergency room for the same, had liver ultrasound done. Endorses drinking 1 bottle of wine a day. No fever, no chills. RUQ pain with elevated LFT's and history of alcohol abuse CT reviewed--and biliary dilatation noted, hx of cholecystectomy. Need to rule out autoimmune causes of transaminitis, possibly elevation is due to alcohol use. -Continue with pain management, oxycodone 5 mg p.o. every 6 as needed Antiemetics as needed Report from liver ultrasound pending from [facility]-pending GI following, input appreciated -Liver workup in progress -Patient is counseled to quit drinking -LFTs and T bili continue to trend down -MRCP done, findings of prominence of CBD up to 1.3 cm with 6.8 mm filling defect along the distal duct. Unclear significance, could represent a stone or small mass. Benign-appearing cystic lesion in the left lobe of liver. ERCP today, follow-up on results Alcohol abuse, endorses drinking 1 bottle of wine a day Stable, no tremors, mildly anxious. [facility] protocol, multivitamin/ folate/thiamine -advised to stop drinking. -chest pain- atypical -Serial troponin done, 0.053. continue aspirin and metoprolol. s/p mitral valve repair - continue metoprolol and aspirin . Endorses vaginal bleeding, rustic color, now green color. -Has appointment with [facility] at the end of the month. Needs to follow-up DVT prophylaxis with SCD's Possible discharge today versus tomorrow depending on ERCP results. Discussed with RN, patient, Dr. Porras (1) Abdominal pain Qualifiers: Abdominal location: right upper quadrant Qualified Code(s): R10.11 - Right upper quadrant pain
--- NOTE | 2018-04-01 12:46 | XR ---
EXAM DATE: 04/01/2018 12:39 PM EDT AGE/SEX: 63 years / Female INDICATIONS: Shortness of breath. Post ERCP. CLINICAL DATA: This is the patient's initial encounter. Patient reports that signs and symptoms have been present for 1 day and indicates a pain score of 0/10. MEDICAL/SURGICAL HISTORY: Asthma. . Cholecystectomy. Right shoulder. Mitral valve replacement. COMPARISON: [facility], XR CHEST PA AND LAT, 08/28/2017. . FINDINGS: A single AP view of the chest demonstrates the lungs to be symmetrically aerated without evidence of mass, infiltrate or effusion. Mild prominence the cardiac silhouette Osseous structures are intact. CONCLUSION: Mild compensated cardiomegaly without congestive failure or pneumothorax. Electronically signed by: Bairon Cox MD 04/01/2018 12:45 PM EDT
[2018-04-01] MEDS ORDERED: *morphine SULFATE 4 MG/ML PERIprocedure ONLY ONE (12:53)
[2018-04-01] MEDS: Metoprolol Tartrate 25 MG Tablet PO SCH ×2 (14:09→20:01)
[2018-04-01] MEDS: Multivitamin Inj 10 ML, Thiamine Inj 100 MG, Folic Acid Inj 1 MG in Sodium Chlor 0.9% I... IV.SIG SCH (20:01)
[2018-04-01] MEDS: MethylPREDNISolone Sod Succinate Inj 125 MG/2 ML Vial IV.PUSH SCH (20:03)
[2018-04-02 06:56] LABS: Anion Gap 6 meq/L (5-15); Blood Urea Nitrogen 2 mg/dL (7-18); Calcium 8.5 mg/dL (8.5-10.1); Carbon Dioxide 30.6 meq/L (21.0-32.0); Chloride 110 meq/L (98-107); Glomerular Filtration Rate Greater Than 89 mL/min (>89); Glucose,Random 124 mg/dL (74-106); Potassium 3.8 meq/L (3.5-5.1); Sodium 147 meq/L (136-145)
[2018-04-02 06:59] LABS: Albumin 2.8 g/dL (3.4-5.0)
[2018-04-02 07:01] LABS: Total Protein 5.9 g/dL (6.4-8.2)
[2018-04-02] MEDS: Metoprolol Tartrate 25 MG Tablet PO SCH (08:18)
[2018-04-02] MEDS: MethylPREDNISolone Sod Succinate Inj 125 MG/2 ML Vial IV.PUSH SCH (08:32)
[2018-04-02] MEDS ORDERED: Diatrizoate Meglum/Diatrizoate Sod Liq 120 ML Bottle (for RAD diag) PO ONE (10:30)
--- NOTE | 2018-04-02 12:42 | FL ---
EXAM DATE: 04/02/2018 10:53 AM EDT AGE/SEX: 63 years / Female INDICATIONS: Dysphagia has become worse. Patient complains of RUQ abdomen pain. Patient is having lo ss of appetitive, weight loss, vomiting. Unsuccessful ERCP. CLINICAL DATA: This is the patient's subsequent encounter. Patient reports that signs and symptoms h ave been present for 3 months and indicates a pain score of 10/10. MEDICAL/SURGICAL HISTORY: Chronic obstructive pulmonary disease. Osteoporosis. Hiatal hernia. Diverticulitis. Asthma. Cholecystectomy. Right arm surgery. History of esophageal stretching, 4 ye ars ago. Perforated esophagus COMPARISON: No prior exams available for comparison. FLUORO TIME: 1.3 IMAGE COUNT: 54 FINDINGS: By history and the endoscope could not be passed down the esophagus. Gastric evidence sonogram was performed. There is a very small cricopharyngeus defect. There are moderate tertiary contractions in the esophag us with no esophageal strictures are identified. There is an ulceration or outpouching in the distal esophagus just above the gastroesophageal junctio n and appears to have normal mucosa. CONCLUSION: There are no constricting lesions identified. Direct visualization is suggested. Electronically signed by: Bairon Cox MD 04/02/2018 12:40 PM EDT
--- NOTE | 2018-04-02 13:45 | P.PNGI ---
Subjective Interval history: Pt ambulating in room. NPO status at present. Pt returned from UGI series. She reports continued mild RUQ abdominal tenderness. Denies nausea or vomiting at this time. <Margarita Gilliam - Last Filed: 04/02/18 13:55> Physical Exam Vital signs: Vital Signs 04/01/18 13:30 04/01/18 13:45 04/01/18 14:00 Temperature Pulse Rate 110 H 108 H 104 H Respiratory Rate 18 18 18 Blood Pressure 93/50 L 96/63 L 94/59 L Pulse Oximetry 100 100 100 04/01/18 15:53 04/01/18 20:00 04/02/18 00:00 Temperature 98.4 F 98.2 F 98.1 F Pulse Rate 114 H 103 H 73 Respiratory Rate 18 18 18 Blood Pressure 105/59 L 97/56 L 91/52 L Pulse Oximetry 92 L 95 95 04/02/18 00:50 04/02/18 08:00 04/02/18 12:00 Temperature 98.2 F Pulse Rate 103 H 103 H Respiratory Rate 18 18 Blood Pressure 98/56 L 111/73 Pulse Oximetry 99 Intake & Output 04/01/18 04/02/18 04/02/18 18:59 06:59 18:59 Intake Total 511.2 / 511.2 Balance 511.2 / 511.2 Weight 55.5 kg Intake: IV 511.2 / 511.2 MVI-12 Inj 10 ML Thiamine Inj 511.2 / 511.2 100 MG Folvite Inj 1 MG In NS Inj 500 ML @ 127.8 mls/hr IV. SIG Q24H [facility] Rx#:[id number] Other: # Voids 3 Date of Last Bowel Movement 03/31/18 03/31/18 03/31/18 - Constitutional no acute distress, cooperative - Routine HEENT Exam Head: Present: normocephalic - Routine Respiratory Exam Present: CTA bilaterally. Absent: respiratory distress - Routine Cardiovascular Exam Present: RRR - Routine Abdominal Exam Present: soft, normoactive bowel sounds, tenderness (right upper quadrant tenderness on palpation). Absent: distended, firm - Routine Extremities Exam Present: pulses intact. Absent: edema - Routine Skin Exam Present: dry, warm - Routine Neurological Exam Present: alert, oriented X3 - Routine Psychiatric Exam Present: cooperative <Margarita Gilliam - Last Filed: 04/02/18 13:55> Vital signs: Vital Signs 04/01/18 20:00 04/02/18 00:00 04/02/18 00:50 Temperature 98.2 F 98.1 F Pulse Rate 103 H 73 103 H Respiratory Rate 18 18 Blood Pressure 97/56 L 91/52 L 98/56 L Pulse Oximetry 95 95 04/02/18 08:00 04/02/18 12:00 Temperature 98.2 F Pulse Rate 103 H Respiratory Rate 18 18 Blood Pressure 111/73 Pulse Oximetry 99 Intake & Output 04/01/18 04/02/18 04/02/18 18:59 06:59 18:59 Intake Total 511.2 / 511.2 1000 / 1000 Balance 511.2 / 511.2 1000 / 1000 Weight 55.5 kg Intake: IV 511.2 / 511.2 1000 / 1000 LR 1000 mL Inj 1,000 ML @ 30 1000 / 1000 mls/hr IV.CONT .Q24H [facility] Rx#: [id number] MVI-12 Inj 10 ML Thiamine Inj 511.2 / 511.2 100 MG Folvite Inj 1 MG In NS Inj 500 ML @ 127.8 mls/hr IV. SIG Q24H [facility] Rx#:[id number] Other: # Voids 3 Date of Last Bowel Movement 03/31/18 03/31/18 03/31/18 <Allyssa Porras A - Last Filed: 04/02/18 16:15> Results - Labs CBC & Chem 7: 03/29/18 12:57 04/02/18 04:47 Laboratory Results - last 24 hr 03/30/18 04/02/18 04/02/18 14:35 04:47 04:47 Sodium 147 H Potassium 3.8 Chloride 110 H Carbon Dioxide 30.6 Anion Gap 6 BUN 2 L Creatinine 0.51 Estimated GFR Greater than 89 Random Glucose 124 H Calcium 8.5 Total Bilirubin 0.9 Direct Bilirubin 0.5 H Indirect Bilirubin 0.4 AST 53 H ALT 54 H Alkaline Phosphatase 80 Total Protein 5.9 L Albumin 2.8 L LISA Screen Neg - Imaging Impressions Upper GI/Barium Swallow X-Ray 04/02/18 00:00 CONCLUSION: There are no constricting lesions identified. Direct visualization is suggested. <Margarita Gilliam - Last Filed: 04/02/18 13:55> - Labs CBC & Chem 7: 03/29/18 12:57 04/02/18 04:47 Laboratory Results - last 24 hr 03/30/18 03/30/18 04/02/18 14:35 14:35 04:47 Sodium Potassium Chloride Carbon Dioxide Anion Gap BUN Creatinine Estimated GFR Random Glucose Calcium Total Bilirubin 0.9 Direct Bilirubin 0.5 H Indirect Bilirubin 0.4 AST 53 H ALT 54 H Alkaline Phosphatase 80 Total Protein 5.9 L Albumin 2.8 L LISA Screen Neg Anti-Smooth Muscle Ab Negative 04/02/18 04:47 Sodium 147 H Potassium 3.8 Chloride 110 H Carbon Dioxide 30.6 Anion Gap 6 BUN 2 L Creatinine 0.51 Estimated GFR Greater than 89 Random Glucose 124 H Calcium 8.5 Total Bilirubin Direct Bilirubin Indirect Bilirubin AST ALT Alkaline Phosphatase Total Protein Albumin LISA Screen Anti-Smooth Muscle Ab - Imaging Impressions Upper GI/Barium Swallow X-Ray 04/02/18 00:00 CONCLUSION: There are no constricting lesions identified. Direct visualization is suggested. <Allyssa Porras - Last Filed: 04/02/18 16:15> Assessment and Plan (1) Transaminitis Status: Acute Code(s): R74.0 - Nonspecific elevation of levels of transaminase and lactic acid dehydrogenase [LDH] (2) Abdominal pain Status: Acute Code(s): R10.9 - Unspecified abdominal pain (3) Nausea vomiting and diarrhea Status: Acute Code(s): R11.2 - Nausea with vomiting, unspecified; R19.7 - Diarrhea, unspecified - Plan Plan: -NPO- UGI completed this am. Findings reveal--> There are no constricting lesions identified. Direct visualization is suggested -Plan for MRCP today. -Continue to monitor labs: LFTs reviewed and trending down 04/02/18 AST 53, ALT 54 -Immunology labs to rule out Auto immune Hepatitis: pending -Refrain from ETOH -Avoid Hepatotoxic drugs -Supportive care Further recommendations to follow This patient has been seen by myself and Dr. Porras and this note is written on his behalf. <Margarita Gilliam - Last Filed: 04/02/18 13:55> (1) Transaminitis Status: Acute Code(s): R74.0 - Nonspecific elevation of levels of transaminase and lactic acid dehydrogenase [LDH] (2) Abdominal pain Status: Acute Code(s): R10.9 - Unspecified abdominal pain (3) Nausea vomiting and diarrhea Status: Acute Code(s): R11.2 - Nausea with vomiting, unspecified; R19.7 - Diarrhea, unspecified - Attending Attestation Seen and examined, plan as above, UGI images reviewed, will recheck MRCP and consider repeat ERCP after diltation if stone still within the CBD. <Allyssa Porras - Last Filed: 04/02/18 16:15> <Margarita Gilliam - Last Filed: 04/02/18 13:55> (2) Abdominal pain Qualifiers: Abdominal location: right upper quadrant Qualified Code(s): R10.11 - Right upper quadrant pain <Allyssa Porras - Last Filed: 04/02/18 16:15> (2) Abdominal pain Qualifiers: Abdominal location: right upper quadrant Qualified Code(s): R10.11 - Right upper quadrant pain
[2018-04-02 13:55] LABS: Smooth Muscle Total Auto Abs Negative (Negative)
--- NOTE | 2018-04-02 14:06 | P.PN ---
Subjective Interval history: Follow-up abdominal pain, abnormal liver function tests and dysphagia. Patient wants to eat. Discussed with nursing, was having visual hallucinations which patient currently denies. CIWA score of 12. Denies mental conditions Physical Exam Vital signs: Vital Signs 04/01/18 15:53 04/01/18 20:00 04/02/18 00:00 Temperature 98.4 F 98.2 F 98.1 F Pulse Rate 114 H 103 H 73 Respiratory Rate 18 18 18 Blood Pressure 105/59 L 97/56 L 91/52 L Pulse Oximetry 92 L 95 95 04/02/18 00:50 04/02/18 08:00 04/02/18 12:00 Temperature 98.2 F Pulse Rate 103 H 103 H Respiratory Rate 18 18 Blood Pressure 98/56 L 111/73 Pulse Oximetry 99 Intake & Output 04/01/18 04/02/18 04/02/18 18:59 06:59 18:59 Intake Total 511.2 / 511.2 1000 / 1000 Balance 511.2 / 511.2 1000 / 1000 Weight 55.5 kg Intake: IV 511.2 / 511.2 1000 / 1000 LR 1000 mL Inj 1,000 ML @ 30 1000 / 1000 mls/hr IV.CONT .Q24H [facility] Rx#: [id number] MVI-12 Inj 10 ML Thiamine Inj 511.2 / 511.2 100 MG Folvite Inj 1 MG In NS Inj 500 ML @ 127.8 mls/hr IV. SIG Q24H [facility] Rx#:[id number] Other: # Voids 3 Date of Last Bowel Movement 03/31/18 03/31/18 03/31/18 Narrative: GENERAL: Thin built female. No apparent distress SKIN: Warm and dry. CARDIOVASCULAR: Regular rate and rhythm. RESPIRATORY: No accessory muscle use. Clear to auscultation. Breath sounds equal bilaterally. GASTROINTESTINAL: Abdomen soft, right upper quadrant significantly minimally tender. Nondistended. MUSCULOSKELETAL: Extremities without clubbing, cyanosis, or edema. No obvious deformities. NEUROLOGICAL: Awake and alert. No obvious cranial nerve deficits. Motor grossly within normal limits. Five out of 5 muscle strength in the arms and legs. Normal speech. PSYCHIATRIC: Appropriate mood and affect; insight and judgment normal. Results - Labs CBC & Chem 7: 03/29/18 12:57 04/02/18 04:47 Laboratory Results - last 24 hr 03/30/18 03/30/18 04/02/18 14:35 14:35 04:47 Sodium Potassium Chloride Carbon Dioxide Anion Gap BUN Creatinine Estimated GFR Random Glucose Calcium Total Bilirubin 0.9 Direct Bilirubin 0.5 H Indirect Bilirubin 0.4 AST 53 H ALT 54 H Alkaline Phosphatase 80 Total Protein 5.9 L Albumin 2.8 L LISA Screen Neg Anti-Smooth Muscle Ab Negative 04/02/18 04:47 Sodium 147 H Potassium 3.8 Chloride 110 H Carbon Dioxide 30.6 Anion Gap 6 BUN 2 L Creatinine 0.51 Estimated GFR Greater than 89 Random Glucose 124 H Calcium 8.5 Total Bilirubin Direct Bilirubin Indirect Bilirubin AST ALT Alkaline Phosphatase Total Protein Albumin LISA Screen Anti-Smooth Muscle Ab - Imaging Impressions Upper GI/Barium Swallow X-Ray 04/02/18 00:00 CONCLUSION: There are no constricting lesions identified. Direct visualization is suggested. - Procedures Attempted ERCP Assessment and Plan - Assessment (1) Abdominal pain Code(s): R10.9 - Unspecified abdominal pain Status: Acute (2) Nausea vomiting and diarrhea Code(s): R11.2 - Nausea with vomiting, unspecified; R19.7 - Diarrhea, unspecified Status: Acute (3) Transaminitis Code(s): R74.0 - Nonspecific elevation of levels of transaminase and lactic acid dehydrogenase [LDH] Status: Acute (4) ETOH abuse Code(s): F10.10 - Alcohol abuse, uncomplicated Status: Acute - Plan 63-year-old female presents to the emergency room with complaint of right upper quadrant pain associated with nausea, vomiting, diarrhea. Went to [facility] emergency room for the same, had liver ultrasound done. Endorses drinking 1 bottle of wine a day. No fever, no chills. RUQ pain with elevated LFT's and history of alcohol abuse CT reviewed--and biliary dilatation noted, hx of cholecystectomy. Need to rule out autoimmune causes of transaminitis, possibly elevation is due to alcohol use. -Continue with pain management, oxycodone 5 mg p.o. every 6 as needed Antiemetics as needed Report from liver ultrasound pending from [facility]-pending GI following, input appreciated -Liver workup in progress -Patient is counseled to quit drinking -LFTs and T bili continue to trend down Attempted ERCP unable to advance secondary to deformed esophagus history of perforation. Upper GI series with no abnormality. Swallowing eval. ERCP today, follow-up on results Alcohol abuse, endorses drinking 1 bottle of wine a day Stable, no tremors, mildly anxious. CIWA protocol, multivitamin/ folate/thiamine -advised to stop drinking. Hallucination from alcohol withdrawal versus medication) steroid. Improved with Ativan. Monitor -chest pain- atypical -Serial troponin done, 0.053. continue aspirin and metoprolol. s/p mitral valve repair - continue metoprolol and aspirin . Endorses vaginal bleeding, rustic color, now green color. -Has appointment with TELEMARKETER SUPERVISOR at the end of the month. Needs to follow-up COPD exacerbation. Improved continue duo nebs and steroids switch to po if she passes swallowing eval DVT prophylaxis with SCD's (1) Abdominal pain Qualifiers: Abdominal location: right upper quadrant Qualified Code(s): R10.11 - Right upper quadrant pain
--- NOTE | 2018-04-02 16:53 | P.AMA ---
AMA Note - AMA Note AMA Statement: Patient Valentine Adamson has decided to leave the hospital against medical advice. This patient has the capacity to refuse care and understands the risks of leaving, including permanent disability and/or , and has had an opportunity to ask questions about his/her condition. The patient has been informed that he/she may return for care at any time, and follow up has been arranged/advised. - AMA Note Discharge Disposition: Left Against Medical Advice Patient Condition on Discharge: Stable
--- NOTE | 2018-04-02 16:56 | P.DS ---
Date of admission: 04/02/18 15:30 Primary care physician: Shahram Whipple DO Brief History from admission: patient is a 63 y/o female with history of MVP/MR - s/p mitral valve repair, with history of alcohol abuse, presented to ER with abdominal pain. she says that the pain has been going on for a couple of months and associated with on and off nausea, vomiting and diarrhea. pain is localized to the RUQ. she had some night sweats and reports 15 pound weight loss over the past month or two. she also says that since the surgery she's had some pain to the right chest but today she had some left sided chest pain. she was seen at [facility] yesterday and she says that she had some work-up including sonogram of the liver - result of which unknown. she says that she was told that she had ' some withdrawal symptoms'. she says that she started to drink two years ago after she lost her mother. she drinks wine daily and the last drink was four days ago. DS: Diagnosis - Discharge Diagnosis (1) Abdominal pain Status: Acute (2) Nausea vomiting and diarrhea Status: Acute (3) Transaminitis Status: Acute (4) ETOH abuse Status: Acute DS: Summary Hospital Course: 63-year-old female presents to the emergency room with complaint of right upper quadrant pain associated with nausea, vomiting, diarrhea. Went to [facility] emergency room for the same, had liver ultrasound done. Endorses drinking 1 bottle of wine a day. No fever, no chills. RUQ pain with elevated LFT's and history of alcohol abuse CT reviewed--and biliary dilatation noted, hx of cholecystectomy. Need to rule out autoimmune causes of transaminitis, possibly elevation is due to alcohol use. -Continue with pain management, oxycodone 5 mg p.o. every 6 as needed Antiemetics as needed Report from liver ultrasound pending from [facility]-pending GI following, input appreciated -Liver workup in progress -Patient is counseled to quit drinking -LFTs and T bili continue to trend down Attempted ERCP unable to advance secondary to deformed esophagus history of perforation. Upper GI series with no abnormality. Swallowing eval. MRCP with contrast today, follow-up on results Alcohol abuse, endorses drinking 1 bottle of wine a day Stable, no tremors, mildly anxious. WA protocol, multivitamin/ folate/thiamine -advised to stop drinking. Hallucination from alcohol withdrawal versus medication) steroid. Improved with Ativan. Monitor -chest pain- atypical -Serial troponin done, 0.053. continue aspirin and metoprolol. s/p mitral valve repair - continue metoprolol and aspirin . Endorses vaginal bleeding, rustic color, now green color. -Has appointment with MASTER ELECTRICIAN at the end of the month. Needs to follow-up COPD exacerbation. Improved continue duo nebs and steroids switch to po if she passes swallowing eval DVT prophylaxis with SCD's Signed out AMA pt was competent to make informed decisions - Time Spent with Patient Total time spent providing and/or coordinating discharge services: Less than 30 minutes - Quality: VTE Deep Vein Thrombosis/Pulmonary Embolism Present on Admission: No Exam Vital signs: Vital Signs 04/01/18 20:00 04/02/18 00:00 04/02/18 00:50 Temperature 98.2 F 98.1 F Pulse Rate 103 H 73 103 H Respiratory Rate 18 18 Blood Pressure 97/56 L 91/52 L 98/56 L Pulse Oximetry 95 95 04/02/18 08:00 04/02/18 12:00 04/02/18 16:00 Temperature 98.2 F 97.4 F L Pulse Rate 103 H 101 H Respiratory Rate 18 18 18 Blood Pressure 111/73 99/55 L Pulse Oximetry 99 95 Intake & Output 04/01/18 04/02/18 04/02/18 18:59 06:59 18:59 Intake Total 511.2 / 511.2 1000 / 1000 Balance 511.2 / 511.2 1000 / 1000 Weight 55.5 kg Intake: IV 511.2 / 511.2 1000 / 1000 LR 1000 mL Inj 1,000 ML @ 30 1000 / 1000 mls/hr IV.CONT .Q24H [facility] Rx#: [id number] MVI-12 Inj 10 ML Thiamine Inj 511.2 / 511.2 100 MG Folvite Inj 1 MG In NS Inj 500 ML @ 127.8 mls/hr IV. SIG Q24H [facility] Rx#:[id number] Other: # Voids 3 Date of Last Bowel Movement 03/31/18 03/31/18 03/31/18 Narrative: GENERAL: Thin built female. No apparent distress SKIN: Warm and dry. CARDIOVASCULAR: Regular rate and rhythm. RESPIRATORY: No accessory muscle use. Clear to auscultation. Breath sounds equal bilaterally. GASTROINTESTINAL: Abdomen soft, right upper quadrant significantly minimally tender. Nondistended. MUSCULOSKELETAL: Extremities without clubbing, cyanosis, or edema. No obvious deformities. NEUROLOGICAL: Awake and alert. No obvious cranial nerve deficits. Motor grossly within normal limits. Five out of 5 muscle strength in the arms and legs. Normal speech. No hallucinations. No tremors PSYCHIATRIC: Appropriate mood and affect; Results Procedures completed during hospitalization: Attempted ERCP Labs on day of discharge: Labs from last 24 hours 04/02/18 04/02/18 03/30/18 04:47 04:47 14:35 Sodium 147 H Potassium 3.8 Chloride 110 H Carbon Dioxide 30.6 Anion Gap 6 BUN 2 L Creatinine 0.51 Estimated GFR Greater than 89 Random Glucose 124 H Calcium 8.5 Total Bilirubin 0.9 Direct Bilirubin 0.5 H Indirect Bilirubin 0.4 AST 53 H ALT 54 H Alkaline Phosphatase 80 Total Protein 5.9 L Albumin 2.8 L Anti-Smooth Muscle Ab Negative - Impressions ITS Impressions Abdomen/Pelvis CT 03/29/18 12:46 CONCLUSION: 1. Prominent common duct 2. Do not see inflammatory changes in the mesentery 3. Moderate fatty replacement to the liver with small low-density mass laterally left lobe segment 7 as above Cholangiopancreatography MRI 03/30/18 00:00 CONCLUSION: 1. Prominence of the common bile duct again noted measuring up to 1.3 cm with a 6 x 8 mm filling defect along the distal duct. This is of unclear significance but could represent a stone or small mass. 2. Status post cholecystectomy. 3. Benign-appearing cystic lesion in the left lobe of the liver measuring up to approximately 2 x 1.6 cm. Chest X-Ray 04/01/18 12:21 CONCLUSION: Mild compensated cardiomegaly without congestive failure or pneumothorax. Upper GI/Barium Swallow X-Ray 04/02/18 00:00 CONCLUSION: There are no constricting lesions identified. Direct visualization is suggested. Discharge Plan - Discharge Disposition Patient Disposition: Against Medical Advice - Discharge Condition Condition: Stable - Discharge Order Discharge Orders: AMA Discharge (Routine); Ordered 04/02/18 Ordered By: Esa Jackson - Discharge Details Anticipated Discharge Date: 03/31/18 - Physicians Team Primary Care Provider: Shahram Whipple Attending Provider: Esa Jackson Other Providers: Josiane Frederick MD ; Yifan Saha
[2018-04-02] MEDS ORDERED: MethylPREDNISolone Sod Succinate Inj 125 MG/2 ML Vial IV.PUSH SCH (21:00)
== END 2018-04-02 16:26 | disposition left against medical advice (07) ==
LOC: NEDA 11:10 → NEPD 11:10 → NEPHCDU 16:59 → NEPGCP 17:16 → N07 04-01 17:38
PROVIDERS: ADMIT Internal Medicine; ATTEND Internal Medicine